=== PATIENT | male | born 1955 | race Caucasian/White ===

== ENCOUNTER 2017-12-09 11:25 | Day surgery (SDC) | payer BC ==
[2017-12-09] MEDS ORDERED: ALPRAZolam 0.5 MG TAB PO ONE (11:26)
[2017-12-09 11:39] VITALS: RESP 16; TEMP 97.9
[2017-12-09 12:57] VITALS: BP 124/83; PULSE 69
--- NOTE | 2017-12-09 14:59 | US ---
EXAMINATION TYPE: US FNA thyroid DATE OF EXAM: 12/09/2017 COMPARISON: NONE HISTORY: Thyroid nodule, E04.1 Maximal barrier technique was utilized. Ultrasound using sterile technique. The skin overlying the no dule was localized with ultrasound and the overlying skin prepped and draped. Lidocaine used for loca l anesthesia. 5 passes with a 25-gauge needle were made into the nodule under ultrasound guidance. As pirate specimen submitted to cytology. Following the procedure hemostasis achieved. No immediate comp lication IMPRESSION: Status post ultrasound-guided fine-needle aspiration of thyroid nodule, pathology pending .
== END 2017-12-09 13:07 | disposition home or self-care (01) ==
LOC: RADPROMAIN 11:25
PROVIDERS: ATTEND Family Medicine
DX: E04.1 Nontoxic single thyroid nodule (principal)
CPT/HCPCS: 10022; 76942; 88173; 88305

== ENCOUNTER 2018-10-22 07:04 | Day surgery (SDC) | payer BC ==
[2018-10-20 09:51] VITALS: BMI 27.8
[~2018-10-22 07:04] MED LIST: LACTATED RINGERS 1,000 ML IV SCH
[2018-10-22 07:21] VITALS: TEMP 97.8
[2018-10-22] MEDS ORDERED: PROPOFOL 10 MG/ML 20 ML VIAL IV ONE (08:04)
--- NOTE | 2018-10-22 08:14 | P.GSHP ---
History of Present Illness H&P Date: 10/22/18 Chief Complaint: History of colon polyps This is a 63-year-old male referred from Dr. Fiona jackson. Patient is today for colonoscopy. He's had history of colon polyps. Past Medical History Past Medical History: Osteoarthritis (OA), Prostate Disorder Additional Past Medical History / Comment(s): DIVERTICULITIS. hx ruptured colon November 21, 2015. OA NECK, PINCHED NERVE. History of Any Multi-Drug Resistant Organisms: None Reported Past Surgical History: Bowel Resection, Orthopedic Surgery, Tonsillectomy Additional Past Surgical History / Comment(s): colonosocpy. lt shoulder sx. orif rt elbow. colostomy, THEN REVERSAL. Past Anesthesia/Blood Transfusion Reactions: No Reported Reaction Smoking Status: Former smoker - Past Family History Mother Family Medical History: No Reported History Medications and Allergies Home Medications Medication Instructions Recorded Confirmed Type Cyclobenzaprine [Flexeril] 5 mg PO BID 02/13/16 10/22/18 History Gabapentin 600 mg PO BID 02/13/16 10/22/18 History Ibuprofen [Motrin] 800 mg PO BID 02/13/16 10/20/18 History Acetaminophen [Tylenol Extra 1,000 mg PO Q6H PRN 09/02/17 10/20/18 History Strength] Amitriptyline HCl 10 mg PO HS 09/02/17 10/22/18 History Ergocalciferol [Vitamin D2] 50,000 unit PO FR 09/02/17 10/22/18 History Ranitidine HCl [Zantac] 300 mg PO DAILY 09/02/17 10/22/18 History Tamsulosin HCl [Flomax] 0.4 mg PO DAILY 09/02/17 10/22/18 History Multivitamin/Iron/Folic Acid 1 each PO DAILY 10/20/18 10/22/18 History [Centrum Adults Tablet] Allergies Allergy/AdvReac Type Severity Reaction Status Date / Time Iodinated Contrast- Oral and Allergy Nausea & Verified 10/22/18 07:22 IV Dye Vomiting Penicillins Allergy Unknown Verified 10/22/18 07:22 Childhood IV DYE AdvReac Nausea & Uncoded 10/22/18 07:22 Vomiting Surgical - Exam Vital Signs Temp Pulse Resp BP Pulse Ox 97.8 F 71 17 143/90 98 10/22/18 07:19 10/22/18 07:19 10/22/18 07:19 10/22/18 07:19 10/22/18 07:19 - General well developed, no distress - Eyes PERRL - ENT normal pinna - Neck no masses - Respiratory normal expansion - Cardiovascular Rhythm: regular - Abdomen Abdomen: soft, non tender Assessment and Plan Assessment: History of colon polyps. We'll perform colonoscopy.
--- NOTE | 2018-10-22 08:27 | P.OP ---
Date of Procedure: 10/22/18 Preoperative Diagnosis: History of colon polyps Postoperative Diagnosis: Diverticulosis Procedure(s) Performed: Colonoscopy Anesthesia: MAC Surgeon: Anthony Quintana Pathology: other (None) Condition: stable Disposition: PACU Description of Procedure: The patient's placed on the endoscopy table in the lateral position. He received IV sedation. Digital rectal exam was performed which revealed no abnormalities. The flexible colonoscope was then placed patient anus and passed throughout the entire colon. The ileocecal valve was visualized. Cecum , ascending and transverse colon appeared normal. The descending colon had a few scattered diverticula.. The patient a previous colorectal anastomosis and this was normal. Scope was withdrawn into the rectum and this scope was withdrawn for patient.
[2018-10-22 09:04] VITALS: BP 121/81; PULSE 63; RESP 18
== END 2018-10-22 09:05 | disposition home or self-care (01) ==
LOC: ORWHC2ENDO 07:04
PROVIDERS: ATTEND Surgery
DX: Z12.11 Encounter for screening for malignant neoplasm of colon (principal); Z86.010 Personal history of colon polyps; K57.30 Diverticulosis of large intestine without perforation or abscess without bleeding; Z98.0 Intestinal bypass and anastomosis status; N42.9 Disorder of prostate, unspecified; M19.90 Unspecified osteoarthritis, unspecified site; Z87.891 Personal history of nicotine dependence; Z79.1 Long term (current) use of non-steroidal anti-inflammatories (NSAID); Z79.899 Other long term (current) drug therapy; Z88.0 Allergy status to penicillin; Z91.041 Radiographic dye allergy status
CPT/HCPCS: J2704; G0105; 45378

== ENCOUNTER → 2020-01-05 | Outpatient (CLI) | payer BC ==
--- NOTE | 2020-01-05 14:10 | CTL ---
EXAMINATION TYPE: CT Low Dose Lung DATE OF EXAM ORDERED: 01/05/2020 HISTORY: Personal history of tobacco use. Lung cancer screening CT DLP: [address] CTDI: 2.41 mGy Automated exposure control for dose reduction was used. SCREENING VISIT: Initial COMPARISON: None TECHNIQUE: Low dose computed tomography scan was performed through the chest at 1 mm thick sections a nd reconstructed images in the coronal plane at [address] DIAGNOSTIC QUALITY: Satisfactory FINDINGS: LUNG NODULES: Present, detailed below: There is a 0.5 cm peripheral right apical nodule. Series 5 image 25. There is a 0.3 cm nodule periphery right upper lobe. Series 5 image 44. LUNGS: COPD: Severity: None Fibrosis: Severity: None Lymph nodes: None Other findings: None RIGHT PLEURAL SPACE: Effusion: None Calcification: None Thickening: None Pneumothorax: None LEFT PLEURAL SPACE: Effusion: None Calcification: None Thickening: None Pneumothorax: None HEART: Heart Size: Normal Coronary calcification: Moderate Pericardial effusion: None OTHER FINDINGS: Upper abdomen: Normal Bony thorax: Normal Supraclavicular region: Normal Other: Ascending thoracic aorta at the level the main pulmonary artery measures 3.8 cm. The main pul monary artery at the bifurcation measures 3.4 cm. IMPRESSION: Couple of peripheral punctate nodularities within the right apex. Probably benign finding s. Short-term monitoring is recommended. FOLLOW UP CT CHEST RECOMMENDATION: Follow-up CT chest in [address] LUNG RAD: 3
== END ==
LOC: RADCTMAIN 07:53
PROVIDERS: ATTEND Family Medicine
DX: R91.8 Other nonspecific abnormal finding of lung field (principal); Z87.891 Personal history of nicotine dependence

== ENCOUNTER 2020-09-06 07:29 | Day surgery (SDC) | payer MEDICARE, BC, OTHER ==
[2020-09-04 10:54] VITALS: BMI 28.1
[2020-09-06 08:42] VITALS: RESP 16; TEMP 97.7
[2020-09-06] MEDS ORDERED: LIDOCAINE 1% (10MG/ML) FOR IV START INTRADERMA ONE (08:45)
[2020-09-06] MEDS ORDERED: LIDOCAINE 1% INJ 10MG/ML (20 ML MDV) ONE (09:13)
[2020-09-06] MEDS ORDERED: PROPOFOL 10 MG/ML 20 ML VIAL IV ONE (09:13)
--- NOTE | 2020-09-06 09:13 | P.GSHP ---
History of Present Illness H&P Date: 09/06/20 Chief Complaint: Screening colonoscopy This a 64-year-old male presents today for screening colonoscopy. He denies a significant recheck complains. Past Medical History Past Medical History: Hyperlipidemia, Osteoarthritis (OA), Prostate Disorder Additional Past Medical History / Comment(s): DIVERTICULITIS. hx ruptured colon November 21, 2015. OA NECK, PINCHED NERVE. History of Any Multi-Drug Resistant Organisms: None Reported Past Surgical History: Bowel Resection, Orthopedic Surgery, Tonsillectomy Additional Past Surgical History / Comment(s): bowel resection with colostomy/later reversal, left shoulder surgery, surgery for fx rt elbow, Past Anesthesia/Blood Transfusion Reactions: No Reported Reaction Smoking Status: Current some day smoker - Past Family History Mother Family Medical History: No Reported History Medications and Allergies Home Medications Medication Instructions Recorded Confirmed Type Ergocalciferol [Vitamin D2] 50,000 unit PO FR 09/02/17 09/06/20 History Tamsulosin HCl [Flomax] 0.4 mg PO DAILY 09/02/17 09/06/20 History Multivitamin/Iron/Folic Acid 1 each PO DAILY 10/20/18 09/06/20 History [Centrum Adults Tablet] Acetaminophen [Tylenol Arthritis] 650 mg PO BID 09/04/20 09/06/20 History Aspirin [Adult Low Dose Aspirin EC] 81 mg PO DAILY 09/04/20 09/06/20 History Atorvastatin [Lipitor] 40 mg PO HS 09/04/20 09/06/20 History Baclofen 10 mg PO QAM 09/04/20 09/06/20 History Famotidine [Pepcid] 40 mg PO BID 09/04/20 09/06/20 History Meloxicam 15 mg PO DAILY 09/04/20 09/06/20 History OXcarbazepine [Trileptal] 300 mg PO QAM 09/04/20 09/06/20 History Allergies Allergy/AdvReac Type Severity Reaction Status Date / Time Iodinated Contrast Media Allergy Nausea & Verified 09/04/20 10:39 [Iodinated Contrast- Oral Vomiting and IV Dye] Penicillins Allergy Unknown Verified 09/04/20 10:39 Childhood IV DYE AdvReac Nausea & Uncoded 09/04/20 10:39 Vomiting Surgical - Exam Vital Signs Temp Pulse Resp BP Pulse Ox 97.7 F 66 16 143/87 98 09/06/20 08:38 09/06/20 08:38 09/06/20 08:38 09/06/20 08:38 09/06/20 08:38 - General well developed, well nourished, no distress - Eyes PERRL - ENT normal pinna - Neck no masses, no bruits - Respiratory normal expansion - Cardiovascular Rhythm: regular - Abdomen Abdomen: soft, non tender Assessment and Plan Assessment: We'll perform screening colonoscopy.
--- NOTE | 2020-09-06 09:34 | P.OP ---
Date of Procedure: 09/06/20 Preoperative Diagnosis: Screening colonoscopy Postoperative Diagnosis: Left colon polyp Normal colonoscopy status post sigmoid colectomy Procedure(s) Performed: colonoscopy Anesthesia: MAC Surgeon: Anthony Quintana Pathology: other (colon polyp) Condition: stable Disposition: PACU Description of Procedure: The patient's placed on the endoscopy table lateral position. He received IV sedation. Digital rectal exam performed which revealed no the abnormalities. The prostate was symmetric without nodules. The flexible colonoscope was then placed patient anus passed throughout the entire colon. The ileocecal valve was visually's. The cecum, ascending and transverse colon appeared normal. In the descending colon there is small sessile polyp was removed with cold forcep. The scope was withdrawn. The colorectal anastomosis was visualized. Scope summer back the rectum this appeared normal. Scope.
[2020-09-06 09:53] VITALS: BP 117/87; PULSE 59
== END 2020-09-06 10:18 | disposition home or self-care (01) ==
LOC: ORWHC2ENDO 07:29
PROVIDERS: ATTEND Surgery
DX: Z12.11 Encounter for screening for malignant neoplasm of colon (principal); D12.4 Benign neoplasm of descending colon; Z98.0 Intestinal bypass and anastomosis status; E78.5 Hyperlipidemia, unspecified; M19.90 Unspecified osteoarthritis, unspecified site; Z87.19 Personal history of other diseases of the digestive system; F17.210 Nicotine dependence, cigarettes, uncomplicated; N40.0 Benign prostatic hyperplasia without lower urinary tract symptoms; K21.9 Gastro-esophageal reflux disease without esophagitis; Z97.2 Presence of dental prosthetic device (complete) (partial); Z98.890 Other specified postprocedural states; Z79.1 Long term (current) use of non-steroidal anti-inflammatories (NSAID); Z79.82 Long term (current) use of aspirin; Z79.899 Other long term (current) drug therapy; Z88.0 Allergy status to penicillin; Z91.041 Radiographic dye allergy status
CPT/HCPCS: 88305; 45380; J2001; J2704

== ENCOUNTER → 2020-09-10 | Outpatient (CLI) | payer MEDICARE, BC ==
[2020-09-10 11:43] LABS: African American GFR (CKD) >90 (>60 ml/min/1.73 sqM); Blood Urea Nitrogen 21 mg/dL (9-20); Non-African American GFR(CKD) 89 (>60 ml/min/1.73 sqM)
--- NOTE | 2020-09-10 18:40 | CT ---
EXAMINATION TYPE: CT chest w con DATE OF EXAM: 09/10/2020 COMPARISON: CT low dose lung screening 01/05/2020 HISTORY: Pulmonary nodule CT DLP: 395.9 mGycm Automated exposure control for dose reduction was used. CONTRAST: CT scan of the chest is performed with IV Contrast, patient injected with 100 mL of Isovue 300. FINDINGS: LUNGS: 4 mm right upper lobe pulmonary nodule (4:13) and is unchanged versus 01/05/2020. The previousl y demonstrated apical pulmonary nodule is not discretely seen on current exam, and may be related to biapical pleural thickening which is unchanged (6:60). Mild centrilobular emphysema. Lungs are grossl y clear. No new concerning parenchymal mass or nodule identified. No pleural effusion. No pneumothora x. The tracheobronchial tree is patent. MEDIASTINUM/SOFT TISSUES: No axillary, hilar, or mediastinal lymphadenopathy greater than 1 cm. Cardi ac size is normal. No pericardial effusion. No thoracic aortic aneurysm. The ascending thoracic aorta measures 3.5 cm, within normal limits. The main pulmonary artery is enlarged measuring 3.1 cm. The r ight thyroid lobe is asymmetrically enlarged and heterogenous. UPPER ABDOMEN: 2.3 x 1.8 cm right adrenal indeterminate nodule. Splenule. Too small to characterize h ypodense lesion at the right hepatic dome (3:45). OSSEOUS: Degenerative changes of the spine. IMPRESSION: 1. Right upper lobe 4 mm pulmonary nodule and biapical pleural thickening unchanged versus 01/05/2020 CT comparison. Findings are likely benign. Recommend follow-up annual low-dose lung screening CT in 1 year. 2. Indeterminate right adrenal 2.3 cm nodule. Recommend follow-up CT abdomen adrenal mass protocol. 3. Asymmetrically enlarged and heterogenous right thyroid gland. Recommend dedicated thyroid ultrasou nd. 4. Enlarged main pulmonary artery may represent pulmonary arterial hypertension. A Yellow level critical message alert has been initiated for Fiona Fletcher DO via the [facility] Critical Results System on 09/10/2020 6:37 PM. This message alert has been sent to Fiona Fletcher DO via the preferences provided by the clinician for the receipt of Radiology Critical Findings. inMarket e ID [id number].
== END | disposition home or self-care (01) ==
LOC: RADCTMAIN 11:03
PROVIDERS: ATTEND Family Medicine
DX: R91.1 Solitary pulmonary nodule (principal); J92.9 Pleural plaque without asbestos; I28.8 Other diseases of pulmonary vessels
CPT/HCPCS: 82565; 84520; 71260; 36415; Q9967

== ENCOUNTER → 2020-09-25 | Outpatient (CLI) | payer MEDICARE, BC, OTHER ==
[2020-09-25 14:29] LABS: African American GFR (CKD) >90 (>60 ml/min/1.73 sqM); Blood Urea Nitrogen 23 mg/dL (9-20); Non-African American GFR(CKD) 84 (>60 ml/min/1.73 sqM)
--- NOTE | 2020-09-26 08:02 | CT ---
EXAMINATION TYPE: CT abdomen w con, adrenal mass protocol. DATE OF EXAM: 09/25/2020 COMPARISON: Correlation CT chest 01/05/2020 HISTORY: 65-year-old male Adrenal mass TECHNIQUE: Contiguous axial scanning of the abdomen before and following administration of 100 ml Iso patrice 300 IV contrast. Lung delays through the adrenal glands were also performed. Coronal and sagitta l reconstructions. CT DLP: 1001.6 mGycm Automated exposure control for dose reduction was used. FINDINGS: Heart normal size without pericardial effusion. Lung bases clear without pleural effusion. Liver borderline in size at 17.2 cm. No focal lesion or biliary ductal dilatation. Portal venous syst em is patent. Gallbladder, left adrenal gland, kidneys, spleen with a couple inferior splenules, and pancreas appea r within normal limits. Right adrenal nodule measures 2.2 x 2.0 cm. Attenuation on the noncontrast series is 2 to 5 Hounsfiel d units compatible with a lipid rich adrenal adenoma. No dilated small bowel, free fluid, or free air. No mesenteric or retroperitoneal lymphadenopathy. Normal appendix. Mild stool burden. No pericolonic inflammatory change. Bones: Facet arthropathy lower lumbar spine. Degenerated S-shaped curvature of the lumbar spine. Grad e 1 retrolisthesis L2-L3 and L3-L4. IMPRESSION: A 2.2 X 2.0 CM NODULE OF THE RIGHT ADRENAL GLAND WITH DENSITY CHARACTERISTICS COMPATIBLE WITH A BENIG N LIPID RICH ADRENAL ADENOMA.
== END | disposition home or self-care (01) ==
LOC: RADCTMAIN 13:48
PROVIDERS: ATTEND Family Medicine
DX: E27.8 Other specified disorders of adrenal gland (principal); Z91.041 Radiographic dye allergy status
CPT/HCPCS: 82565; 84520; 74160; 36415; Q9967

== ENCOUNTER → 2020-10-08 | Outpatient (CLI) | payer MEDICARE, BC, OTHER ==
--- NOTE | 2020-10-08 11:54 | NM ---
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 FINDINGS: There is homogeneous distribution of radiotracer throughout both thyroid lobes. I do not see evidence for hot or cold nodule. IMPRESSION: No evidence for hot or cold nodule at this time.
== END | disposition home or self-care (01) ==
LOC: RADNMMAIN 10:36
PROVIDERS: ATTEND Family Medicine
DX: E01.0 Iodine-deficiency related diffuse (endemic) goiter (principal); Z88.0 Allergy status to penicillin; Z91.041 Radiographic dye allergy status
CPT/HCPCS: 78013; A9512

== ENCOUNTER → 2021-08-30 | Outpatient (CLI) | payer MEDICARE, BC, OTHER ==
--- NOTE | 2021-08-30 10:35 | XR ---
EXAMINATION TYPE: XR Hip Complete RT DATE OF EXAM: 08/30/2021 COMPARISON: Right hip HISTORY: Right hip pain TECHNIQUE: 2 view right hip FINDINGS: No acute fracture or dislocation is evident. Femoral head articulates with the acetabulum. Joint space appears preserved. IMPRESSION: 1. Normal 2 view right hip
== END | disposition home or self-care (01) ==
LOC: RADXRMAIN 10:13
PROVIDERS: ATTEND Family Medicine
DX: M25.551 Pain in right hip (principal)
CPT/HCPCS: 73502

== ENCOUNTER → 2021-10-23 | Outpatient (CLI) | payer MEDICARE, OTHER ==
--- NOTE | 2021-10-24 04:49 | MR ---
EXAMINATION TYPE: MR lumbar spine wo con DATE OF EXAM: 10/23/2021 COMPARISON: None HISTORY: Chronic low back pain Multiplanar multiecho imaging of the lumbar spine without contrast. The lumbar vertebra have normal alignment. There is degenerative disc space narrowing throughout the lumbar spine. There is no compression fracture. At T12-L1 on the left side in the lateral recess there is a rounded 14 mm low signal mass. This is in contact with the T12-L1 disc but not clearly a disc herniation. This could be excluded axial mass begum ch as a meningioma this has intermediate signal on T1 and lower signal on T2 images. There is mild multilevel posterior disc bulging from T12 to S1. There is overall developmentally adeq uate spinal canal and not a significant spinal stenosis. The sacroiliac joints are intact. There is n o lumbar paraspinal mass. There is no focal bone destruction. There is no compression fracture. IMPRESSION: There is mass in the spinal canal on the left side at T12-L1 that appears intradural and could be a m eningioma. Contrast MR scan is recommended for further evaluation. Unusual sequestered disc herniatio n also possible. There are multilevel spondylotic changes. There is overall not a significant spinal stenosis.
== END | disposition home or self-care (01) ==
LOC: RADMRIMAIN 06:56
PROVIDERS: ATTEND Family Medicine
DX: M54.41 Lumbago with sciatica, right side (principal)
CPT/HCPCS: 72148

== ENCOUNTER 2022-03-27 06:26 | Day surgery (SDC) | payer MEDICARE, OTHER ==
[2022-03-26 10:46] VITALS: BMI 27.3
[~2022-03-27 06:26] MED LIST changes: +LIDOCAINE 1% (10MG/ML) FOR IV START INTRADERMA PRN
[2022-03-27 07:31] VITALS: RESP 16; TEMP 97.6
[2022-03-27] MEDS ORDERED: fentaNYL (PF) 50 MCG/ML 2 ML AMP ONE (07:58)
[2022-03-27] MEDS ORDERED: ROPIVACAINE 5MG/ML 20ML VIAL ONE (07:58)
[2022-03-27] MEDS ORDERED: methylPREDNISolone ACETATE 40 MG/ML 1 ML VIAL ONE (07:58)
[2022-03-27] MEDS ORDERED: MIDAZOLAM 2 MG/2 ML VIAL ONE (07:58)
--- NOTE | 2022-03-27 08:23 | P.PCN ---
Date of Procedure: 03/27/22 Procedure(s) Performed: PREOPERATIVE DIAGNOSIS : 1- Lumbar spondylosis with Facet Arthropathy without myelopathy . 2- Lumber degenerative disc disease POSTOPERATIVE DIAGNOSIS: 1- Lumbar spondylosis with Facet Arthropathy without myelopathy . 2- Lumber degenerative disc disease PROCEDURE: Diagnostic bilateral L3 , L4 , and L5 medial branch block under fluoroscopy guidance(fluoroscopy images available in the radiology Department ) ( To target the facet joint between bilateral L4-5 , and L5-S1 )#1 st ANESTHESIA:, moderate sedation with intravenous Versed 2 mg and Fentanyl 100 mcg. EBL: Minimal COMPLICATION: None PROCEDURE INDICATION: Chronic low back pain secondary to Facet arthropathy unresponsive to conservative treatment. PROCEDURE DESCRIPTION: the patient was seen and identified in the preop holding area , risks and benefits and possible complications of the procedure and alternative were discussed with the patient, and the patient agreed to proceed with the procedure and signed the consent and vital signs monitored during the procedure and fluoroscopy was used to maximize the benefit and accuracy of the needle placement, and sedation was given to decrease patient anxiety, patient was taken to the procedure room and placed in prone position vital signs monitored in the back prepped with chlorhexidine X3 then under strict sterile technique using a right oblique fluoroscopy ,the junction of the transverse process and the superior articulating process of the right L3 , L4 , and L5 vertebra which corresponding to the fluoroscopy image of the eye of the Marin dog on the block side for the medial branches and subsequently , after local infiltration of skin and subcu tissuies with Ropivacaine 0.5 % , one mL at each level ,then 22-gauge Quincke-type needles , 3 needle was used , each one of them placed at the junction of the base of the transverse process and the superior articular process at the appropriate level, and the needle was advanced until the periosteum contacted, needle placement confirmed with AP oblique and lateral view and after appropriate needle placement confirmed, and after negative aspiration for heme and CSF and there was no paresthesia 1-1/2 mL of Ropivacaine 0.5% mixed with 40 mg Depo-Medrol , then half mL injected at each level after negative aspiration the needle subsequently removed and the same procedure repeated for the left side at left side at L3 , L4 and L5 levels. At the end of the procedure and the needles removed and a bandage applied after the skin was cleaned the cleaning solution patient taken to recovery room in stable condition and monitors in the recovery room for 20-30 minutes and discharged home in stable condition after discharge criteria met and patient will follow up with the pain clinic in 2-4 weeks. note= she was referred to [facility] pain clinic from Dr. Melendez office for right side facet injection at L4 5 and L5-S1, in the preoperative holding area patient reported that he had pain on both sides of his low back pain even though his pain more prominent on the right side that he had pain also on the left side, for this reason , the procedure was changed to bilateral medial branch blocks lumbar area L4 5 and L5-S1 , and we did the approval from the insurance to do the procedure bilaterally.
[2022-03-27] MEDS ORDERED: IV FLUID CONTINUATION 800 ML IV ONE (08:25)
[2022-03-27 08:40] VITALS: BP 115/73; PULSE 62
--- NOTE | 2022-03-27 09:59 | FL ---
EXAMINATION TYPE: FL guided pain mgmt statistic DATE OF EXAM: 03/27/2022 CLINICAL HISTORY: Low back pain. TECHNIQUE: Fluoroscopy. COMPARISON: None. FINDINGS: Fluoroscopic guidance was provided during pain relief procedure performed by Dr. Lincoln . A total of 8 seconds of fluoroscopic time was utilized during the procedure and 4 spot images are acquired. Images acquired shows needle localization at several levels in the lower lumbar spine. IMPRESSION: As Above.
== END 2022-03-27 08:55 | disposition home or self-care (01) ==
LOC: ORPAIN 06:26
PROVIDERS: ATTEND Specialist
DX: M47.816 Spondylosis without myelopathy or radiculopathy, lumbar region (principal); G89.29 Other chronic pain
CPT/HCPCS: 64493; 64494; J2250; J1030; J3010; J2795; 99152

== ENCOUNTER → 2022-04-21 | Outpatient (CLI) | payer MEDICARE, OTHER ==
[2022-04-21 08:38] VITALS: BP 135/87; PULSE 67; RESP 18; TEMP 98.8
--- NOTE | 2022-04-21 08:39 | P.PN ---
Subjective Progress Note Date: 04/21/22 Principal diagnosis: A 66 yr old male with at side with a history of severe and chronic low back pain secondary to lumbar degenerative disc diseases and lumbar spondylosis with facet arthropathy presents today for evaluation s/p BL facet block of the medial branches L4-L5, L5-S1 #1. He states he experienced 80% pain relief for 10 days status post procedure. Pain level is currently at 7 out of 10 in intensity, localized to the lower lumbar spine, sharp in character, right side greater than left, and shooting pain occasionally occurs left and right of midline. Pain is provoked by walking and standing for periods of 20 minutes or more. Pain is alleviated with medications, PT completed a few weeks ago, massage therapy monthly, chiropractic treatments were discontinued from chiropractor's recommendations, alternating heat & ice and rest. Interventional pain procedures completed include BL facet block of the medial branches L4-L5, L5-S1 Patient is currently on Mobic, Baclofen, OTC Tylenol, Voltaren gel Patient denies any side effects of the medication(s), denies excessive drowsiness or sleepiness, denies suicidal ideation and reports that the current pain medication is helping to control the pain and improve activities of daily living. Patient denies any motor or sensory deficits. Patient denies any fever or night sweats, denies any change in the bowel movements or urination. Physical Examination: -Constitutional: Cooperative. Not in acute distress . -HEENT: Neck is supple. No lymphadenopathy. No thyromegaly. Normal thyroid size. Eyes: No ptosis , no icterus, no photophobia. ENT: No auditory deficits. Normal oropharynx. No Thrush. - Respiratory: Chest clear to auscultations bilaterally. No wheezing. No rhonchi. - Cardiovascular: Regular rate and rhythm. S1 / S2 , no S3 , no S4. - Gastrointestinal: Abdomen soft no tenderness. Bowel sounds positive in all four quadrants. No organomegaly. - Genitourinary: Deferred. - Neurologic: Cranial nerve II to XII intact. No focal neurological defici ts. - Psychatric: Alert & oriented x 3. Matching mood & appropriate affect. Judgment and insight intact. - Lymphatic: No Lymphadenopathy. - Musculoskeletal: Cervical spine: Muscle bulk/ tone/ strength in the bilateral upper extremities normal Vertebral body tenderness to palpation over Facet loading test positive Thoracic spine Muscle bulk / tone/ strength in the bilateral paraspinal muscles normal Vertebral body tender to palpation over Facet loading test positive Lumbar spine: Motor bulk/ tone/ strength lower extremities , thigh and legs : 5/5 Deep tendon reflexes : Normal Knee Jerk. Normal Ankle Jerk . Vertebral body tenderness to palpation over Lumbar Facet Loading Test positive over BL L4-L5, L5-S1 w jump reflex Straight Leg Raise: positive at 30 degrees right side/ left side Gaenslen's Test positive Sacral spine : Severe tenderness over the Sacroiliac joint: right side / left side Range of motion: Flexion of the lumbar spine <60 degrees Range of motion: Extension of the lumbar spine <20 degrees Gaenslen's Test positive Stoney's Test positive Elizabeth test: positive right side / left side Thigh Thrust Test Sacral Thrust Test Assessment and plan: Chronic low back pain secondary to lumbar degenerative disc disease , lumbar spondylosis with facet arthropathy without myelopathy Recommendation of BL facet blocks medial branches L4-L5, L5-S1 #2. May need a series of injections, up until RFA, for optimal pain relief. Risks, benefits of procedure discussed and pt verbalized understanding. Denies medical history of diabetes. Admits to daily aspirin use. Protocol for discontinuation/continuation of medications beni procedure discussed. All patient questions answered MAPS reviewed and it was appropriate. I have spent 31 minutes on patient care today. Dr Lincoln was available by phone for the evaluation of this patient. The time was used to review the medical records including relevant urine studies and Prescription history (MAPs), review of the available imaging, evaluation and examination of the patient, coordination of care with the medical staff and if applicable referring physicians, as well as creation of the medical record PQRS Measure Charge Sheet Mode of Arrival: Ambulatory PQRS Narrative: Smoking Status Former smoker Blood Pressure 135/87 Pain Intensity [Left Back] 7 Scale Used Numeric (1 - 10) Hx Alcohol Use (MH) Yes Home Medications: Ambulatory Orders Ergocalciferol [Vitamin D2] 50,000 unit PO FR 09/02/17 Tamsulosin HCl [Flomax] 0.4 mg PO HS 09/02/17 Multivitamin/Iron/Folic Acid [Centrum Adults Tablet] 1 each PO DAILY 10/20/18 Acetaminophen [Tylenol Arthritis] 650 mg PO BID 09/04/20 Aspirin [Adult Low Dose Aspirin EC] 81 mg PO DAILY 09/04/20 Atorvastatin [Lipitor] 40 mg PO HS 09/04/20 Baclofen 10 mg PO QAM 09/04/20 Famotidine [Pepcid] 40 mg PO BID 09/04/20 Meloxicam 15 mg PO DAILY 09/04/20 OXcarbazepine [Trileptal] 300 mg PO QAM 09/04/20 Alendronate Sodium [Fosamax] 70 mg PO FR 02/19/22
== END ==
LOC: PNWHC3 08:01
PROVIDERS: ATTEND Specialist
DX: M51.36 Other intervertebral disc degeneration, lumbar region (principal); M47.816 Spondylosis without myelopathy or radiculopathy, lumbar region; G89.29 Other chronic pain; Z87.891 Personal history of nicotine dependence; Z91.041 Radiographic dye allergy status; Z88.0 Allergy status to penicillin
CPT/HCPCS: 99211

== ENCOUNTER 2022-05-23 10:57 | Day surgery (SDC) | payer MEDICARE, OTHER ==
[2022-05-21 09:03] VITALS: BMI 26.9
[~2022-05-23 10:57] MED LIST changes: -LIDOCAINE 1% (10MG/ML) FOR IV START INTRADERMA PRN
[2022-05-23 11:26] VITALS: RESP 16; TEMP 97.6
[2022-05-23] MEDS ORDERED: MIDAZOLAM 2 MG/2 ML VIAL ONE (11:27)
--- NOTE | 2022-05-23 11:28 | P.PCN ---
Date of Procedure: 05/23/22 Procedure(s) Performed: Lumbar medial branch block at L4 5 L5-S1 #2 Description of Procedure: Procedure: BILATERAL L4-5, L5-S1 #2 Diagnosis: Lumbar spondylosis without myelopathy Anesthesia: Local and Versed Imaging: Fluoroscopy was used, images where saved to the medical record The patient was seen and examined in the [facility]. Procedure risks and benefits were fully reviewed with the patient. The patient understands this is a diagnostic if local only is used, as will be the case today. The goal of the procedure is to inject medication onto the medial branch or small nerves that innervate the facet joints. In this way, we can hopefully identify which of these joints, if any, may be contributing to their pain. Informed consent for procedure was obtained. The patient was taken into the office fluoroscopy procedure room and placed prone on the table. A pillow was placed under the abdomen to reduce lumbar lordosis. Vital signs were closely monitored during the procedure. The skin over the area was prepped with Betadine X 3 and draped in usual sterile manner. Sterile technique was observed throughout procedure. Under biplanar fluoroscopic guidance, the target injection area of the L4, L5, Sacral Ala were targeted. A 25 gauge 31/2 inch spinal needle was then placed at the most medial and superior aspect of the transverse process near the "eye of the Marin dog". Aspiration for blood was negative. 1 cc of 0.5% Ropivacaine was injected into the targeted areas separately. Wesley were withdrawn intact. No complications were noted during the procedure. The patient tolerated the procedure well. The patient was placed in supine position and transferred to the recovery area for observation and remained stable until discharged home. Home discharge instructions were given to the patient by the staff. The patient will schedule a follow up as directed.
[2022-05-23] MEDS ORDERED: ROPIVACAINE 5 MG/ML 20 ML AMPULE ONE (11:29)
[2022-05-23] MEDS ORDERED: IV FLUID CONTINUATION 1,000 ML IV ONE (11:30)
[2022-05-23] MEDS ORDERED: LACTATED RINGERS 1,000 ML IV ONE (11:48)
--- NOTE | 2022-05-23 11:59 | FL ---
Fluoroscopy HISTORY: Pain 6 seconds fluoroscopy time supplied to the referring clinician. 6 intraoperative C-arm images docume nt the procedure. See dictated report from anesthesia.
[2022-05-23 12:06] VITALS: BP 128/66; PULSE 62
== END 2022-05-23 12:45 | disposition home or self-care (01) ==
LOC: ORPAIN 10:57
PROVIDERS: ATTEND Hospitalist
DX: M47.816 Spondylosis without myelopathy or radiculopathy, lumbar region (principal); E78.5 Hyperlipidemia, unspecified; K21.9 Gastro-esophageal reflux disease without esophagitis; Z87.891 Personal history of nicotine dependence; N42.9 Disorder of prostate, unspecified; Z88.0 Allergy status to penicillin; Z91.041 Radiographic dye allergy status; Z79.82 Long term (current) use of aspirin; Z79.899 Other long term (current) drug therapy; Z79.1 Long term (current) use of non-steroidal anti-inflammatories (NSAID)
CPT/HCPCS: 64493; 64494; J2250; J2795

== ENCOUNTER → 2022-06-12 | Outpatient (CLI) | payer MEDICARE, OTHER ==
[2022-06-12 13:04] VITALS: BP 145/85; PULSE 69; RESP 18; TEMP 98.4
--- NOTE | 2022-06-12 14:31 | P.PAINPG ---
PQRS Measure Charge Sheet Comment: A 66 yr old male w at side with a history of severe and chronic low back pain secondary to lumbar degenerative disc diseases and lumbar spondylosis with facet arthropathy presents today for evaluation status post BL facet block medial branches L4-L5, L5-S1 #1. Patient states he experienced 85% pain relief x 1 day status post procedure. Pain level is currently at 6/10 in intensity, constant, localized in lower lumbar spine, constant, achy pain. Pain is provoked by sitting & standing for periods of 20 min or more. Pain is alleviated with PT in Oct 2022, massage therapy monthly, chiropractic treatment which ended in February 2022 after reviewing MRI results, heat, ice, medications (Tylenol, Motrin), topicals, repositioning, sitting and rest. Interventional pain procedures completed include BL MBB L4-L5, L5-S1 x 1 Patient is currently on Tylenol, Motrin OTC. Patient denies any side effects of the medication(s), denies excessive drowsiness or sleepiness, denies suicidal ideation and reports that the current pain medication is helping to control the pain and improve activities of daily living. Patient denies any motor or sensory deficits. Patient denies any fever or night sweats, denies any change in the bowel movements or urination. Physical Examination: -Constitutional: Cooperative. Not in acute distress . - Neurologic: Cranial nerve II to XII intact. No focal neurological deficits. - Psychatric: Alert & oriented x 3. Matching mood & appropriate affect. Judgment and insight intact. - Musculoskeletal: Cervical spine: Muscle bulk/ tone/ strength in the bilateral upper extremities normal Vertebral body tenderness to palpation over Spurling test positive Distraction test positive Facet loading test positive Thoracic spine Muscle bulk / tone/ strength in the bilateral paraspinal muscles normal Vertebral body tender to palpation over Facet loading test positive Lumbar spine: Motor bulk/ tone/ strength lower extremities , thigh and legs : 5/5 Deep tendon reflexes : Normal Knee Jerk. Normal Ankle Jerk . Vertebral body tenderness to palpation over Lumbar Facet Loading Test positive Straight Leg Raise: positive at 30 degrees right side/ left side Gaenslen's Test positive Sacral spine : Severe tenderness over the Sacroiliac joint: right side / left side Range of motion: Flexion of the lumbar spine <60 degrees Range of motion: Extension of the lumbar spine <20 degrees Gaenslen's Test positive Stoney's Test positive Elizabeth test: positive right side / left side Thigh Thrust Test Sacral Thrust Test Assessment and plan: Chronic low back pain secondary to lumbar degenerative disc disease , lumbar spondylosis with facet arthropathy without myelopathy Recommendation of BL RFA L4-L5, L5-S1. Pt exhibited sufficient and satisfactory short term pain relief s/p medial branch block procedure. Risks, benefits of procedure discussed and pt verbalized understanding. Denies anticoagulant use or medical history of diabetes. All patient questions answered MAPS reviewed and it was appropriate. I have spent less than 30 minutes on patient care today. Dr Lincoln was available by phone for the evaluation of this patient. The time was used to review the medical records including relevant urine studies and Prescription history (MAPs), review of the available imaging, evaluation and examination of the patient, coordination of care with the medical staff and if applicable referring physicians, as well as creation of the medical record PQRS Narrative: Smoking Status Former smoker Hx Alcohol Use (MH) Yes Home Medications: Ambulatory Orders Ergocalciferol [Vitamin D2] 50,000 unit PO FR 09/02/17 Tamsulosin HCl [Flomax] 0.4 mg PO HS 09/02/17 Multivitamin/Iron/Folic Acid [Centrum Adults Tablet] 1 each PO DAILY 10/20/18 Acetaminophen [Tylenol Arthritis] 650 mg PO BID 09/04/20 Aspirin [Adult Low Dose Aspirin EC] 81 mg PO DAILY 09/04/20 Atorvastatin [Lipitor] 40 mg PO HS 09/04/20 Baclofen 10 mg PO QAM 09/04/20 Famotidine [Pepcid] 40 mg PO BID 09/04/20 Meloxicam 15 mg PO DAILY 09/04/20 OXcarbazepine [Trileptal] 300 mg PO QAM 09/04/20 Alendronate Sodium [Fosamax] 70 mg PO FR 02/19/22 Controlled Substance Measures - Controlled Substance Measures Is patient prescribed a controlled substance at discharge?: No
== END | disposition home or self-care (01) ==
LOC: PNWHC3 12:16
PROVIDERS: ATTEND Specialist
DX: M47.896 Other spondylosis, lumbar region (principal); M51.36 Other intervertebral disc degeneration, lumbar region
CPT/HCPCS: 99211

== ENCOUNTER 2022-07-18 05:39 | Day surgery (SDC) | payer MEDICARE, OTHER ==
[2022-07-17 12:14] VITALS: BMI 26.9
[2022-07-18] MEDS ORDERED: LIDOCAINE 1% (10MG/ML) FOR IV START INTRADERMA PRN (05:49)
[2022-07-18] MEDS ORDERED: LACTATED RINGERS 1,000 ML IV SCH (05:49)
[2022-07-18 06:23] VITALS: TEMP 97
[2022-07-18] MEDS ORDERED: MIDAZOLAM 2 MG/2 ML VIAL ONE (06:59)
[2022-07-18] MEDS ORDERED: ROPIVACAINE 5 MG/ML 20 ML AMPULE ONE (06:59)
[2022-07-18] MEDS ORDERED: fentaNYL (PF) 50 MCG/ML 2 ML AMP ONE (06:59)
[2022-07-18] MEDS ORDERED: methylPREDNISolone ACETATE 40 MG/ML 1 ML VIAL ONE (06:59)
--- NOTE | 2022-07-18 07:30 | P.PCN ---
Date of Procedure: 07/18/22 Procedure(s) Performed: PREOPERATIVE DIAGNOSIS: 1-Lumbar Spondylosis with Facet Arthropathy without myelopathy. 2- Lumber degenerative disc disease. POSTOPERATIVE DIAGNOSIS: 1- Lumbar Spondylosis with Facet Arthropathy without myelopathy. 2- Lumber degenerative disc disease. PROCEDURES : Bilateral Radiofrequency thermocoagulation, L3 , L4 , and L5 medial branch, with fluoroscopic guidance (fluoroscopy images available in the radiology department) ( to denervate the facet joint at Bilateral L4-5 ,and L5-S1 levels ). ANESTHESIA: Monitored anesthesia care as per anesthesia department. EBL: Minimal PROCEDURE INDICATION: The patient with low back pain secondary to lumbar facet arthropathy who had more than 50% relief of her pain with previous diagnostic lumbar medial branch block with bupivacaine. PROCEDURE DESCRIPTION / TECHNIQUE: The patient was seen and identified in the preoperative area. Risks, benefits, complications, including but not limited to risk of infection ,bleeding , allergic reactions to the medications and no complete pain releife , and alternatives were discussed with the patient, the patient agreed to proceed with the procedure and signed the consent. IV was started. Vital signs remained stable throughout the procedure. Patient was taken to the OR and time out was completed. The patient was placed in the prone position on the procedure table. The lumber area was prepped and draped in the usual sterile fashion. . Vital signs were closely monitored during the procedure .IV sedation was used during the procedure to decrease patients anxiety. Using AP and then oblique fluoroscopy, the ``eye of the Marin dog ted esponding to the connection between the superior and transverse articular processes of right L3, L4, and L5 were identified, marked, and localized with 1% lidocaine. Subsequently, a 18 [id number] radiofrequency cannula with a 10- mm active tip was advanced guided by fluoroscopy to each of the``eyes of the Marin dog at right L3, L4, and L5. Each site then underwent sensory testing at 50 Hz and 0 to 1 volt and motor testing at 2.5 Hz and 0 to 3 volt with local stimulation, but no radicular symptoms down the legs. Thereafter each sites underwent radiofrequency thermocoagulation at 80 degrees celsius for 90 seconds after injecting 0.5 ml of PF Ropivacaine 1ml, then after the thermocoagulation done , 1 ml of the block solution containing Depo-Medrol 20 mg and 3 ml of Ropivacaine 0.5% was injected at the right L3 , L4 , and L5 , levels after negative aspiration of CSF and blood and with no paresthesias. Cannulas were retracted while injecting lidocaine 1% until the needle is out. The same procedure was repeated at the level of Left L3, L4, and L5 levels. At the end of the procedure, the skin was cleansed and bandages were applied. COMPLICATIONS: No acute complications. DISPOSITION / PLANS: The patient was placed in a supine position and transferred to the recovery area in a stable condition for observation and was discharged from the recovery room after meeting discharge criteria. Home discharge instructions given to the patient by the staff. The patient was reexamined prior to discharge. The patient will schedule a follow up in the clinic in 2-4 weeks.
[2022-07-18] MEDS ORDERED: IV FLUID CONTINUATION 400 ML IV ONE (07:34)
[2022-07-18 07:48] VITALS: BP 132/79; PULSE 55; RESP 17
--- NOTE | 2022-07-18 08:04 | FL ---
EXAMINATION TYPE: FL guided pain mgmt statistic DATE OF EXAM: 07/18/2022 CLINICAL HISTORY: Low back pain. TECHNIQUE: Fluoroscopy. COMPARISON: None. FINDINGS: Fluoroscopic guidance was provided during pain relief procedure performed by Dr. Lincoln . A total of 17 seconds of fluoroscopic time was utilized during the procedure and 6 spot images are acquired. Images acquired shows needle localization at several levels in the low back. IMPRESSION: As Above.
== END 2022-07-18 08:12 | disposition home or self-care (01) ==
LOC: ORPAIN 05:39
PROVIDERS: ATTEND Specialist
DX: M47.816 Spondylosis without myelopathy or radiculopathy, lumbar region (principal); M51.36 Other intervertebral disc degeneration, lumbar region; M54.50 Low back pain, unspecified; F41.9 Anxiety disorder, unspecified; E78.5 Hyperlipidemia, unspecified; F17.210 Nicotine dependence, cigarettes, uncomplicated; N40.0 Benign prostatic hyperplasia without lower urinary tract symptoms; M19.90 Unspecified osteoarthritis, unspecified site; K21.9 Gastro-esophageal reflux disease without esophagitis; Z96.611 Presence of right artificial shoulder joint; Z91.041 Radiographic dye allergy status; Z88.0 Allergy status to penicillin; Z98.890 Other specified postprocedural states
CPT/HCPCS: 64635; 64636; J2250; J1030; J3010; J2795

== ENCOUNTER → 2022-08-07 | Outpatient (CLI) | payer MEDICARE, OTHER ==
[2022-08-07 08:54] VITALS: BP 139/83; PULSE 61; RESP 18; TEMP 98
--- NOTE | 2022-08-07 09:51 | P.PAINPG ---
PQRS Measure Charge Sheet Comment: A 66 yr old male with a history of severe and chronic low back pain secondary to lumbar degenerative disc diseases and lumbar spondylosis with facet arthropathy without myelopathy presents today for evaluation s/p BL RFA L3-L5. Pt states he experienced 98% pain relief s/p procedure. Pain level is currently at 1 /10 in intensity, constant, localized in the mid to lower lumbar spine, achy in character w shooting L > R of midline. Pain is provoked by fisher lobster waking from a supine position or overactivity. Pain is alleviated with PT x 10 wks in Jan 2022, home exercises every morning, massages monthly, hx of chiropractic treatments were discontinued due to MRI findings, heat, ice, hot showers, meds (Tyl, Ibu), topicals and rest. Interventional pain procedures completed include BL RFA L3-5. Patient is currently on Tylenol, Ibuprofen. Patient denies any side effects of the medication(s), denies excessive drowsiness or sleepiness, denies suicidal ideation and reports that the current pain medication is helping to control the pain and improve activities of daily living. Patient denies any motor or sensory deficits. Patient denies any fever or night sweats, denies any change in the bowel movements or urination. Physical Examination: -Constitutional: Cooperative. Not in acute distress . - Neurologic: Cranial nerve II to XII intact. No focal neurological deficits. - Psychatric: Alert & oriented x 3. Matching mood & appropriate affect. Judgment and insight intact. - Musculoskeletal: Cervical spine: Muscle bulk/ tone/ strength in the bilateral upper extremities normal Vertebral body tenderness to palpation over Spurling test positive Distraction test positive Facet loading test positive Thoracic spine Muscle bulk / tone/ strength in the bilateral paraspinal muscles normal Vertebral body tender to palpation over Facet loading test positive Lumbar spine: Motor bulk/ tone/ strength lower extremities , thigh and legs : 5/5 Deep tendon reflexes : Normal Knee Jerk. Normal Ankle Jerk . Vertebral body tenderness to palpation over L5 w deep palpation Lumbar Facet Loading Test positive Straight Leg Raise: positive at 30 degrees right side/ left side Gaenslen's Test positive Sacral spine : Severe tenderness over the Sacroiliac joint: right side / left side Range of motion: Flexion of the lumbar spine <60 degrees Range of motion: Extension of the lumbar spine <20 degrees Gaenslen's Test positive Stoney's Test positive Elizabeth test: positive right side / left side Thigh Thrust Test Sacral Thrust Test Assessment and plan: Chronic low back pain secondary to lumbar degenerative disc disease , lumbar spondylosis with facet arthropathy without myelopathy Pt exhibited sufficient and substantial pain relief w the RFA. He will manage his residual pain w home pain mgmt modifying factors and may return to our clinic on an as needed basis. Risks, benefits of procedure discussed and pt verbalized understanding. Denies anticoagulant use or medical history of diabetes. All patient questions answered MAPS reviewed and it was appropriate. I have spent less than 30 minutes on patient care today. Dr Lincoln was available by phone for the evaluation of this patient. The time was used to review the medical records including relevant urine studies and Prescription history (MAPs), review of the available imaging, evaluation and examination of the patient, coordination of care with the medical staff and if applicable referring physicians, as well as creation of the medical record PQRS Narrative: Smoking Status Former smoker Hx Alcohol Use (MH) Yes Home Medications: Ambulatory Orders Ergocalciferol [Vitamin D2] 50,000 unit PO FR 09/02/17 Tamsulosin HCl [Flomax] 0.4 mg PO HS 09/02/17 Multivitamin/Iron/Folic Acid [Centrum Adults Tablet] 1 each PO DAILY 10/20/18 Acetaminophen [Tylenol Arthritis] 650 mg PO BID 09/04/20 Aspirin [Adult Low Dose Aspirin EC] 81 mg PO DAILY 09/04/20 Atorvastatin [Lipitor] 40 mg PO HS 09/04/20 Baclofen 10 mg PO QAM 09/04/20 Famotidine [Pepcid] 40 mg PO BID 09/04/20 Meloxicam 15 mg PO DAILY 09/04/20 OXcarbazepine [Trileptal] 300 mg PO QAM 09/04/20 Alendronate Sodium [Fosamax] 70 mg PO FR 02/19/22 Controlled Substance Measures - Controlled Substance Measures Is patient prescribed a controlled substance at discharge?: No
== END | disposition home or self-care (01) ==
LOC: PNWHC3 08:00
PROVIDERS: ATTEND Specialist
DX: M47.896 Other spondylosis, lumbar region (principal); M51.36 Other intervertebral disc degeneration, lumbar region
CPT/HCPCS: 99211

== ENCOUNTER 2022-09-25 07:30 | Day surgery (SDC) | payer MEDICARE, OTHER ==
[2022-09-25] MEDS ORDERED: LIDOCAINE 1% (10MG/ML) FOR IV START INTRADERMA PRN (07:50)
[2022-09-25 08:24] VITALS: TEMP 97.4
[2022-09-25] MEDS: LACTATED RINGERS 1,000 ML IV SCH ×2 (08:29→08:32)
[2022-09-25] MEDS ORDERED: LIDOCAINE 2% INJ 20 MG/ML (2 ML VIAL) ONE (08:33)
[2022-09-25] MEDS ORDERED: PROPOFOL 10 MG/ML 20 ML VIAL IV ONE (08:33)
--- NOTE | 2022-09-25 08:35 | P.GSHP ---
History of Present Illness H&P Date: 09/25/22 Chief Complaint: History of colon polyps This a 67-year-old male presents today for colonoscopy. Patient denies a significant GI complaints. He doesn't history of colon polyps. Past Medical History Past Medical History: GERD/Reflux, Hyperlipidemia, Osteoarthritis (OA), Prostate Disorder Additional Past Medical History / Comment(s): DIVERTICULITIS. hx ruptured colon November 21, 2015. OA NECK, PINCHED NERVE in neck, History of Any Multi-Drug Resistant Organisms: None Reported Past Surgical History: Bowel Resection, Orthopedic Surgery, Tonsillectomy Additional Past Surgical History / Comment(s): colonosocpy. lt shoulder sx. orif rt elbow. colostomy, THEN REVERSAL. Past Anesthesia/Blood Transfusion Reactions: No Reported Reaction Smoking Status: Current some day smoker - Past Family History Mother Family Medical History: CVA/TIA Medications and Allergies Home Medications Medication Instructions Recorded Confirmed Type Ergocalciferol [Vitamin D2] 50,000 unit PO FR 09/02/17 09/23/22 History Tamsulosin HCl [Flomax] 0.4 mg PO HS 09/02/17 09/25/22 History Multivitamin/Iron/Folic Acid 1 each PO DAILY 10/20/18 09/23/22 History [Centrum Adults Tablet] Acetaminophen [Tylenol Arthritis] 650 mg PO BID 09/04/20 09/25/22 History Aspirin [Adult Low Dose Aspirin EC] 81 mg PO DAILY 09/04/20 09/23/22 History Atorvastatin [Lipitor] 40 mg PO HS 09/04/20 09/25/22 History Baclofen 10 mg PO QAM 09/04/20 09/25/22 History Famotidine [Pepcid] 40 mg PO BID 09/04/20 09/25/22 History Meloxicam 15 mg PO DAILY 09/04/20 09/23/22 History OXcarbazepine [Trileptal] 300 mg PO QAM 09/04/20 09/25/22 History Alendronate Sodium [Fosamax] 70 mg PO FR 02/19/22 09/25/22 History Ibuprofen [Motrin] 400 mg PO Q6HR PRN 09/23/22 09/23/22 History Allergies Allergy/AdvReac Type Severity Reaction Status Date / Time Iodinated Contrast Media Allergy Nausea & Verified 09/25/22 08:11 [Iodinated Contrast- Oral Vomiting and IV Dye] Penicillins Allergy Unknown Verified 09/25/22 08:11 Childhood IV DYE AdvReac Nausea & Uncoded 09/25/22 08:11 Vomiting Surgical - Exam Vital Signs Temp Pulse Resp BP Pulse Ox 97.4 F L 63 16 114/74 96 09/25/22 08:22 09/25/22 08:22 09/25/22 08:22 09/25/22 08:22 09/25/22 08:22 - General well developed, well nourished, no distress - Eyes PERRL - ENT normal pinna - Neck no masses - Respiratory normal expansion - Cardiovascular Rhythm: regular - Abdomen Abdomen: soft, non tender Assessment and Plan Assessment: History of colon polyps. We'll perform colonoscopy.
--- NOTE | 2022-09-25 08:51 | P.OP ---
Date of Procedure: 09/25/22 Preoperative Diagnosis: History of colon polyps Postoperative Diagnosis: Mild diverticulosis Procedure(s) Performed: Colonoscopy Anesthesia: MAC Surgeon: Anthony Quintana Pathology: none sent Condition: stable Disposition: PACU Description of Procedure: Patient's placed on the endoscopy table in the lateral position. He received IV sedation. Digital rectal exam was performed. This revealed external hemorrhoids. The flexible colonoscope was then placed patient anus and passed throughout the entire colon. The ileocecal valve was visually is. The cecum and ascending colon appeared normal. In the transverse colon was a few scattered diverticula. In the descending colon there was a few scattered diverticula. The patient a previous sigmoid resection. The colorectal anastomosis was visualized this appeared normal. Scope was brought back the rectum and this was normal. Scope withdrawn for patient.
[2022-09-25 09:06] VITALS: RESP 16
[2022-09-25 09:30] VITALS: BP 1505/86; PULSE 56
== END 2022-09-25 09:38 | disposition home or self-care (01) ==
LOC: ORWHC2ENDO 07:30
PROVIDERS: ATTEND Surgery
DX: Z12.11 Encounter for screening for malignant neoplasm of colon (principal); K57.30 Diverticulosis of large intestine without perforation or abscess without bleeding; K21.9 Gastro-esophageal reflux disease without esophagitis; Z86.010 Personal history of colon polyps; E78.5 Hyperlipidemia, unspecified; M19.90 Unspecified osteoarthritis, unspecified site; F17.200 Nicotine dependence, unspecified, uncomplicated; Z82.49 Family history of ischemic heart disease and other diseases of the circulatory system; Z79.82 Long term (current) use of aspirin; Z79.1 Long term (current) use of non-steroidal anti-inflammatories (NSAID); Z79.899 Other long term (current) drug therapy
CPT/HCPCS: G0105; J2704; J2001; 45378

== ENCOUNTER → 2022-12-11 | Outpatient (CLI) | payer MEDICARE, OTHER ==
[2022-12-11 08:08] VITALS: BP 133/78; PULSE 59; RESP 18; TEMP 98.1
--- NOTE | 2022-12-11 14:48 | P.PAINPG ---
PQRS Measure Charge Sheet Comment: A 67 yr old male w at side with a history of severe and chronic LBP x 2 mo secondary to lumbar DDD and spondylosis with facet arthropathy without myelopathy presents today for evaluation for LBP. Pain level is provoked at 6 /10 in intensity, constant, localized in the lumbar spine, sharp in character w shooting towards the L hip. Pain is provoked by sitting/ walking for periods of 30 min or more. Pain is alleviated with PT x 6 wks in February 2022, home exercise every morning, massage integrated w PT, massage from his for 90 min monthly, chiropractic treatments in the past then was instructed to stop, heat, ice, medications (Tyl, Baclofen), repositioning and rest. Interventional pain procedures completed include BL RFA L3-L5 (Jul 2022), L TFESI L3-L4 x1 (Feb 2022) Patient is currently on Tylenol , Baclofen , Mobic , Tylenol Arthritis Patient denies any side effects of the medication(s), denies excessive drowsiness or sleepiness, denies suicidal ideation and reports that the current pain medication is helping to control the pain and improve activities of daily living. Patient denies any motor or sensory deficits. Patient denies any fever or night sweats, denies any change in the bowel movements or urination. Physical Examination: -Constitutional: Cooperative. Not in acute distress . - Neurologic: Cranial nerve II to XII intact. No focal neurological deficits. - Psychatric: Alert & oriented x 3. Matching mood & appropriate affect. Judgment and insight intact. - Musculoskeletal: Cervical spine: Muscle bulk/ tone/ strength in the bilateral upper extremities normal Vertebral body tenderness to palpation over Spurling test positive Distraction test positive Facet loading test positive Thoracic spine Muscle bulk / tone/ strength in the bilateral paraspinal muscles normal Vertebral body tender to palpation over Facet loading test positive Lumbar spine: Motor bulk/ tone/ strength lower extremities , thigh and legs : 5/5 Deep tendon reflexes : Normal Knee Jerk. Normal Ankle Jerk . Vertebral body tenderness to palpation over L1 Lumbar Facet Loading Test positive Straight Leg Raise: positive at 30 degrees right side/ left side Gaenslen's Test positive Sacral spine : Severe tenderness over the Sacroiliac joint: right side / left side Range of motion: Flexion of the lumbar spine <60 degrees Range of motion: Extension of the lumbar spine <20 degrees Gaenslen's Test positive Elizabeth test: positive right side / left side Thigh Thrust Test Sacral Thrust Test Assessment and plan: Chronic LBP secondary to lumbar DDD, spondylosis with facet arthropathy without myelopathy Recommendation of SHIVA T12-L1. May need a series of injections, up to 4 within a 12 mo period, for opitmal pain relief. Risks, benefits of procedure discussed and pt verbalized understanding. Denies anticoagulant use or medical history of diabetes. All patient questions answered I have spent less than 30 minutes on patient care today. Dr Lincoln was available by phone for the evaluation of this patient. The time was used to review the medical records including relevant urine studies and Prescription history (MAPs), review of the available imaging, evaluation and examination of the patient, coordination of care with the medical staff and if applicable referring physicians, as well as creation of the medical record - Pain Location Left Hip Non-Pharmacological Interventions: Heat, Ice, Massage, Physical Therapy, Position/Reposition, Stretching Pharmacological Interventions: PRN Medication PQRS Narrative: Smoking Status Former smoker Hx Alcohol Use (MH) Yes Home Medications: Ambulatory Orders Ergocalciferol [Vitamin D2] 50,000 unit PO FR 09/02/17 Tamsulosin HCl [Flomax] 0.4 mg PO HS 09/02/17 Multivitamin/Iron/Folic Acid [Centrum Adults Tablet] 1 each PO DAILY 10/20/18 Acetaminophen [Tylenol Arthritis] 650 mg PO BID 09/04/20 Aspirin [Adult Low Dose Aspirin EC] 81 mg PO DAILY 09/04/20 Atorvastatin [Lipitor] 40 mg PO HS 09/04/20 Baclofen 10 mg PO QAM 09/04/20 Famotidine [Pepcid] 40 mg PO BID 09/04/20 Meloxicam 15 mg PO DAILY 09/04/20 OXcarbazepine [Trileptal] 300 mg PO QAM 09/04/20 Alendronate Sodium [Fosamax] 70 mg PO FR 02/19/22 Ibuprofen [Motrin] 400 mg PO Q6HR PRN 09/23/22 Controlled Substance Measures - Controlled Substance Measures Is patient prescribed a controlled substance at discharge?: No
== END ==
LOC: PNWHC3 07:10
PROVIDERS: ATTEND Specialist
DX: M47.816 Spondylosis without myelopathy or radiculopathy, lumbar region (principal); M51.36 Other intervertebral disc degeneration, lumbar region; G89.29 Other chronic pain; Z91.041 Radiographic dye allergy status; Z88.0 Allergy status to penicillin; Z87.891 Personal history of nicotine dependence
CPT/HCPCS: 99211

== ENCOUNTER 2023-02-17 08:02 | Day surgery (SDC) | payer MEDICARE, OTHER ==
[~2023-02-17 08:02] MED LIST changes: +LIDOCAINE 1% (10MG/ML) FOR IV START INTRADERMA PRN
[2023-02-17] MEDS ORDERED: LACTATED RINGERS 1,000 ML IV ONE (09:15)
[2023-02-17 09:20] VITALS: TEMP 97.4
[2023-02-17] MEDS ORDERED: fentaNYL (PF) 50 MCG/ML 2 ML AMP ONE (09:25)
[2023-02-17] MEDS ORDERED: methylPREDNISolone ACETATE 40 MG/ML 1 ML VIAL ONE (09:25)
[2023-02-17] MEDS ORDERED: MIDAZOLAM 2 MG/2 ML VIAL ONE (09:25)
[2023-02-17] MEDS ORDERED: IV FLUID CONTINUATION 1,000 ML IV ONE (09:40)
--- NOTE | 2023-02-17 09:40 | P.PCN ---
Date of Procedure: 02/17/23 Procedure(s) Performed: PREOPERATIVE DIAGNOSIS: 1-Lumbar radiculopathy . 2-lumbar degenerative disc disease. 3-lumbar spondylosis with lumbar facet arthropathy without myelopathy POSTOPERATIVE DIAGNOSIS: 1-lumbar radiculopathy. 2-lumbar degenerative disc disease. 3-lumbar spondylosis with facet arthropathy without myelopathy PROCEDURE 1. Transforaminal epidural steroid injection under fluoroscopic guidance at left L5-S1 level. (Fluoroscopy images stored on file in the radiology Department ) ANESTHESIA: Local with 1% lidocaine 3 ml , moderate sedation with intravenous Versed 2 mg and fentanyle 50 micrograms. Sedation start time :929 . Sedation. stop time : 935 . EBL: Minimal PROCEDURE INDICATION: The patient with low back pain and radiculopathy symptoms unresponsive to conservative treatment. PROCEDURE DESCRIPTION / TECHNIQUE: The patient was seen and identified in the preoperative area. Risks, benefits, complications, and alternatives were discussed with the patient. The patient agreed to proceed with the procedure and signed the consent. IV was started, and vital signs were stable. Patient was taken to the OR and time out was completed. The patient was placed in the prone position on procedure table and a pillow was placed under the abdomen to reduce lumbar lordosis. The lumbosacral area was prepped and draped in the usual sterile fashion. Critical pause was taken. Vital signs were closely monitored during the procedure. Conscious sedation was used during the procedure to decrease patient s anxiety. Using oblique fluoroscopy, the chin of the `Oswaldo dog at left L5-S1 level was identified, and the skin and deeper tissues just below was localized with 1% lidocaine. Subsequently, a 22-gauge 3.5-inch spinal needle was advanced under a tunneled view fluoroscopic guidance just underneath the chin of the `Oswaldo dog at the left L5-S1 Under lateral fluoroscopy, the needle was then advanced to the posterior border of the interforaminal space. After negative aspiration of CSF and blood and with no paresthesia, Subsequently, 3 mL of block solution containing 40 mg Depo-Medrol and 2 mL of 0.9% normal saline PF was injected. Needle was removed . At the end of the procedure, skin was cleansed, and bandages were applied. COMPLICATIONS:none note= Isovue was not injected because patient had ALLERGY to IVP dye. DISPOSITION / PLANS: The patient was placed in a supine position and transferred to the recovery area in a stable condition for observation. There was no evidence of lower extremity motor or sensory deficit after the procedure. Patient was discharged from the recovery room after meeting discharge criteria. Home discharge instructions were given to the patient by the staff. The patient was reexamined prior to discharge.
[2023-02-17 09:47] VITALS: RESP 15
[2023-02-17 10:05] VITALS: BP 111/65; PULSE 71
--- NOTE | 2023-02-17 10:06 | FL ---
Intraoperative/procedural fluoroscopic services were provided for left lumbar transforaminal epidural injection. Total fluoroscopy time is 2 seconds with a total of 1 submitted image to PACS. Total DAP [id number]. Please see the operative note for further details.
== END 2023-02-17 10:10 | disposition home or self-care (01) ==
LOC: ORPAIN 08:02
PROVIDERS: ATTEND Specialist
DX: M51.16 Intervertebral disc disorders with radiculopathy, lumbar region (principal); M47.26 Other spondylosis with radiculopathy, lumbar region; Z91.041 Radiographic dye allergy status
CPT/HCPCS: 64483; J2250; J1030; J3010

== ENCOUNTER → 2023-03-12 | Outpatient (CLI) | payer MEDICARE, OTHER ==
[2023-03-12 13:40] VITALS: BP 146/87; PULSE 90; RESP 18; TEMP 98.1
--- NOTE | 2023-03-12 14:14 | P.PAINPG ---
PQRS Measure Charge Sheet Comment: A 67 yr old male w at side with a history of severe and chronic LBP secondary to lumbar DDD and spondylosis with facet arthropathy without myelopathy presents today for evaluation s/p L TFESI L5-S1. Pt states he experienced 90 % pain relief x 3 wks s/p procedure. Pain level is provoked at 7 /10 in intensity, constant, localized in the lumbar spine, dull/ achy in character w/o shooting pain Pain is provoked by weight bearing activity for periods of 10 min or more. Pain is alleviated with massage therapy monthly, heat, ice, medications, topical, repositioning and rest. Interventional pain procedures completed include L TFESI L5-S1 Patient is currently on Mobic, BioFreeze Gel Patient denies any side effects of the medication(s), denies excessive drowsiness or sleepiness, denies suicidal ideation and reports that the current pain medication is helping to control the pain and improve activities of daily living. Patient denies any motor or sensory deficits. Patient denies any fever or night sweats, denies any change in the bowel movements or urination. Physical Examination: -Constitutional: Cooperative. Not in acute distress . - Neurologic: Cranial nerve II to XII intact. No focal neurological deficits. - Psychatric: Alert & oriented x 3. Matching mood & appropriate affect. Judgment and insight intact. - Musculoskeletal: Cervical spine: Muscle bulk/ tone/ strength in the bilateral upper extremities normal Vertebral body tenderness to palpation over Spurling test positive Distraction test positive Facet loading test positive TTP Thoracic spine Muscle bulk / tone/ strength in the bilateral paraspinal muscles normal Vertebral body tender to palpation over Facet loading test positive TTP Lumbar spine: Motor bulk/ tone/ strength lower extremities , thigh and legs : 5/5 Deep tendon reflexes : Normal Knee Jerk. Normal Ankle Jerk . Vertebral body tenderness to palpation over L5 Lumbar Facet Loading Test positive Straight Leg Raise: positive at 30 degrees right side/ left side Gaenslen's Test positive Sacral spine : Severe tenderness over the Sacroiliac joint: right side / left side Range of motion: Flexion of the lumbar spine <60 degrees Range of motion: Extension of the lumbar spine <20 degrees Gaenslen's Test positive right side / left side Elizabeth test: positive right side / left side Thigh Thrust Test positive right side / left side Sacral Thrust Test positive right side / left side Assessment and plan: Chronic LBP secondary to lumbar DDD, spondylosis with facet arthropathy w ithout myelopathy Recommendation of L TFESI L5-S1 #2. May need a series of injections for optimal pain relief. Risks, benefits of procedure discussed and patient verbalized understanding. Protocol for discontinuation/continuation of medications surrounding procedure discussed. All questions answered. I have spent less than 30 minutes on patient care today. Dr Lincoln was available by phone for the evaluation of this patient. The time was used to review the medical records including relevant urine studies and Prescription history (MAPs), review of the available imaging, evaluation and examination of the patient, coordination of care with the medical staff and if applicable referring physicians, as well as creation of the medical record PQRS Narrative: Smoking Status Former smoker Hx Alcohol Use (MH) Yes Home Medications: Ambulatory Orders Ergocalciferol [Vitamin D2] 50,000 unit PO FR 09/02/17 Tamsulosin HCl [Flomax] 0.4 mg PO HS 09/02/17 Multivitamin/Iron/Folic Acid [Centrum Adults Tablet] 1 each PO DAILY 10/20/18 Acetaminophen [Tylenol Arthritis] 650 mg PO BID 09/04/20 Atorvastatin [Lipitor] 40 mg PO HS 09/04/20 Baclofen 10 mg PO QAM 09/04/20 Famotidine [Pepcid] 40 mg PO BID 09/04/20 Meloxicam 15 mg PO DAILY 09/04/20 OXcarbazepine [Trileptal] 300 mg PO QAM 09/04/20 Alendronate Sodium [Fosamax] 70 mg PO FR 02/19/22 Ibuprofen [Motrin] 400 mg PO Q6HR PRN 09/23/22 Controlled Substance Measures - Controlled Substance Measures Is patient prescribed a controlled substance at discharge?: No
== END ==
LOC: PNWHC3 10:26
PROVIDERS: ATTEND Specialist
DX: M51.36 Other intervertebral disc degeneration, lumbar region (principal); M47.816 Spondylosis without myelopathy or radiculopathy, lumbar region; G89.29 Other chronic pain; Z87.891 Personal history of nicotine dependence; Z91.041 Radiographic dye allergy status; Z88.0 Allergy status to penicillin; Z88.8 Allergy status to other drugs, medicaments and biological substances
CPT/HCPCS: 99211

== ENCOUNTER 2023-04-07 06:04 | Day surgery (SDC) | payer MEDICARE, OTHER ==
[2023-04-03 10:10] VITALS: BMI 26.7
[2023-04-07] MEDS ORDERED: LACTATED RINGERS 1,000 ML IV ONE ×2 (07:05→07:35)
[2023-04-07 07:07] VITALS: TEMP 97.2
[2023-04-07] MEDS ORDERED: methylPREDNISolone ACETATE 80 MG/ML 1 ML VIAL ONE (07:21)
[2023-04-07] MEDS ORDERED: fentaNYL (PF) 50 MCG/ML 2 ML AMP ONE (07:21)
[2023-04-07] MEDS ORDERED: MIDAZOLAM 2 MG/2 ML VIAL ONE (07:21)
--- NOTE | 2023-04-07 07:33 | P.PCN ---
Date of Procedure: 04/07/23 Procedure(s) Performed: PREOPERATIVE DIAGNOSIS: 1-Lumbar radiculopathy . 2-lumbar degenerative disc disease. 3-lumbar spondylosis with lumbar facet arthropathy without myelopathy POSTOPERATIVE DIAGNOSIS: 1-lumbar radiculopathy. 2-lumbar degenerative disc disease. 3-lumbar spondylosis with facet arthropathy without myelopathy PROCEDURE 1. Transforaminal epidural steroid injection under fluoroscopic guidance at left L5-S1 level. (Fluoroscopy images stored on file in the radiology Department ) ANESTHESIA: Local with 1% lidocaine 3 ml , moderate sedation with intravenous Versed 2 mg and fentanyle 50 micrograms. Sedation start time :723 . Sedation. stop time : 729 . EBL: Minimal PROCEDURE INDICATION: The patient with low back pain and radiculopathy symptoms unresponsive to conservative treatment. PROCEDURE DESCRIPTION / TECHNIQUE: The patient was seen and identified in the preoperative area. Risks, benefits, complications, and alternatives were discussed with the patient. The patient agreed to proceed with the procedure and signed the consent. IV was started, and vital signs were stable. Patient was taken to the OR and time out was completed. The patient was placed in the prone position on procedure table and a pillow was placed under the abdomen to reduce lumbar lordosis. The lumbosacral area was prepped and draped in the usual sterile fashion. Critical pause was taken. Vital signs were closely monitored during the procedure. Conscious sedation was used during the procedure to decrease patient s anxiety. Using oblique fluoroscopy, the chin of the `Oswaldo dog at left L5-S1 level was identified, and the skin and deeper tissues just below was localized with 1% lidocaine. Subsequently, a 22-gauge 3.5-inch spinal needle was advanced under a tunneled view fluoroscopic guidance just underneath the chin of the `Oswaldo dog at the left L5-S1 Under lateral fluoroscopy, the needle was then advanced to the posterior border of the interforaminal space. After negative aspiration of CSF and blood and with no paresthesia, Subsequently, 3 mL of block solution containing 60 mg Depo-Medrol and 2 mL of 0.9% normal saline PF was injected. Needle was removed . At the end of the procedure, skin was cleansed, and bandages were applied. COMPLICATIONS:none note= Isovue was not injected because patient had ALLERGY to IVP dye. DISPOSITION / PLANS: The patient was placed in a supine position and transferred to the recovery area in a stable condition for observation. There was no evidence of lower extremity motor or sensory deficit after the procedure. Patient was discharged from the recovery room after meeting discharge criteria. Home discharge instructions were given to the patient by the staff. The patient was reexamined prior to discharge.
[2023-04-07 08:13] VITALS: BP 126/77; PULSE 65; RESP 17
--- NOTE | 2023-04-07 09:49 | FL ---
Intraoperative/procedural fluoroscopic services were provided. Total fluoroscopy time is 1.3 seconds with a total of 1 submitted images to PACS. Please see the operative/procedural note for further deta ils. DAP: [id number]
== END 2023-04-07 08:20 | disposition home or self-care (01) ==
LOC: ORPAIN 06:04
PROVIDERS: ATTEND Specialist
DX: M51.16 Intervertebral disc disorders with radiculopathy, lumbar region (principal); M47.26 Other spondylosis with radiculopathy, lumbar region; Z91.041 Radiographic dye allergy status
CPT/HCPCS: 64483; J2250; J1040; J3010

== ENCOUNTER 2023-04-19 21:25 | Emergency (ER) | payer MEDICARE, OTHER ==
[2023-04-19] MEDS ORDERED: LIDOCAINE 1% INJ 10MG/ML (30 ML VIAL-PF) SQ ONE (22:02)
[2023-04-19 22:24] VITALS: RESP 18; TEMP 98.6
--- NOTE | 2023-04-19 23:04 | ED ---
General Adult HPI - General Chief complaint: Skin/Abscess/Foreign Body Stated complaint: growth on left upper leg and fever Time Seen by Provider: 04/19/23 21:42 Source: patient, RN notes reviewed Mode of arrival: ambulatory Limitations: no limitations - History of Present Illness Initial comments: 67-year-old male presents to the emergency department chief complaint of abscess on his buttock. He states that he first noticed it on and it has been progressively getting bigger. Patient states that he has had this in the past in the same location and he had it drained by his primary care provider. He states this was about 4 months ago. He reports that he was on antibiotics at the time and this was followed by resolution of symptoms. He states that it is only mildly sore to the touch at this time. Denies history of diabetes. Denies nausea, vomiting, diarrhea. - Related Data Home Medications Medication Instructions Recorded Confirmed Ergocalciferol [Vitamin D2] 50,000 unit PO FR 09/02/17 04/07/23 Tamsulosin HCl [Flomax] 0.4 mg PO HS 09/02/17 04/07/23 Multivitamin/Iron/Folic Acid 1 each PO DAILY 10/20/18 04/07/23 [Centrum Adults Tablet] Acetaminophen [Tylenol Arthritis] 650 mg PO BID 09/04/20 04/07/23 Atorvastatin [Lipitor] 40 mg PO HS 09/04/20 04/07/23 Baclofen 10 mg PO QAM 09/04/20 04/07/23 Famotidine [Pepcid] 40 mg PO BID 09/04/20 04/07/23 Meloxicam 15 mg PO DAILY 09/04/20 04/07/23 OXcarbazepine [Trileptal] 300 mg PO QAM 09/04/20 04/07/23 Alendronate Sodium [Fosamax] 70 mg PO FR 02/19/22 04/07/23 Ibuprofen [Motrin] 400 mg PO Q6HR PRN 09/23/22 04/07/23 Previous Rx's Medication Instructions Recorded Cephalexin [Keflex] 500 mg PO Q6HR #40 cap 04/19/23 Sulfamethox-Tmp 800-160Mg [Bactrim 1 each PO Q12HR #20 tab 04/19/23 Ds] Allergies Allergy/AdvReac Type Severity Reaction Status Date / Time Iodinated Contrast Media Allergy Nausea & Verified 04/07/23 06:50 [Iodinated Contrast- Oral Vomiting and IV Dye] Penicillins Allergy Unknown Verified 04/07/23 06:50 Childhood IV DYE AdvReac Nausea & Uncoded 04/07/23 06:50 Vomiting Review of Systems ROS Statement: Those systems with pertinent positive or pertinent negative responses have been documented in the HPI. ROS Other: All systems not noted in ROS Statement are negative. Past Medical History Past Medical History: GERD/Reflux, Hyperlipidemia, Osteoarthritis (OA), Prostate Disorder Additional Past Medical History / Comment(s): Diverticulitis, hx ruptured colon November 21, 2015. 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 History of Any Multi-Drug Resistant Organisms: None Reported Past Surgical History: Bowel Resection, Orthopedic Surgery, Tonsillectomy Additional Past Surgical History / Comment(s): Colonosocpy, left shoulder surgery, ORIF right elbow, colostomy, with later reversal. Past Anesthesia/Blood Transfusion Reactions: No Reported Reaction Past Psychological History: No Psychological Hx Reported Smoking Status: Current some day smoker Past Alcohol Use History: Occasional, Rare Past Drug Use History: None Reported - Past Family History Mother Family Medical History: CVA/TIA General Exam Limitations: no limitations General appearance: alert, in no apparent distress Head exam: Present: atraumatic, normocephalic, normal inspection Eye exam: Present: normal appearance, PERRL, EOMI. Absent: scleral icterus, conjunctival injection, periorbital swelling ENT exam: Present: normal exam, mucous membranes moist Neck exam: Present: normal inspection. Absent: tenderness, meningismus, lymphadenopathy Respiratory exam: Present: normal lung sounds bilaterally. Absent: respiratory distress, wheezes, rales, rhonchi, stridor Cardiovascular Exam: Present: regular rate, normal rhythm, normal heart sounds. Absent: systolic murmur, diastolic murmur, rubs, gallop, clicks GI/Abdominal exam: Present: soft, normal bowel sounds. Absent: distended, tenderness, guarding, rebound, rigid Extremities exam: Present: normal inspection, full ROM, normal capillary refill. Absent: tenderness, pedal edema, joint swelling, calf tenderness Back exam: Present: normal inspection Neurological exam: Present: alert, oriented X3 Psychiatric exam: Present: normal affect, normal mood Skin exam: Present: warm, dry, intact, normal color, other (3cm abscess on left sided gluteal cleft) Course Vital Signs 04/19/23 04/19/23 21:36 22:19 Temperature 98.4 F 98.6 F Pulse Rate 74 70 Respiratory 16 18 Rate Blood Pressure 148/75 139/80 O2 Sat by Pulse 96 97 Oximetry Procedures - Incision & Drainage Consent Obtained: verbal consent Site: buttock Size (cm): 3 Anesthetic Used: lidocaine 1% I&D Cleaning Method: Alcohol Wipe, Betadine Sterile Field Used?: No Scalpel Used: #11 I&D Drainage Obtained: Pus Packing: Iodoform Culture Obtained?: Yes Patient Tolerated Procedure: well Medical Decision Making - Medical Decision Making Was pt. sent in by a medical professional or institution ([facility], [facility], urgent care, hospital, or fdc...) When possible be specific @ -No Did you speak to anyone other than the patient for history (EMS, parent, family, police, friend...)? What history was obtained from this source @ -No Did you review nursing and triage notes (agree or disagree)? Why? @ -I reviewed and agree with nursing and triage notes Were old charts reviewed (outside hosp., previous admission, EMS record, old EKG, old radiological studies, urgent care reports/EKG's, fdc records)? Report findings @ -No old charts were reviewed Differential Diagnosis (chest pain, altered mental status, abdominal pain women, abdominal pain men, vaginal bleeding, weakness, fever, dyspnea, syncope, headache, dizziness, GI bleed, back pain, seizure, CVA, palpatations, mental health, musculoskeletal)? @ -abscess, cyst, pilonidal cyst, this list is not all inclusive EKG interpreted by me (3pts min.). @ -none X-rays interpreted by me (1pt min.). @ -None done CT interpreted by me (1pt min.). @ -None done U/S interpreted by me (1pt. min.). @ -None done What testing was considered but not performed or refused? (CT, X-rays, U/S, labs)? Why? @ -None What meds were considered but not given or refused? Why? @ -None Did you discuss the management of the patient with other professionals (professionals i.e. Dr., PA, [facility], lab, RT, psych nurse, social worker school, barrel washer machine, teacher, flight radio officer, ed case manager)? Give summary @ -No Was smoking cessation discussed for >3mins.? @ -No Was critical care preformed (if so, how long)? @ -No Were there social determinants of health that impacted care today? How? (Homelessness, low income, unemployed, alcoholism, drug addiction, transportation, low edu. Level, literacy, decrease access to med. care, half-way, rehab)? @ -No Was there de-escalation of care discussed even if they declined (Discuss DNR or withdrawal of care, Hospice)? DNR status @ -No What co-morbidities impacted this encounter? (DM, HTN, Smoking, COPD, CAD, Cancer, CVA, ARF, Chemo, Hep., AIDS, mental health diagnosis, sleep apnea, morbid obesity)? @ -None Was patient admitted / discharged? Hospital course, mention meds given and route, prescriptions, significant lab abnormalities, going to OR and other pertinent info. @ -Discharged. Patient presented to the emergency department with chief complaint of abscess on his buttocks. He states that he has had one in the past in the same location that was drained and packed by his primary care provider. Patient was given antibiotics at that time. He states that he had resolution of his symptoms at that time but started noticing a recurrence on . On examination, the patient is well appearing, afebrile, The abscess is on his lateral gluteal cleft. The area was injected with local anesthesia and a small incision was made and drainage was obtained. Patient reported relief following this. Patient was given strict return precautions and advised to take antibiotics to completion. Patient was given information for follow up with surgery. Patient discharged in stable condition. Case discussed with my attending, Dr. Moya. Undiagnosed new problem with uncertain prognosis? @ -No Drug Therapy requiring intensive monitoring for toxicity (Heparin, Nitro, Insulin, Cardizem)? @ -No Were any procedures done? @ -No Diagnosis/symptom? @ -gluteal abscess Acute, or Chronic, or Acute on Chronic? @ -Acute Uncomplicated (without systemic symptoms) or Complicated (systemic symptoms)? @ -Uncomplicated Side effects of treatment? @ -No Exacerbation, Progression, or Severe Exacerbation? @ -No Poses a threat to life or bodily function? How? (Chest pain, USA, MS, pneumonia, PE, COPD, DKA, ARF, appy, cholecystitis, CVA, Diverticulitis, Homicidal, Suicidal, threat to staff... and all critical care pts) @ -No Disposition Clinical Impression: Gluteal abscess Disposition: HOME SELF-CARE Condition: Stable Instructions (If sedation given, give patient instructions): Abscess Incision and Drainage (ED) Additional Instructions: Remove the packing small amount daily around 1/4 inch. Please follow up with your primary care provider early this week. Return to the emergency department for new or worsening symptoms. Prescriptions: Sulfamethox-Tmp 800-160Mg [Bactrim Ds] 1 each PO Q12HR #20 tab Cephalexin [Keflex] 500 mg PO Q6HR #40 cap Is patient prescribed a controlled substance at d/c from ED?: No Referrals: Fiona Fletcher DO [Primary Care Provider] - 1-2 days Dunia Peters MD [STAFF PHYSICIAN] - 1-2 days Time of Disposition: 23:01
[2023-04-19] MEDS ORDERED: CEPHALEXIN 500 MG CAP PO STA (23:14)
[2023-04-19] MEDS ORDERED: SULFAMETHOX-TMP 800-160MG 1 EACH TAB PO STA (23:14)
[2023-04-19 23:41] VITALS: BP 134/83; PULSE 68
== END 2023-04-19 23:41 | disposition home or self-care (01) ==
LOC: EC 21:25
DX: L02.31 Cutaneous abscess of buttock (principal); B96.29 Other Escherichia coli [E. coli] as the cause of diseases classified elsewhere; E78.5 Hyperlipidemia, unspecified; K21.9 Gastro-esophageal reflux disease without esophagitis; M19.90 Unspecified osteoarthritis, unspecified site; F17.200 Nicotine dependence, unspecified, uncomplicated; Z88.0 Allergy status to penicillin; Z91.041 Radiographic dye allergy status; Z79.899 Other long term (current) drug therapy
CPT/HCPCS: 87070; 87205; 87077; 87186; 99283; 10060; J2001

== ENCOUNTER → 2023-04-30 | Outpatient (CLI) | payer MEDICARE, OTHER ==
[2023-04-30 10:19] VITALS: BP 133/81; PULSE 59; RESP 18; TEMP 97.8
--- NOTE | 2023-05-06 07:32 | P.PAINPG ---
PQRS Measure Charge Sheet Comment: A 67 yr old male w at side with a history of severe and chronic LBP secondary to lumbar DDD and spondylosis with facet arthropathy without myelopathy presents today for evaluation s/p L TFEI L5-S1. Pt states he experienced 80% pain relief x 3 wks s/p procedure. Pain level is provoked at 7 /10 in intensity, constant, localized in the lumbar spine, dull in character w shooting towards the L hip and L foot. Pain is provoked by over activity. Pain is alleviated with PT x 6 wks in 2020, heat, ice, topical, home physician guided stretching regimen since 2020, repositioning and rest. Interventional pain procedures completed include L TFESI L5-S1 Patient is currently on Voltaren gel Patient denies any side effects of the medication(s), denies excessive drowsiness or sleepiness, denies suicidal ideation and reports that the current pain medication is helping to control the pain and improve activities of daily living. Patient denies any motor or sensory deficits. Patient denies any fever or night sweats, denies any change in the bowel movements or urination. Physical Examination: -Constitutional: Cooperative. Not in acute distress . - Neurologic: Cranial nerve II to XII intact. No focal neurological deficits. - Psychatric: Alert & oriented x 3. Matching mood & appropriate affect. Judgment and insight intact. - Musculoskeletal: Cervical spine: Muscle bulk/ tone/ strength in the bilateral upper extremities normal Vertebral body tenderness to palpation over Spurling test positive Distraction test positive Facet loading test positive TTP Thoracic spine Muscle bulk / tone/ strength in the bilateral paraspinal muscles normal Vertebral body tender to palpation over Facet loading test positive TTP Lumbar spine: Motor bulk/ tone/ strength lower extremities , thigh and legs : 5/5 Deep tendon reflexes : Normal Knee Jerk. Normal Ankle Jerk . Vertebral body tenderness to palpation over Aponte Test positive Lumbar Facet Loading Test positive Straight Leg Raise: positive at 30 degrees right side/ left side Gaenslen's Test positive Sacral spine : Severe tenderness over the Sacroiliac joint: right side / left side Range of motion: Flexion of the lumbar spine <60 degrees Range of motion: Extension of the lumbar spine <20 degrees Gaenslen's Test positive right side / left side Elizabeth test: positive right side / left side Thigh Thrust Test positive right side / left side Sacral Thrust Test positive right side / left side Assessment and plan: Chronic LBP secondary to lumbar DDD, spondylosis with facet arthropathy without myelopathy, L Sacroiliitis Recommendation of L SI injection. Risks, benefits of procedure discussed and pt verbalized understanding. Admits to anticoagulant use or medical history of diabetes. Protocol for discontinuation/ continuation of medications beni procedure discussed. Minimal anesthesia provided, if clinically indicated, consisting of Versed and Fentanyl. All questions answered. I have spent less than 30 minutes on patient care today. Dr Lincoln was available by phone for the evaluation of this patient. The time was used to review the medical records including relevant urine studies and Prescription history (MAPs), review of the available imaging, evaluation and examination of the patient, coordination of care with the medical staff and if applicable referring physicians, as well as creation of the medical record PQRS Narrative: Smoking Status Former smoker Hx Alcohol Use (MH) Yes Home Medications: Ambulatory Orders Ergocalciferol [Vitamin D2] 50,000 unit PO FR 09/02/17 Tamsulosin HCl [Flomax] 0.4 mg PO HS 09/02/17 Multivitamin/Iron/Folic Acid [Centrum Adults Tablet] 1 each PO DAILY 10/20/18 Acetaminophen [Tylenol Arthritis] 650 mg PO BID 09/04/20 Atorvastatin [Lipitor] 40 mg PO HS 09/04/20 Baclofen 10 mg PO QAM 09/04/20 Famotidine [Pepcid] 40 mg PO BID 09/04/20 Meloxicam 15 mg PO DAILY 09/04/20 OXcarbazepine [Trileptal] 300 mg PO QAM 09/04/20 Alendronate Sodium [Fosamax] 70 mg PO FR 02/19/22 Ibuprofen [Motrin] 400 mg PO Q6HR PRN 09/23/22 Cephalexin [Keflex] 500 mg PO Q6HR #40 cap 04/19/23 Sulfamethox-Tmp 800-160Mg [Bactrim Ds] 1 each PO Q12HR #20 tab 04/19/23 Controlled Substance Measures - Controlled Substance Measures Is patient prescribed a controlled substance at discharge?: No
== END ==
LOC: PNWHC3 08:09
PROVIDERS: ATTEND Specialist
DX: M51.36 Other intervertebral disc degeneration, lumbar region (principal); M47.816 Spondylosis without myelopathy or radiculopathy, lumbar region; M46.1 Sacroiliitis, not elsewhere classified; G89.29 Other chronic pain; Z87.891 Personal history of nicotine dependence; Z88.0 Allergy status to penicillin; Z91.041 Radiographic dye allergy status
CPT/HCPCS: 99211

== ENCOUNTER → 2023-05-28 | Day surgery (SDC) | payer MEDICARE, OTHER ==
[2023-05-25 10:51] VITALS: BMI 26.6
[~2023-05-28] MED LIST changes: -LIDOCAINE 1% (10MG/ML) FOR IV START INTRADERMA PRN; +ROPIVACAINE 5 MG/ML 20 ML AMPULE ONE; +methylPREDNISolone ACETATE 40 MG/ML 1 ML VIAL ONE
[2023-05-28 06:34] VITALS: TEMP 97.2
--- NOTE | 2023-05-28 08:06 | P.PCN ---
Date of Procedure: 05/28/23 Procedure(s) Performed: Procedure= Left sacroiliac joints steroid injection under fluoroscopy guidance (fluoroscopy image stored on file in the radiology Department ) Preoperative diagnosis= 1- left sacroiliitis 2-lumbar degenerative disc disease 3-lumbar facet arthropathy Postoperative diagnosis=Same as preop Diagnosis . Complication = none Condition= stable Anesthesia= local anesthesia with ropivacaine 0.5% 3 ml only Indication for the procedure= patient complaining of low back pain , examination was positive for severe tenderness over the left sacroiliac joints bilaterally and patient diagnosed with sacroiliitis, for this reason he was good candidate for sacroiliac joint steroid injection. Description of the procedure= procedure risk and benefits discussed with the patient, including but not limited, risk of infection and bleeding, and ALLERGIC reaction to the medication and not complete pain relief and patient agreed with the preceding patient taken to the operating room, placed in prone position or standard monitors applied to the patient then after induction of anesthesia back prepped with chlorhexidine 3 times , Then the left sacroiliac joint steroid injection done under strict sterile technique local infiltration of the skin and subcu interstitial at the location of the left sacroiliac joint then a 22-gauge Quincke Needle advanced slowly under fluoroscopy time placed in the left sacroiliac joint, needle placement confirmed with AP and oblique and lateral view then after appropriate needle placement confirmed, with the AP and oblique and lateral then after negative aspiration 0.5% Ropivacaine 3 mL and 40 mg of Depo-Medrol injected in the left sacroiliac joint after negative aspiration patient tolerated the procedure well that any complications and she will follow up in clinic 3 weeks note= Isovue was not injected because patient had ALLERGY to IVP dye
[2023-05-28 08:08] VITALS: RESP 18
--- NOTE | 2023-05-28 08:26 | FL ---
Fluoroscopy History: SI Inj 0.00905 DAP, 5 SEC FL TIME. LEFT SI INJECTION WITH DR. COOPER.
[2023-05-28 08:38] VITALS: BP 118/76; PULSE 59
== END | disposition home or self-care (01) ==
LOC: ORPAIN 05:44
PROVIDERS: ATTEND Specialist
DX: M46.1 Sacroiliitis, not elsewhere classified (principal); M51.36 Other intervertebral disc degeneration, lumbar region; M47.816 Spondylosis without myelopathy or radiculopathy, lumbar region; Z88.0 Allergy status to penicillin; Z91.041 Radiographic dye allergy status
CPT/HCPCS: J1030; J2795; G0260; 27096

== ENCOUNTER → 2023-06-22 | Outpatient (CLI) | payer MEDICARE, OTHER ==
[2023-06-22 09:02] VITALS: BP 149/85; PULSE 59; RESP 15; TEMP 97.7
--- NOTE | 2023-06-22 14:31 | P.PAINPG ---
PQRS Measure Charge Sheet Comment: A 67 yr old male w at side with a history of severe and chronic LBP secondary to lumbar DDD and spondylosis with facet arthropathy without myelopathy presents today for evaluation s/p L SI injection. Pt states he experienced 100% pain relief x 1 day s/p procedure. Pain level is provoked at 9 /10 in intensity, constant, localized in the lumbar spine, dull in character w shooting towards the BLEs. Pain is provoked by over activity. Pain is alleviated with PT x 6 wks in 2020, heat, ice, topical, home physician guided stretching regimen since 2020, repositioning and rest. Oswestry axial pain score o f 27. Interventional pain procedures completed include L TFESI L5-S1, SHIVA L5-S1 & T12- L1, L SI injection x1 Patient is currently on Voltaren gel Patient denies any side effects of the medication(s), denies excessive drowsiness or sleepiness, denies suicidal ideation and reports that the current pain medication is helping to control the pain and improve activities of daily living. Patient denies any motor or sensory deficits. Patient denies any fever or night sweats, denies any change in the bowel movements or urination. Physical Examination: -Constitutional: Cooperative. Not in acute distress . - Neurologic: Cranial nerve II to XII intact. No focal neurological deficits. - Psychatric: Alert & oriented x 3. Matching mood & appropriate affect. Judgment and insight intact. - Musculoskeletal: Cervical spine: Muscle bulk/ tone/ strength in the bilateral upper extremities normal Vertebral body tenderness to palpation over Spurling test positive Distraction test positive Facet loading test positive TTP Thoracic spine Muscle bulk / tone/ strength in the bilateral paraspinal muscles normal Vertebral body tender to palpation over Facet loading test positive TTP Lumbar spine: Motor bulk/ tone/ strength lower extremities , thigh and legs : 5/5 Deep tendon reflexes : Normal Knee Jerk. Normal Ankle Jerk . Vertebral body tenderness to palpation over L2 Aponte Test positive Lumbar Facet Loading Test positive Straight Leg Raise: positive at 30 degrees right side/ left side Gaenslen's Test positive Sacral spine : Severe tenderness over the Sacroiliac joint: right side / left side Range of motion: Flexion of the lumbar spine <60 degrees Range of motion: Extension of the lumbar spine <20 degrees Gaenslen's Test positive right side / left side Elizabeth test: positive right side / left side Thigh Thrust Test positive right side / left side Sacral Thrust Test positive right side / left side Assessment and plan: Chronic LBP secondary to lumbar DDD, spondylosis with facet arthropathy without myelopathy, L Sacroiliitis Recommendation of SHIVA L2-L3. May need a series of injections for optimal pain relief. Risks, benefits of procedure discussed and pt verbalized understanding. Admits to anticoagulant use or medical history of diabetes. Protocol for discontinuation/ continuation of medications beni procedure discussed. Minimal anesthesia provided, if clinically indicated, consisting of Versed and Fentanyl. All questions answered. I have spent less than 30 minutes on patient care today. Dr Lincoln was available by phone for the evaluation of this patient. The time was used to review the medical records including relevant urine studies and Prescription history (MAPs), review of the available imaging, evaluation and examination of the patient, coordination of care with the medical staff and if applicable referring physicians, as well as creation of the medical record PQRS Narrative: Smoking Status Former smoker Hx Alcohol Use (MH) Yes Home Medications: Ambulatory Orders Ergocalciferol [Vitamin D2] 50,000 unit PO FR 09/02/17 Tamsulosin HCl [Flomax] 0.4 mg PO HS 09/02/17 Multivitamin/Iron/Folic Acid [Centrum Adults Tablet] 1 each PO DAILY 10/20/18 Acetaminophen [Tylenol Arthritis] 650 mg PO BID 09/04/20 Atorvastatin [Lipitor] 40 mg PO HS 09/04/20 Baclofen 10 mg PO QAM 09/04/20 Famotidine [Pepcid] 40 mg PO BID 09/04/20 Meloxicam 15 mg PO DAILY 09/04/20 OXcarbazepine [Trileptal] 300 mg PO QAM 09/04/20 Alendronate Sodium [Fosamax] 70 mg PO FR 02/19/22 Ibuprofen [Motrin] 400 mg PO Q6HR PRN 09/23/22 ALPRAZolam [Alprazolam] 0.5 tab PO DIRECTED PRN 05/25/23 Controlled Substance Measures - Controlled Substance Measures Is patient prescribed a controlled substance at discharge?: No
== END ==
LOC: PNWHC3 08:34
PROVIDERS: ATTEND Specialist
DX: M51.36 Other intervertebral disc degeneration, lumbar region (principal); M47.816 Spondylosis without myelopathy or radiculopathy, lumbar region; G89.29 Other chronic pain; M46.1 Sacroiliitis, not elsewhere classified; Z87.891 Personal history of nicotine dependence; Z91.041 Radiographic dye allergy status; Z88.0 Allergy status to penicillin
CPT/HCPCS: 99211

== ENCOUNTER → 2023-08-04 | Outpatient (CLI) | payer MEDICARE, OTHER ==
[2023-08-04 12:47] LABS: African American GFR (CKD) >90 (>60 ml/min/1.73 sqM); Blood Urea Nitrogen 24 mg/dL (9-20); Non-African American GFR(CKD) >90 (>60 ml/min/1.73 sqM)
--- NOTE | 2023-08-04 13:24 | CT ---
EXAMINATION TYPE: CT abdomen wo/w con DATE OF EXAM: 08/04/2023 COMPARISON: 09/25/2020 HISTORY: Drs order, pt unsure why scan was ordered, possible adrenal gland tumor. CT DLP: 1413 mGycm Automated exposure control for dose reduction was used. TECHNIQUE: Helical acquisition of images was performed from the lung bases through the top of iliac crest to include entire abdomen. CONTRAST: Performed with Oral Contrast and without and with IV Contrast, patient injected with 80ml mL of Isovu e 300. FINDINGS: Lung bases are clear. The gallbladder is normal and there is no biliary ductal dilatation. There is no focal mass or organomegaly involving the liver, pancreas or spleen. There is a 2 cm well-circumscribed right adrenal mass consistent with a adenoma which is stable rachid red to previous. There is a tiny stable rounded mass in the left adrenal most likely representing an adenoma. There are no solid renal masses or hydronephrosis. Caliber of the abdominal aorta is normal. The bowel loops are normal in caliber and there is no dilatation or obstruction. No inflammatory erickson ges identified in the mesentery. There is no free intraperitoneal air or fluid. The osseous structures are intact.. IMPRESSION: Stable bilateral adrenal masses right greater than left. The findings are most consistent with benign adenomas. No new abnormalities are seen.
== END | disposition home or self-care (01) ==
LOC: RADCTMAIN 11:27
PROVIDERS: ATTEND Family Medicine
DX: D35.01 Benign neoplasm of right adrenal gland (principal); E27.9 Disorder of adrenal gland, unspecified
CPT/HCPCS: 82565; 84520; 74170; 36415; Q9967

== ENCOUNTER → 2023-08-06 | Outpatient (CLI) | payer MEDICARE, OTHER ==
--- NOTE | 2023-08-06 13:15 | CTL ---
EXAMINATION TYPE: CT Low Dose Lung DATE OF EXAM ORDERED: 08/06/2023 HISTORY: . Lung cancer screening CT DLP: 80.[address] CTDI: 2.2 mGy Automated exposure control for dose reduction was used. COMPARISON: 09/10/2020 TECHNIQUE: Low dose computed tomography scan was performed through the chest at 1 mm thick sections a nd reconstructed images in multiple planes at 1 mm and [address] DIAGNOSTIC QUALITY: Satisfactory FINDINGS: LUNG NODULES: None. LUNGS: COPD: Severity: There is mild upper lobe predominant centrilobular emphysema. There are no significan t pulmonary nodules. Fibrosis: Severity: None Lymph nodes: None. Other findings: RIGHT PLEURAL SPACE: Effusion: None Calcification: None Thickening: None Pneumothorax: None LEFT PLEURAL SPACE: Effusion: None Calcification: None Thickening: None Pneumothorax: None HEART: Heart Size: Normal Coronary Calcification: Mild diffuse coronary artery calcic effusion is seen. There is mild vascular calcification also seen in the aortic arch. No evidence of aneurysmal dilation. Pericardial Effusion: None OTHER FINDINGS: Upper abdomen: Right adrenal nodule is unchanged and most likely benign given its long-term stability . Bony thorax: None Supraclavicular region: None Other: None IMPRESSION: 1. Negative lung cancer screening examination for significant pulmonary nodules. 2. Mild emphysema. 3. Mild coronary artery calcifications. CT LUNG RAD AND CT CHEST RECOMMENDATION: Lung-Rad 1 Negative: Continue annual screening with LDCT in 12 months. S Modifier (other clinically significant findings): None.
== END | disposition home or self-care (01) ==
LOC: RADCTMAIN 12:29
PROVIDERS: ATTEND Family Medicine
DX: Z12.2 Encounter for screening for malignant neoplasm of respiratory organs (principal); J43.2 Centrilobular emphysema; I25.10 Atherosclerotic heart disease of native coronary artery without angina pectoris; F17.210 Nicotine dependence, cigarettes, uncomplicated
CPT/HCPCS: 71271

== ENCOUNTER → 2023-08-19 | Outpatient (CLI) | payer MEDICARE, OTHER ==
[2023-08-19 08:47] VITALS: BP 136/83; PULSE 62; RESP 16; TEMP 97.9
--- NOTE | 2023-08-19 14:40 | P.PAINPG ---
PQRS Measure Charge Sheet Comment: A 67 yr old male w at side with a history of severe and chronic LBP secondary to lumbar DDD and spondylosis with facet arthropathy without myelopathy presents today for evaluation s/p SHIVA L2-L3. Pt states he experienced 90% pain relief x 3 wks s/p procedure. Pain level is provoked at 2 /10 in intensity, constant, localized in the lumbar spine, dull in character w shooting towards the BLEs. Pain is provoked by over activity. Pain is alleviated with PT x 6 wks in 2020, heat, ice, topical, home physician guided stretching regimen since 2020, repositioning and rest. Oswestry axial pain score of 22. Followed up w: Reid Cordoba MD, Neurosurgeon [id number] [place] Interventional pain procedures completed include L TFESI L5-S1, SHIVA L5-S, T12- L1, L2-L3 x1, L SI injection x1 Patient is currently on Voltaren gel Patient denies any side effects of the medication(s), denies excessive drowsiness or sleepiness, denies suicidal ideation and reports that the current pain medication is helping to control the pain and improve activities of daily living. Patient denies any motor or sensory deficits. Patient denies any fever or night sweats, denies any change in the bowel movements or urination. Physical Examination: -Constitutional: Cooperative. Not in acute distress . - Neurologic: Cranial nerve II to XII intact. No focal neurological deficits. - Psychatric: Alert & oriented x 3. Matching mood & appropriate affect. Judgment and insight intact. - Musculoskeletal: Cervical spine: Muscle bulk/ tone/ strength in the bilateral upper extremities normal Vertebral body tenderness to palpation over Spurling test positive Distraction test positive Facet loading test positive TTP Thoracic spine Muscle bulk / tone/ strength in the bilateral paraspinal muscles normal Vertebral body tender to palpation over Facet loading test positive TTP Lumbar spine: Motor bulk/ tone/ strength lower extremities , thigh and legs : 5/5 Deep tendon reflexes : Normal Knee Jerk. Normal Ankle Jerk . Vertebral body tenderness to palpation L2 Aponte Test positive Lumbar Facet Loading Test positive Straight Leg Raise: positive at 30 degrees right side/ left side Gaenslen's Test positive Sacral spine : Severe tenderness over the Sacroiliac joint: right side / left side Range of motion: Flexion of the lumbar spine <60 degrees Range of motion: Extension of the lumbar spine <20 degrees Gaenslen's Test positive right side / left side Elizabeth test: positive right side / left side Thigh Thrust Test positive right side / left side Sacral Thrust Test positive right side / left side Assessment and plan: Chronic LBP secondary to lumbar DDD, spondylosis with facet arthropathy without myelopathy, L Sacroiliitis Recommendation of SHIVA L2-L3. May need a series of injections for optimal pain relief. Risks, benefits of procedure discussed and patient verbalized u nderstanding. Protocol for discontinuation/continuation of medications chronic procedure discussed. All questions answered. I have spent less than 30 minutes on patient care today. Dr Lincoln was a vailable by phone for the evaluation of this patient. The time was used to review the medical records including relevant urine studies and Prescription history (MAPs), review of the available imaging, evaluation and examination of the patient, coordination of care with the medical staff and if applicable referring physicians, as well as creation of the medical record PQRS Narrative: Smoking Status Former smoker Hx Alcohol Use (MH) Yes Home Medications: Ambulatory Orders Ergocalciferol [Vitamin D2] 50,000 unit PO FR 09/02/17 Tamsulosin HCl [Flomax] 0.4 mg PO HS 09/02/17 Multivitamin/Iron/Folic Acid [Centrum Adults Tablet] 1 each PO DAILY 10/20/18 Acetaminophen [Tylenol Arthritis] 650 mg PO BID 09/04/20 Atorvastatin [Lipitor] 40 mg PO HS 09/04/20 Baclofen 10 mg PO QAM 09/04/20 Famotidine [Pepcid] 40 mg PO BID 09/04/20 Meloxicam 15 mg PO DAILY 09/04/20 OXcarbazepine [Trileptal] 300 mg PO QAM 09/04/20 Alendronate Sodium [Fosamax] 70 mg PO FR 02/19/22 Ibuprofen [Motrin] 400 mg PO Q6HR PRN 09/23/22 ALPRAZolam [Alprazolam] 0.5 tab PO DIRECTED PRN 05/25/23 Controlled Substance Measures - Controlled Substance Measures Is patient prescribed a controlled substance at discharge?: No
== END ==
LOC: PNWHC3 08:07
PROVIDERS: ATTEND Specialist
DX: M51.36 Other intervertebral disc degeneration, lumbar region (principal); M47.816 Spondylosis without myelopathy or radiculopathy, lumbar region; G89.29 Other chronic pain; M46.1 Sacroiliitis, not elsewhere classified; Z87.891 Personal history of nicotine dependence; Z91.041 Radiographic dye allergy status; Z88.0 Allergy status to penicillin
CPT/HCPCS: 99211

== ENCOUNTER 2023-09-10 07:07 | Day surgery (SDC) | payer MEDICARE, OTHER ==
[2023-09-08 16:19] VITALS: BMI 25.7
[2023-09-10] MEDS ORDERED: LACTATED RINGERS 1,000 ML IV SCH (07:29)
[2023-09-10 08:05] VITALS: TEMP 97.1
[2023-09-10] MEDS ORDERED: methylPREDNISolone ACETATE 80 MG/ML 1 ML VIAL ONE (08:22)
--- NOTE | 2023-09-10 08:28 | P.PCN ---
Date of Procedure: 09/10/23 Procedure(s) Performed: PREOPERATIVE DIAGNOSIS: 1- Lumbar Degenerative Disc Diseases 2-Lumbar spondylosis with Facet arthropathy without myelopathy. POSTOPERATIVE DIAGNOSIS: 1-lumbar degenerative disc disease. 2-lumbar spondylosis with facet arthropathy without myelopathy. PROCEDURE 1. Lumbar epidural steroid injection under fluoroscopic guidance at the L2-3 level. (Fluoroscopy imaging was available in radiology department). ANESTHESIA: Lidocaine 1% 3 and then only. EBL: Minimal PROCEDURE INDICATION: The patient with low back pain and radiculitis symptoms unresponsive to conservative treatment. Fluoroscopy was used to optimize visualization of the needle placement and to maximize safety. PROCEDURE DESCRIPTION / TECHNIQUE: The patient was seen and identified in the preoperative area. Risks, benefits, complications including but not limited to infections ,bleeding ,allergic reaction to the medications ,nerve damage and not complete pain releife , and alternatives were discussed with the patient. The patient agreed to proceed with the procedure and signed the consent, and vital signs were stable. Patient was taken to the OR and time out was completed. The patient was placed in the prone position on procedure table and a pillow was placed under the abdomen to reduce lumbar lordosis. The lumbosacral area was prepped and draped in the usual sterile fashion.ere closely monitored during the procedure. Vital signs was monitered during the entire procedure. Using anterior-posterior fluoroscopy, the L2-3 interlaminar space was identified and the skin over this site was marked and then infiltrated with 1% lidocaine subcutaneously. Subsequently, a 20-gauge Tuohy epidural needle was inserted and advanced toward the epidural space using the ``Loss of resistance technique and guided by AP and lateral fluoroscopy, after negative aspiration for blood and CSF and in the absence of paresthesias. Again after negative aspiration, a 6 ml mixture containing 60 mg of Depo-medrol ( Preservetive Free ), and 2 ml of preservative free Normal Saline, and 2 ml of preservative free lidocaine 1% solution was injected, Needle was withdrawn intact, skin was cleansed, and bandages were applied. COMPLICATIONS: None DISPOSITION / PLANS: The patient was placed in a supine position and transferred to the recovery area in a stable condition for observation. There was no evidence of lower extremity motor or sensory deficit after the procedure. Patient was discharged from the recovery room after meeting discharge criteria. Home discharge instructions were given to the patient by the staff. The patient was reexamined prior to discharge. The patient will schedule a follow up in the clinic in 2-4 weeks. note= Isovue was not injected, because patient had ALLERGY to IVP dy
--- NOTE | 2023-09-10 08:39 | FL ---
Intraoperative/procedural fluoroscopic services were provided for lumbar epidural steroid injection. Total fluoroscopy time is 1.7 seconds with a total of 1 submitted image to PACS. Total DAP 0.98692 mG ym2. Please see the operative note for further details.
[2023-09-10 09:07] VITALS: BP 128/79; PULSE 51; RESP 16
== END 2023-09-10 09:02 | disposition home or self-care (01) ==
LOC: ORPAIN 07:07
PROVIDERS: ATTEND Specialist
DX: M51.16 Intervertebral disc disorders with radiculopathy, lumbar region (principal); M47.26 Other spondylosis with radiculopathy, lumbar region; Z88.0 Allergy status to penicillin; Z91.041 Radiographic dye allergy status
CPT/HCPCS: 62323; J1040

== ENCOUNTER → 2023-09-30 | Outpatient (CLI) | payer MEDICARE, OTHER ==
[2023-09-30 09:45] VITALS: BP 124/83; PULSE 78; RESP 15; TEMP 98.6
--- NOTE | 2023-09-30 14:42 | P.PAINPG ---
PQRS Measure Charge Sheet Comment: A 67 yr old male w at side with a history of severe and chronic LBP secondary to lumbar DDD and spondylosis with facet arthropathy without myelopathy presents today for evaluation s/p SHIVA L2-L3 #2. Pt states he experienced 70 % pain relief x 2-3 wks s/p procedure. Pt also recalls in Jul 2022 when he received a BL RFA L4-L5, L5-S1 and experienced 75% pain relief x 8 mo s/p procedure. Pain level is provoked at 6/10 in intensity, constant, localized in the lumbar spine, predominantly axial, dull in character without shooting pain. Pain is provoked by over activity. Pain is alleviated with PT x 2 wks in Sep 2023 which he is currently in, heat, ice, topical, home physician guided stretching regimen since 2020, repositioning and rest. Oswestry axial pain score of 22. Pt and stated they are shopping around for neurosurgeons and have yet to follow up w: Reid Cordoba MD, Neurosurgeon [address] [place], [place] Urged compliance. Interventional pain procedures completed include L TFESI L5-S1, SHIVA L5-S, T12- L1, L2-L3 x2, L SI injection x1 Patient is currently on Voltaren gel Patient denies any side effects of the medication(s), denies excessive drowsiness or sleepiness, denies suicidal ideation and reports that the current pain medication is helping to control the pain and improve activities of daily living. Patient denies any motor or sensory deficits. Patient denies any fever or night sweats, denies any change in the bowel movements or urination. Physical Examination: -Constitutional: Cooperative. Not in acute distress . - Neurologic: Cranial nerve II to XII intact. No focal neurological deficits. - Psychatric: Alert & oriented x 3. Matching mood & appropriate affect. Judgment and insight intact. - Musculoskeletal: Cervical spine: Muscle bulk/ tone/ strength in the bilateral upper extremities normal Vertebral body tenderness to palpation over Spurling test positive Distraction test positive Facet loading test positive TTP Thoracic spine Muscle bulk / tone/ strength in the bilateral paraspinal muscles normal Vertebral body tender to palpation over Facet loading test positive TTP Lumbar spine: Motor bulk/ tone/ strength lower extremities , thigh and legs : 5/5 Deep tendon reflexes : Normal Knee Jerk. Normal Ankle Jerk . Vertebral body tenderness to palpation Aponte Test positive Lumbar Facet Loading Test positive over BL L4-L5,L 5-S1 Straight Leg Raise: positive at 30 degrees right side/ left side Gaenslen's Test positive Sacral spine : Severe tenderness over the Sacroiliac joint: right side / left side Range of motion: Flexion of the lumbar spine <60 degrees Range of motion: Extension of the lumbar spine <20 degrees Gaenslen's Test positive right side / left side Elizabeth test: positive right side / left side Thigh Thrust Test positive right side / left side Sacral Thrust Test positive right side / left side Assessment and plan: Chronic LBP secondary to lumbar DDD, spondylosis with facet arthropathy without myelopathy, L Sacroiliitis Recommendation of BL RFA L4-L5, L5-S1. Exhibited substantial pain relief w prior RFA of BL L4-L5, L5-S1 in Jul 2022. Risks, benefits of procedure discussed and patient verbalized understanding. Protocol for discontinuation/continuation of medications chronic procedure discussed. All questions answered. I have spent less than 30 minutes on patient care today. Dr Lincoln was available by phone for the evaluation of this patient. The time was used to review the medical records including relevant urine studies and Prescription history (MAPs), review of the available imaging, evaluation and examination of the patient, coordination of care with the medical staff and if applicable refer ring physicians, as well as creation of the medical record PQRS Narrative: Smoking Status Former smoker Hx Alcohol Use (MH) Yes Home Medications: Ambulatory Orders Ergocalciferol [Vitamin D2] 50,000 unit PO FR 09/02/17 Tamsulosin HCl [Flomax] 0.4 mg PO HS 09/02/17 Multivitamin/Iron/Folic Acid [Centrum Adults Tablet] 1 each PO DAILY 10/20/18 Acetaminophen [Tylenol Arthritis] 650 mg PO BID 09/04/20 Atorvastatin [Lipitor] 40 mg PO HS 09/04/20 Baclofen 10 mg PO QAM 09/04/20 Famotidine [Pepcid] 40 mg PO BID 09/04/20 Meloxicam 15 mg PO DAILY 09/04/20 OXcarbazepine [Trileptal] 300 mg PO QAM 09/04/20 Alendronate Sodium [Fosamax] 70 mg PO FR 02/19/22 Ibuprofen [Motrin] 400 mg PO Q6HR PRN 09/23/22 ALPRAZolam [Alprazolam] 0.5 tab PO DIRECTED PRN 05/25/23 Controlled Substance Measures - Controlled Substance Measures Is patient prescribed a controlled substance at discharge?: No
== END ==
LOC: PNWHC3 08:59
PROVIDERS: ATTEND Specialist
DX: M51.37 Other intervertebral disc degeneration, lumbosacral region (principal); M47.817 Spondylosis without myelopathy or radiculopathy, lumbosacral region; G89.29 Other chronic pain; Z87.891 Personal history of nicotine dependence; Z91.041 Radiographic dye allergy status; Z88.0 Allergy status to penicillin
CPT/HCPCS: 99211

== ENCOUNTER 2023-10-23 07:29 | Day surgery (SDC) | payer MEDICARE, OTHER ==
[2023-10-23] MEDS ORDERED: LACTATED RINGERS 1,000 ML IV ONE (07:43)
[2023-10-23] MEDS ORDERED: LACTATED RINGERS 1,000 ML IV SCH (07:57)
[2023-10-23 08:04] VITALS: TEMP 97.5
[2023-10-23] MEDS ORDERED: fentaNYL (PF) 50 MCG/ML 2 ML AMP ONE (09:01)
[2023-10-23] MEDS ORDERED: MIDAZOLAM 2 MG/2 ML VIAL ONE (09:01)
[2023-10-23] MEDS ORDERED: ROPIVACAINE 5MG/ML 20ML VIAL ONE (09:03)
[2023-10-23] MEDS ORDERED: methylPREDNISolone ACETATE 40 MG/ML 1 ML VIAL ONE (09:03)
--- NOTE | 2023-10-23 09:26 | P.PCN ---
Date of Procedure: 10/23/23 Procedure(s) Performed: PREOPERATIVE DIAGNOSIS: 1-Lumbar Spondylosis with Facet Arthropathy without myelopathy. 2- Lumber degenerative disc disease. POSTOPERATIVE DIAGNOSIS: 1- Lumbar Spondylosis with Facet Arthropathy without myelopathy. 2- Lumber degenerative disc disease. PROCEDURES : Bilateral Radiofrequency thermocoagulation, L3 , L4 , and L5 medial branch, with fluoroscopic guidance (fluoroscopy images available in the radiology department) ( to denervate the facet joint at Bilateral L4-5 ,and L5-S1 levels ). ANESTHESIA: Monitored anesthesia care as per anesthesia department. EBL: Minimal PROCEDURE INDICATION: The patient with low back pain secondary to lumbar facet arthropathy who had more than 50% relief of her pain with previous diagnostic lumbar medial branch block with bupivacaine. PROCEDURE DESCRIPTION / TECHNIQUE: The patient was seen and identified in the preoperative area. Risks, benefits, complications, including but not limited to risk of infection ,bleeding , allergic reactions to the medications and no complete pain releife , and alternatives were discussed with the patient, the patient agreed to proceed with the procedure and signed the consent. IV was started. Vital signs remained stable throughout the procedure. Patient was taken to the OR and time out was completed. The patient was placed in the prone position on the procedure table. The lumber area was prepped and draped in the usual sterile fashion. . Vital signs were closely monitored during the procedure .IV sedation was used during the procedure to decrease patients anxiety. Using AP and then oblique fluoroscopy, the ``eye of the [place] dog cor responding to the connection between the superior and transverse articular processes of right L3, L4, and L5 were identified, marked, and localized with 1% lidocaine. Subsequently, a [id number] radiofrequency cannula with a 10- mm active tip was advanced guided by fluoroscopy to each of the``eyes of the [place] dog at right L3, L4, and L5. Each site then underwent sensory testing at 50 Hz and 0 to 1 volt and motor testing at 2.5 Hz and 0 to 3 volt with local stimulation, but no radicular symptoms down the legs. Thereafter each sites underwent radiofrequency thermocoagulation at 80 degrees celsius for 90 seconds after injecting 0.5 ml of PF Ropivacaine 1ml, then after the thermocoagulation done , 1 ml of the block solution containing Depo-Medrol 20 mg and 3 ml of Ropivacaine 0.5% was injected at the right L3 , L4 , and L5 , levels after negative aspiration of CSF and blood and with no paresthesias. Cannulas were retracted while injecting lidocaine 1% until the needle is out. The same procedure was repeated at the level of Left L3, L4, and L5 levels. At the end of the procedure, the skin was cleansed and bandages were applied. COMPLICATIONS: No acute complications. DISPOSITION / PLANS: The patient was placed in a supine position and transferred to the recovery area in a stable condition for observation and was discharged from the recovery room after meeting discharge criteria. Home discharge instructions given to the patient by the staff. The patient was reexamined prior to discharge. The patient will schedule a follow up in the clinic in 2-4 weeks.
[2023-10-23] MEDS ORDERED: IV FLUID CONTINUATION 700 ML IV ONE (09:30)
[2023-10-23 10:11] VITALS: BP 121/82; PULSE 56; RESP 18
--- NOTE | 2023-10-23 10:39 | FL ---
Intraoperative/procedural fluoroscopic services were provided. Total fluoroscopy time is 15.6 seconds with a total of 7 submitted images to PACS. Please see the operative/procedural note for further det ails. DAP: [id number] mGym2
== END 2023-10-23 10:00 | disposition home or self-care (01) ==
LOC: ORPAIN 07:29
PROVIDERS: ATTEND Specialist
DX: M47.816 Spondylosis without myelopathy or radiculopathy, lumbar region (principal); M51.36 Other intervertebral disc degeneration, lumbar region; M19.90 Unspecified osteoarthritis, unspecified site; K21.9 Gastro-esophageal reflux disease without esophagitis; Z88.0 Allergy status to penicillin; Z91.041 Radiographic dye allergy status
CPT/HCPCS: 64635; 64636 ×2; J2250; J1030; J3010; J2795

== ENCOUNTER 2023-11-19 07:41 | Day surgery (SDC) | payer MEDICARE, OTHER ==
[2023-11-12 13:02] VITALS: BMI 25.7
[2023-11-19] MEDS ORDERED: LACTATED RINGERS 1,000 ML IV SCH (07:46)
[2023-11-19 08:40] VITALS: TEMP 97.6
[2023-11-19] MEDS ORDERED: PROPOFOL 10 MG/ML 20 ML VIAL IV ONE (09:17)
--- NOTE | 2023-11-19 09:22 | P.GSHP ---
History of Present Illness H&P Date: 11/19/23 Chief Complaint: History of colon polyps Is a 60-year-old male with history of colon polyps. Patient presents today for colonoscopy. Past Medical History Past Medical History: GERD/Reflux, Osteoarthritis (OA), Prostate Disorder Additional Past Medical History / Comment(s): DIVERTICULITIS. hx ruptured colon November 21, 2015. OA NECK, PINCHED NERVE. History of Any Multi-Drug Resistant Organisms: None Reported Past Surgical History: Bowel Resection, Orthopedic Surgery, Tonsillectomy Additional Past Surgical History / Comment(s): colonoscopy. lt shoulder sx. orif rt elbow. colostomy, THEN REVERSAL. PAIN CLINIC PROCEDURE Past Anesthesia/Blood Transfusion Reactions: No Reported Reaction Past Psychological History: No Psychological Hx Reported Smoking Status: Current some day smoker Past Alcohol Use History: Rare Additional Past Alcohol Use History / Comment(s): smoked 1 - 1 1/2 ppd, 17-18 yrs, quit in nov 2015-OCCASIONAL PIPE NOW Past Drug Use History: None Reported - Past Family History Mother Family Medical History: CVA/TIA Medications and Allergies Home Medications Medication Instructions Recorded Confirmed Type Ergocalciferol [Vitamin D2] 50,000 unit PO FR 09/02/17 11/19/23 History Tamsulosin HCl [Flomax] 0.4 mg PO HS 09/02/17 11/19/23 History Multivitamin/Iron/Folic Acid 1 each PO DAILY 10/20/18 11/19/23 History [Centrum Adults Tablet] Acetaminophen [Tylenol Arthritis] 650 mg PO BID 09/04/20 11/19/23 History Atorvastatin [Lipitor] 40 mg PO MOWEFR 09/04/20 11/19/23 History Baclofen 10 mg PO QAM 09/04/20 11/19/23 History Famotidine [Pepcid] 40 mg PO BID 09/04/20 11/19/23 History Meloxicam 15 mg PO DAILY 09/04/20 11/19/23 History Alendronate Sodium [Fosamax] 70 mg PO FR 02/19/22 11/19/23 History Ibuprofen [Motrin] 400 mg PO Q6HR PRN 09/23/22 11/19/23 History ALPRAZolam [Alprazolam] 0.5 tab PO DIRECTED PRN 05/25/23 11/19/23 History Allergies Allergy/AdvReac Type Severity Reaction Status Date / Time Iodinated Contrast Media Allergy Nausea & Verified 11/19/23 08:28 [Iodinated Contrast- Oral Vomiting and IV Dye] Penicillins Allergy Unknown Verified 11/19/23 08:28 Childhood IV DYE AdvReac Nausea & Uncoded 11/19/23 08:28 Vomiting Surgical - Exam Vital Signs Temp Pulse Resp BP Pulse Ox 97.6 F 62 14 150/80 99 11/19/23 08:38 11/19/23 08:38 11/19/23 08:38 11/19/23 08:38 11/19/23 08:38 - General well developed, well nourished, no distress - Eyes PERRL - ENT normal pinna - Neck no masses - Respiratory normal expansion - Cardiovascular Rhythm: regular - Abdomen Abdomen: soft, non tender Assessment and Plan Assessment: History of colon polyps. We'll perform colonoscopy.
--- NOTE | 2023-11-19 09:34 | P.OP ---
Date of Procedure: 11/19/23 Preoperative Diagnosis: History of colon polyps Postoperative Diagnosis: Colon prep Normal Colon Procedure(s) Performed: Colonoscopy Anesthesia: MAC Surgeon: Anthony Quintana Pathology: none sent Condition: stable Disposition: PACU Description of Procedure: The patient's placed on the endoscopy table in the lateral position. He received IV sedation. Digital rectal exam was performed. There is a large amount stool the rectum. The flexible colonoscope was then placed patient anus passed with colon. Scope was passed beyond the splenic flexure secondary poor colon prep. Large amount stool seen the colon. There was solid stool seen at the level of the transverse colon. At this point scope withdrawn. The visualized descending and sigmoid colon appeared normal. However the visualized colon was limited due to the poor colon prep. There is a large amount stool throughout the colon. Scope was then brought back the rectum this appeared normal. Scope withdrawn for patient. The visualize colon appeared normal. However the view was quite limited due to the poor colon prep. The patient s hould be reprepped to have the remaining colon examined.
[2023-11-19 09:51] VITALS: RESP 16
[2023-11-19 10:15] VITALS: BP 127/71; PULSE 56
== END 2023-11-19 10:41 | disposition home or self-care (01) ==
LOC: ORWHC2ENDO 07:41
PROVIDERS: ATTEND Surgery
DX: Z12.11 Encounter for screening for malignant neoplasm of colon (principal); Z86.010 Personal history of colon polyps; Z87.19 Personal history of other diseases of the digestive system; K21.9 Gastro-esophageal reflux disease without esophagitis; M19.90 Unspecified osteoarthritis, unspecified site; N42.9 Disorder of prostate, unspecified; Z90.49 Acquired absence of other specified parts of digestive tract; Z87.891 Personal history of nicotine dependence; Z79.1 Long term (current) use of non-steroidal anti-inflammatories (NSAID); Z79.899 Other long term (current) drug therapy; Z88.0 Allergy status to penicillin; Z91.041 Radiographic dye allergy status
CPT/HCPCS: J2704; G0105

== ENCOUNTER → 2023-11-25 | Outpatient (CLI) | payer MEDICARE, OTHER ==
[2023-11-25 08:42] VITALS: BP 148/98; PULSE 76; RESP 16; TEMP 97.6
--- NOTE | 2023-11-25 14:27 | P.PAINPG ---
PQRS Measure Charge Sheet Comment: A 68 yr old male with a history of severe and chronic LBP secondary to lumbar DDD and spondylosis with facet arthropathy without myelopathy presents today for evaluation s/p BL RFA L3-L5. Pt states he experienced 90 % pain relief s/p procedure. Pain level is provoked at 2/10 in intensity, constant, localized in the lumbar spine, predominantly axial, dull in character without shooting pain. Pain is provoked by over activity. Pain is alleviated with injections, PT x 6 wks in Sep/ Oct 2023 , heat, ice, topical, home physician guided stretching regimen since 2020, repositioning and rest. Oswestry axial pain score of 19. Has not followed up sushant Cordoba MD, Neurosurgeon. Interventional pain procedures completed include L TFESI L5-S1, SHIVA L5-S, T12- L1, L2-L3 x2, L SI injection x1 Patient is currently on Voltaren gel Patient denies any side effects of the medication(s), denies excessive drowsiness or sleepiness, denies suicidal ideation and reports that the current pain medication is helping to control the pain and improve activities of daily living. Patient denies any motor or sensory deficits. Patient denies any fever or night sweats, denies any change in the bowel movements or urination. Physical Examination: -Constitutional: Cooperative. Not in acute distress . - Neurologic: Cranial nerve II to XII intact. No focal neurological deficits. - Psychatric: Alert & oriented x 3. Matching mood & appropriate affect. Judgment and insight intact. - Musculoskeletal: Cervical spine: Muscle bulk/ tone/ strength in the bilateral upper extremities normal Vertebral body tenderness to palpation over Spurling test positive Distraction test positive Facet loading test positive TTP Thoracic spine Muscle bulk / tone/ strength in the bilateral paraspinal muscles normal Vertebral body tender to palpation over Facet loading test positive TTP Lumbar spine: Motor bulk/ tone/ strength lower extremities , thigh and legs : 5/5 Deep tendon reflexes : Normal Knee Jerk. Normal Ankle Jerk . Vertebral body tenderness to palpation Aponte Test positive Lumbar Facet Loading Test positive over BL L4-L5,L 5-S1 Straight Leg Raise: positive at 30 degrees right side/ left side Gaenslen's Test positive Sacral spine : Severe tenderness over the Sacroiliac joint: right side / left side Range of motion: Flexion of the lumbar spine <60 degrees Range of motion: Extension of the lumbar spine <20 degrees Gaenslen's Test positive right side / left side Elizabeth test: positive right side / left side Thigh Thrust Test positive right side / left side Sacral Thrust Test positive right side / left side Assessment and plan: Chronic LBP secondary to lumbar DDD, spondylosis with facet arthropathy without myelopathy, L Sacroiliitis Will manage residual pain and may RTC on an as needed basis. All questions answered. I have spent less than 30 minutes on patient care today. Dr Lincoln was available by phone for the evaluation of this patient. The time was used to review the medical records including relevant urine studies and Prescription history (MAPs), review of the available imaging, evaluation and examination of the patient, coordination of care with the medical staff and if applicable referring physicians, as well as creation of the medical record PQRS Narrative: Smoking Status Former smoker Hx Alcohol Use (MH) Yes Home Medications: Ambulatory Orders Ergocalciferol [Vitamin D2] 50,000 unit PO FR 09/02/17 Tamsulosin HCl [Flomax] 0.4 mg PO HS 09/02/17 Multivitamin/Iron/Folic Acid [Centrum Adults Tablet] 1 each PO DAILY 10/20/18 Acetaminophen [Tylenol Arthritis] 650 mg PO BID 09/04/20 Atorvastatin [Lipitor] 40 mg PO MOWEFR 09/04/20 Baclofen 10 mg PO QAM 09/04/20 Famotidine [Pepcid] 40 mg PO BID 09/04/20 Meloxicam 15 mg PO DAILY 09/04/20 Alendronate Sodium [Fosamax] 70 mg PO FR 02/19/22 Ibuprofen [Motrin] 400 mg PO Q6HR PRN 09/23/22 ALPRAZolam [Alprazolam] 0.5 tab PO DIRECTED PRN 05/25/23 Controlled Substance Measures - Controlled Substance Measures Is patient prescribed a controlled substance at discharge?: No
== END ==
LOC: PNWHC3 08:04
PROVIDERS: ATTEND Specialist
DX: M51.37 Other intervertebral disc degeneration, lumbosacral region (principal); G89.29 Other chronic pain; M46.1 Sacroiliitis, not elsewhere classified; M47.817 Spondylosis without myelopathy or radiculopathy, lumbosacral region; Z88.8 Allergy status to other drugs, medicaments and biological substances; Z88.0 Allergy status to penicillin; Z91.041 Radiographic dye allergy status; Z87.891 Personal history of nicotine dependence
CPT/HCPCS: 99211

== ENCOUNTER 2024-02-19 16:44 | Observation (INO) | payer MEDICARE, OTHER ==
[2024-02-19] MEDS: diphenhydrAMINE 50 MG/ML 1 ML VIAL IVP STA (19:09)
[2024-02-19] MEDS: FAMOTIDINE 20 MG/2 ML VIAL IV STA (19:12)
[2024-02-19] MEDS: methylPREDNISolone SOD SUCCI 125 MG/2 ML VIAL IV STA (19:15)
--- NOTE | 2024-02-19 19:27 | ED ---
General Adult HPI - General Chief complaint: Skin/Abscess/Foreign Body Stated complaint: Rectal Abcess Time Seen by Provider: 02/19/24 18:30 Source: patient Mode of arrival: ambulatory Limitations: no limitations - History of Present Illness Initial comments: 68-year-old male presenting to the ED with a chief complaint of abscess. Patient notes a history of abscess in the left perirectal area. States 3 days ago started to notice a small lump in his left buttock about the size of a fingertip and went to his PCP. Reports that he was prescribed antibiotics which he believes was Keflex. States since then this has started to become worse and is now about the size of a finger which made him present to his PCP again today who sent him to the emergency room for further evaluation. Does note some associated chills but no fever. No changes in bowel or bladder habits. No abdominal pain. No chest pain or shortness of breath. No other complaints at this time. - Related Data Home Medications Medication Instructions Recorded Confirmed Tamsulosin HCl [Flomax] 0.4 mg PO DAILY 09/02/17 02/19/24 Atorvastatin [Lipitor] 40 mg PO MOWEFR 09/04/20 02/19/24 Baclofen 10 mg PO BID 09/04/20 02/19/24 Famotidine [Pepcid] 40 mg PO BID 09/04/20 02/19/24 Alendronate Sodium [Fosamax] 70 mg PO FR 02/19/22 02/19/24 Amitriptyline HCl [Elavil] 20 mg PO HS 02/19/24 02/19/24 Celecoxib [CeleBREX] 200 mg PO BID 02/19/24 02/19/24 Cephalexin [Keflex] 250 mg PO BID 02/19/24 02/19/24 Ergocalciferol (Vitamin D2) 1,250 mcg PO FR 02/19/24 02/19/24 [Drisdol (50,000 Iu)] Allergies Allergy/AdvReac Type Severity Reaction Status Date / Time Iodinated Contrast Media Allergy Nausea & Verified 02/19/24 21:03 [Iodinated Contrast- Oral Vomiting and IV Dye] Penicillins Allergy Unknown Verified 02/19/24 21:03 Childhood IV DYE AdvReac Nausea & Uncoded 02/19/24 17:03 Vomiting Review of Systems ROS Statement: Those systems with pertinent positive or pertinent negative responses have been documented in the HPI. ROS Other: All systems not noted in ROS Statement are negative. Past Medical History Past Medical History: GERD/Reflux, Osteoarthritis (OA), Prostate Disorder Additional Past Medical History / Comment(s): DIVERTICULITIS. hx ruptured colon November 21, 2015. OA NECK, PINCHED NERVE. History of Any Multi-Drug Resistant Organisms: None Reported Past Surgical History: Bowel Resection, Orthopedic Surgery, Tonsillectomy Additional Past Surgical History / Comment(s): colonoscopy. lt shoulder sx. orif rt elbow. colostomy, THEN REVERSAL. PAIN CLINIC PROCEDURE Past Anesthesia/Blood Transfusion Reactions: No Reported Reaction Past Psychological History: No Psychological Hx Reported Smoking Status: Current some day smoker Past Alcohol Use History: Occasional Past Drug Use History: None Reported - Past Family History Mother Family Medical History: CVA/TIA General Exam Limitations: no limitations General appearance: alert, in no apparent distress Eye exam: Present: normal appearance Neck exam: Present: normal inspection Respiratory exam: Present: normal lung sounds bilaterally Cardiovascular Exam: Present: regular rate GI/Abdominal exam: Present: soft, normal bowel sounds. Absent: distended, tenderness, guarding, rebound, rigid Rectal exam: Present: other (Patient declined natural resource economist. In the left perirectal area there is a fluctuant area measuring approximately 3 x 3 cm which is warm and tender to palpation. However does appear to have deeper area of induration) Neurological exam: Present: alert, oriented X3 Skin exam: Present: warm, dry Course Vital Signs 02/19/24 17:00 Temperature 98.7 F Pulse Rate 86 Respiratory 18 Rate Blood Pressure 121/82 O2 Sat by Pulse 96 Oximetry Medical Decision Making - Medical Decision Making Was pt. sent in by a medical professional or institution (, PA, AVIONICS SAFETY INSPECTOR, urgent care, hospital, or care home...) When possible be specific @ -No Did you speak to anyone other than the patient for history (EMS, parent, family, police, friend...)? What history was obtained from this source @ -No Did you review nursing and triage notes (agree or disagree)? Why? @ -I reviewed and agree with nursing and triage notes Were old charts reviewed (outside hosp., previous admission, EMS record, old EKG, old radiological studies, urgent care reports/EKG's, care home records)? Report findings @ -No old charts were reviewed Differential Diagnosis (chest pain, altered mental status, abdominal pain women, abdominal pain men, vaginal bleeding, weakness, fever, dyspnea, syncope, headache, dizziness, GI bleed, back pain, seizure, CVA, palpatations, mental health, musculoskeletal)? @ -Differential Musculoskeletal Muscular strain, contusion, ligament sprain, fracture, arthritis, septic arthritis, bursitis, cellulitis, muscle spasm, nerve compression, DVT, arterial occlusion, herpes zoster, electrolyte abnormality, tumor.... This is not meant to be in all inclusive list EKG interpreted by me (3pts min.). @ -None X-rays interpreted by me (1pt min.). @ -None done CT interpreted by me (1pt min.). @ -CT interpreted me which showed a somewhat rounded asymmetric density on the left side measuring 4 x 3 cm suggestive of developing abscess. U/S interpreted by me (1pt. min.). @ -None done What testing was considered but not performed or refused? (CT, X-rays, U/S, lab s)? Why? @ -None What meds were considered but not given or refused? Why? @ -None Did you discuss the management of the patient with other professionals (professionals i.e. , PA, AVIONICS SAFETY INSPECTOR, lab, RT, psych nurse, case management social worker, camera maker, teacher, gifts officer, human services case manager)? Give summary @ -Discussed with Dr. Perez who accepts admission of the patient. Was smoking cessation discussed for >3mins.? @ -No Was critical care preformed (if so, how long)? @ -No Were there social determinants of health that impacted care today? How? (Homelessness, low income, unemployed, alcoholism, drug addiction, transportation, low edu. Level, literacy, decrease access to med. care, residential, rehab)? @ -No Was there de-escalation of care discussed even if they declined (Discuss DNR or withdrawal of care, Hospice)? DNR status @ -No What co-morbidities impacted this encounter? (DM, HTN, Smoking, COPD, CAD, Cancer, CVA, ARF, Chemo, Hep., AIDS, mental health diagnosis, sleep apnea, morbid obesity)? @ -None Was patient admitted / discharged? Hospital course, mention meds given and route , prescriptions, significant lab abnormalities, going to OR and other pertinent info. @ -Admission 68-year-old male with history of prior perirectal abscesses presenting to the ED with a chief complaint of abscess. Initially started 3 days ago and was started on Keflex however despite this reports worsening of this with increasing pain and increasing in size. On examination there does appear to be a superficial area of fluctuance however deeper induration. For this reason incision and drainage was not performed bedside. Laboratory studies reviewed. CBC does show an elevation white blood cell count at 15 otherwise chemistry panel unremarkable. CT of the pelvis at the level of the anus showed a somewhat rounded asymmetric density on the left side measuring 4 x 3 cm suggestive of developing abscess. Patient started on IV antibiotics and admitted n.p.o. Discussed plan of care with patient who is in agreement. Upon admission, vital signs stable afebrile. Undiagnosed new problem with uncertain prognosis? @ -No Drug Therapy requiring intensive monitoring for toxicity (Heparin, Nitro, Insulin, Cardizem)? @ -No Were any procedures done? @ -No Diagnosis/symptom? @ -Left perirectal abscess Acute, or Chronic, or Acute on Chronic? @ -Acute Uncomplicated (without systemic symptoms) or Complicated (systemic symptoms)? @ -Uncomplicated Side effects of treatment? @ -No Exacerbation, Progression, or Severe Exacerbation? @ -No Poses a threat to life or bodily function? How? (Chest pain, USA, CT, pneumonia, PE, COPD, DKA, ARF, appy, cholecystitis, CVA, Diverticulitis, Homicidal, Suicidal, threat to staff... and all critical care pts) @ -Unlikely - Lab Data Result diagrams: 02/19/24 19:07 02/19/24 19:07 Lab Results 02/19/24 02/19/24 Range/Units 19:07 19:07 WBC 15.0 H (3.8-10.6) k/uL RBC 5.08 (4.30-5.90) m/uL Hgb 15.6 (13.0-17.5) gm/dL Hct 47.4 (39.0-53.0) % MCV 93.3 (80.0-100.0) fL MCH 30.7 (25.0-35.0) pg MCHC 32.9 (31.0-37.0) g/dL RDW 13.3 (11.5-15.5) % Plt Count 243 (150-450) k/uL MPV 8.3 Neutrophils % 75 % Lymphocytes % 13 % Monocytes % 8 % Eosinophils % 3 % Basophils % 1 % Neutrophils # 11.2 H (1.3-7.7) k/uL Lymphocytes # 1.9 (1.0-4.8) k/uL Monocytes # 1.1 H (0-1.0) k/uL Eosinophils # 0.4 (0-0.7) k/uL Basophils # 0.1 (0-0.2) k/uL Sodium 140 (137-145) mmol/L Potassium 4.5 (3.5-5.1) mmol/L Chloride 106 (98-107) mmol/L Carbon Dioxide 25 (22-30) mmol/L Anion Gap 9 mmol/L BUN 19 (9-20) mg/dL Creatinine 0.91 (0.66-1.25) mg/dL Est GFR (CKD-EPI)AfAm >90 (>60 ml/min/1.73 sqM) Est GFR (CKD-EPI)NonAf 86 (>60 ml/min/1.73 sqM) Glucose 112 H (74-99) mg/dL Calcium 9.7 (8.4-10.2) mg/dL Total Bilirubin 0.6 (0.2-1.3) mg/dL AST 28 (17-59) U/L ALT 25 (4-49) U/L Alkaline Phosphatase 88 (38-126) U/L Total Protein 7.1 (6.3-8.2) g/dL Albumin 4.4 (3.5-5.0) g/dL Disposition Clinical Impression: Perirectal abscess Disposition: ADMITTED IP TO THIS HOSP Condition: Good Referrals: Fiona Fletcher DO [Primary Care Provider] - 1-2 days Time of Disposition: 00:14
[2024-02-19 19:57] LABS: Basophils # (A) 0.1 k/uL (0-0.2); Basophils % (A) 1 %; Eosinophils # (A) 0.4 k/uL (0-0.7); Eosinophils % (A) 3 %; HCT 47.4 % (39.0-53.0); HGB 15.6 gm/dL (13.0-17.5); Lymphocytes # (A) 1.9 k/uL (1.0-4.8); Lymphocytes % (A) 13 %; MCH 30.7 pg (25.0-35.0); MCHC 32.9 g/dL (31.0-37.0); MCV 93.3 fL (80.0-100.0); Mean Platelet Volume 8.3; Monocytes # (A) 1.1 k/uL (0-1.0); Monocytes % (A) 8 %; Neutrophils # (A) 11.2 k/uL (1.3-7.7); Neutrophils % (A) 75 %; Platelet Count 243 k/uL (150-450); RBC 5.08 m/uL (4.30-5.90); RDW 13.3 % (11.5-15.5)
[2024-02-19 20:55] LABS: ALT 25 U/L (4-49); AST 28 U/L (17-59); African American GFR (CKD) >90 (>60 ml/min/1.73 sqM); Albumin 4.4 g/dL (3.5-5.0); Alkaline Phosphatase 88 U/L (38-126); Anion Gap 9 mmol/L; Blood Urea Nitrogen 19 mg/dL (9-20); Calcium 9.7 mg/dL (8.4-10.2); Carbon Dioxide 25 mmol/L (22-30); Chloride 106 mmol/L (98-107); Glucose 112 mg/dL (74-99); Non-African American GFR(CKD) 86 (>60 ml/min/1.73 sqM); Potassium 4.5 mmol/L (3.5-5.1); Sodium 140 mmol/L (137-145); Total Bilirubin 0.6 mg/dL (0.2-1.3); Total Protein 7.1 g/dL (6.3-8.2)
[2024-02-19] MEDS: MORPHINE SULFATE 2 MG/ML SYRINGE IVP ONE (21:52)
[2024-02-19] MEDS: ONDANSETRON 4 MG/2 ML VIAL IVP STA (21:53)
--- NOTE | 2024-02-19 22:08 | CT ---
EXAMINATION TYPE: CT pelvis w con CT DLP: 655.3 mGycm, Automated exposure control for dose reduction was used. DATE OF EXAM: 02/19/2024 9:33 PM COMPARISON: None. CLINICAL INDICATION:Male, 68 years old with history of L perirectal abscess; Perirectal abscess since Thursday. TECHNIQUE: CT of the pelvis performed with IV contrast, with early and delayed images. Multiplanar reformats gen erated in soft tissue algorithm. Contrast used:100ml mL of Isovue 300 with IV Contrast, (none if empty) Oral contrast used: without Oral Contrast (none if empty) FINDINGS: There is skin thickening and subcutaneous fat stranding extending from the medial left gluteal region , through intergluteal cleft, to the perineum, compatible with edema and cellulitis. At the level of the anus, there is a somewhat rounded asymmetric density on the left side, overall lo wer in attenuation but somewhat heterogeneous, measuring approximately 4 x 3 cm suggesting phlegmon o r developing abscess. Ischiorectal fossae appear essentially normal. Rectum and perirectal fat appear within normal limits. There is anastomosis noted in the sigmoid region with a moderate amount of fecal material in this ar ea but the anastomosis appears intact. There do appear to be a couple diverticula without evidence of diverticulitis. No free pelvic fluid. No pelvic or inguinal lymphadenopathy. Moderate atherosclerotic calcification of the distal abdominal aorta and iliac arteries. Prostate appears enlarged measuring 5.5 cm transverse. Parenchyma appears relatively homogeneous. Pro state mildly indents the base of the bladder. Bladder is otherwise unremarkable. No soft tissue abnormalities in the pelvis. Mild to moderate degenerative changes of the lower lumbar spine with mild levocurvature. Mild bilater al hip arthropathy. No acute osseous abnormality. IMPRESSION: 1. Edema and cellulitis on the left extending from the medial left gluteal region, through interglut eal cleft, to the perineum. 2. At the level of the anus, a somewhat rounded asymmetric density on the left side measuring 4 x 3 cm is suggestive of phlegmon or developing abscess. 3. Prostatomegaly.
[2024-02-20] MEDS ORDERED: ACETAMINOPHEN TAB 325 MG TAB PO PRN (00:15)
[2024-02-20] MEDS ORDERED: HYDROmorphone 0.5 MG/0.5 ML SYRINGE IVP PRN (00:15)
[2024-02-20] MEDS ORDERED: ONDANSETRON 4 MG/2 ML VIAL IVP PRN (00:15)
[2024-02-20] MEDS ORDERED: NALOXONE 0.4 MG/ML 1 ML VIAL IV PRN (00:15)
[2024-02-20] MEDS ORDERED: VANCOMYCIN IV PER PHARMACY 1 EACH MISC MISCELLANE PRN (00:17)
[2024-02-20] MEDS: SODIUM CHLORIDE 0.9% 1,000 ML IV SCH (00:22)
[2024-02-20] MEDS: VANCOMYCIN 1,500 MG in SODIUM CHLORIDE 0.9% 500 ML 500 ML IVPB STA (00:51)
[2024-02-20] MEDS: IBUPROFEN 400 MG TAB PO PRN (08:40)
[2024-02-20 09:46] LABS: Basophils % (A) 0 %; Eosinophils # (A) 0.2 k/uL (0-0.7); Eosinophils % (A) 1 %; HCT 46.5 % (39.0-53.0); HGB 15.3 gm/dL (13.0-17.5); Lymphocytes # (A) 1.3 k/uL (1.0-4.8); Lymphocytes % (A) 8 %; MCHC 32.9 g/dL (31.0-37.0); MCV 94.2 fL (80.0-100.0); Mean Platelet Volume 8.1; Monocytes # (A) 0.4 k/uL (0-1.0); Monocytes % (A) 2 %; Neutrophils # (A) 14.3 k/uL (1.3-7.7); Neutrophils % (A) 88 %; Platelet Count 243 k/uL (150-450); RBC 4.94 m/uL (4.30-5.90); RDW 13.1 % (11.5-15.5); WBC 16.3 k/uL (3.8-10.6)
[2024-02-20 10:09] LABS: INR 0.9 (<1.2); Prothrombin Time 10.2 sec (10.0-12.5)
[2024-02-20 10:15] LABS: African American GFR (CKD) >90 (>60 ml/min/1.73 sqM); Anion Gap 10 mmol/L; Blood Urea Nitrogen 18 mg/dL (9-20); Calcium 9.4 mg/dL (8.4-10.2); Carbon Dioxide 25 mmol/L (22-30); Chloride 108 mmol/L (98-107); Glucose 140 mg/dL (74-99); Non-African American GFR(CKD) >90 (>60 ml/min/1.73 sqM); Potassium 4.8 mmol/L (3.5-5.1); Sodium 143 mmol/L (137-145)
[2024-02-20] MEDS: VANCOMYCIN 1,500 MG in SODIUM CHLORIDE 0.9% 500 ML 500 ML IVPB SCH (14:23)
[2024-02-20] MEDS ORDERED: MIDAZOLAM 2 MG/2 ML VIAL ONE (15:10)
[2024-02-20] MEDS ORDERED: fentaNYL (PF) 50 MCG/ML 2 ML AMP ONE (15:10)
[2024-02-20] MEDS ORDERED: LIDOCAINE 1% INJ 10MG/ML (20 ML MDV) ONE (15:10)
[2024-02-20] MEDS ORDERED: ONDANSETRON 4 MG/2 ML VIAL ONE (15:10)
[2024-02-20] MEDS ORDERED: PROPOFOL 10 MG/ML 20 ML VIAL IV ONE (15:10)
[2024-02-20] MEDS: SODIUM CHLORIDE 0.9% 1,000 ML IV ONE (15:10)
[2024-02-20] MEDS: LACTATED RINGERS 1,000 ML IV ONE (15:48)
[2024-02-20] MEDS: HYDROmorphone 1 MG/ML 1 ML SYRINGE IVP PRN (17:14)
--- NOTE | 2024-02-20 19:42 | P.GSHP ---
History of Present Illness H&P Date: 02/20/24 patient is a 68-year-old male presenting with perianal pain for last several days the patient has significant history of incision and drainage of this perianal region several times by primary physician and ED staff. Patient states that this region is burning and starting to get worse initially started as a dime size but now full at this couple. Patient currently denies nausea vomiting fevers chills shortness of breath or chest pain. Past medical history: Diverticulitis Past surgical history colostomy with reversal, perianal incision and drainage Social denies 3 ALLERGIES to penicillin, contrast - Review of Systems Comment: review of systems negative except for the above HPI Past Medical History Past Medical History: GERD/Reflux, Osteoarthritis (OA), Prostate Disorder Additional Past Medical History / Comment(s): DIVERTICULITIS. hx ruptured colon November 21, 2015. OA NECK, PINCHED NERVE. History of Any Multi-Drug Resistant Organisms: None Reported Past Surgical History: Bowel Resection, Orthopedic Surgery, Tonsillectomy Additional Past Surgical History / Comment(s): colonoscopy. lt shoulder sx. o rif rt elbow. colostomy, THEN REVERSAL. PAIN CLINIC PROCEDURE Past Anesthesia/Blood Transfusion Reactions: No Reported Reaction Past Psychological History: No Psychological Hx Reported Smoking Status: Current some day smoker Past Alcohol Use History: Occasional Additional Past Alcohol Use History / Comment(s): smoked 1 - 1 1/2 ppd, 17-18 yrs, quit in nov 2015-OCCASIONAL PIPE NOW Past Drug Use History: None Reported - Past Family History Mother Family Medical History: CVA/TIA Medications and Allergies Home Medications Medication Instructions Recorded Confirmed Type Tamsulosin HCl [Flomax] 0.4 mg PO DAILY 09/02/17 02/19/24 History Atorvastatin [Lipitor] 40 mg PO MOWEFR 09/04/20 02/19/24 History Baclofen 10 mg PO BID 09/04/20 02/19/24 History Famotidine [Pepcid] 40 mg PO BID 09/04/20 02/19/24 History Alendronate Sodium [Fosamax] 70 mg PO FR 02/19/22 02/19/24 History Amitriptyline HCl [Elavil] 20 mg PO HS 02/19/24 02/19/24 History Celecoxib [CeleBREX] 200 mg PO BID 02/19/24 02/19/24 History Cephalexin [Keflex] 250 mg PO BID 02/19/24 02/19/24 History Ergocalciferol (Vitamin D2) 1,250 mcg PO FR 02/19/24 02/19/24 History [Drisdol (50,000 Iu)] Allergies Allergy/AdvReac Type Severity Reaction Status Date / Time Iodinated Contrast Media Allergy Nausea & Verified 02/19/24 21:03 [Iodinated Contrast- Oral Vomiting and IV Dye] Penicillins Allergy Unknown Verified 02/19/24 21:03 Childhood IV DYE AdvReac Nausea & Uncoded 02/19/24 17:03 Vomiting Surgical - Exam Osteopathic Statement: *. No significant issues noted on an osteopathic structural exam other than those noted in the History and Physical/Consult. Vital Signs Temp Pulse Resp BP Pulse Ox 98.7 F 86 18 121/82 96 02/19/24 17:00 02/19/24 17:00 02/19/24 17:00 02/19/24 17:00 02/19/24 17:00 general no acute distress Perivascularly regular rate rhythm Pulmonary nonlabored breathing Abdomen soft nontender nondistended no guarding or rebound tenderness Extremities demonstrates trace edema bilaterally with palpable DP PT pulses Perianal region demonstrates a left-sided induration with erythema Results - Labs 02/20/24 09:33 02/20/24 09:33 Abnormal Lab Results - Last 24 Hours (Table) 02/19/24 02/19/24 02/20/24 Range/Units 19:07 19:07 09:33 WBC 15.0 H 16.3 H (3.8-10.6) k/uL Neutrophils # 11.2 H 14.3 H (1.3-7.7) k/uL Monocytes # 1.1 H (0-1.0) k/uL Chloride (98-107) mmol/L Glucose 112 H (74-99) mg/dL 02/20/24 Range/Units 09:33 WBC (3.8-10.6) k/uL Neutrophils # (1.3-7.7) k/uL Monocytes # (0-1.0) k/uL Chloride 108 H (98-107) mmol/L Glucose 140 H (74-99) mg/dL Diabetes panel 02/19/24 02/20/24 Range/Units 19:07 09:33 Sodium 140 143 (137-145) mmol/L Potassium 4.5 4.8 (3.5-5.1) mmol/L Chloride 106 108 H (98-107) mmol/L Carbon Dioxide 25 25 (22-30) mmol/L BUN 19 18 (9-20) mg/dL Creatinine 0.91 0.74 (0.66-1.25) mg/dL Glucose 112 H 140 H (74-99) mg/dL Calcium 9.7 9.4 (8.4-10.2) mg/dL AST 28 (17-59) U/L ALT 25 (4-49) U/L Alkaline Phosphatase 88 (38-126) U/L Total Protein 7.1 (6.3-8.2) g/dL Albumin 4.4 (3.5-5.0) g/dL Calcium panel 02/19/24 02/20/24 Range/Units 19:07 09:33 Calcium 9.7 9.4 (8.4-10.2) mg/dL Albumin 4.4 (3.5-5.0) g/dL Pituitary panel 02/19/24 02/20/24 Range/Units 19:07 09:33 Sodium 140 143 (137-145) mmol/L Potassium 4.5 4.8 (3.5-5.1) mmol/L Chloride 106 108 H (98-107) mmol/L Carbon Dioxide 25 25 (22-30) mmol/L BUN 19 18 (9-20) mg/dL Creatinine 0.91 0.74 (0.66-1.25) mg/dL Glucose 112 H 140 H (74-99) mg/dL Calcium 9.7 9.4 (8.4-10.2) mg/dL Adrenal panel 02/19/24 02/20/24 Range/Units 19:07 09:33 Sodium 140 143 (137-145) mmol/L Potassium 4.5 4.8 (3.5-5.1) mmol/L Chloride 106 108 H (98-107) mmol/L Carbon Dioxide 25 25 (22-30) mmol/L BUN 19 18 (9-20) mg/dL Creatinine 0.91 0.74 (0.66-1.25) mg/dL Glucose 112 H 140 H (74-99) mg/dL Calcium 9.7 9.4 (8.4-10.2) mg/dL Total Bilirubin 0.6 (0.2-1.3) mg/dL AST 28 (17-59) U/L ALT 25 (4-49) U/L Alkaline Phosphatase 88 (38-126) U/L Total Protein 7.1 (6.3-8.2) g/dL Albumin 4.4 (3.5-5.0) g/dL Assessment and Plan Assessment: 68-year-old male with perianal abscess CTAP demonstrates this on computed tomography scan with enlarged prostate Continue antibiotics Nothing by mouth OR Follow up with primary for enlarged prostate Time with Patient: Less than 30
--- NOTE | 2024-02-20 20:00 | P.OP ---
Date of Procedure: 02/20/24 Preoperative Diagnosis: perianal abscess Postoperative Diagnosis: perianal abscess Procedure(s) Performed: incision and drainage of perianal abscess Surgeon: Dominick Reza Estimated Blood Loss (ml): 15 Indications for Procedure: Perianal abscess Operative Findings: erythema left of the anus Description of Procedure: the patient was brought to the operating suite where he was cleaned and draped in sterile fashion a time out was performed and everyone agreed with the information resided. Next a #15 blade was then used to make an incision along the left perianal region and a hemostat was then used to dissect down to muscle. A large amount of purulent material was encountered and cultured. I then used a suction Yonker to bluntly dissect down to muscle and irrigate the cavity with greater than 250 mL of normal saline. I then replaced this cavity with iodoform packing. The patient was then transported to PACU in stable condition
[2024-02-20] MEDS: BACLOFEN 10 MG TAB PO SCH (21:57)
[2024-02-20] MEDS: AMITRIPTYLINE HCL 10 MG TAB PO SCH (21:57)
[2024-02-20] MEDS: FAMOTIDINE 20 MG TAB PO SCH (21:57)
[2024-02-21 05:48] LABS: African American GFR (CKD) >90 (>60 ml/min/1.73 sqM); Non-African American GFR(CKD) >90 (>60 ml/min/1.73 sqM)
[2024-02-21] MEDS: TAMSULOSIN 0.4 MG CAP.ER.24H PO SCH (08:05)
--- NOTE | 2024-02-21 11:09 | P.PN ---
Subjective Progress Note Date: 02/21/24 Principal diagnosis: Perirectal abscess Patient underwent incision and drainage of left perirectal abscess yesterday. Says his pain is still there but slightly improved. No fevers. Some drainage. Objective - Vital Signs Vital signs: Vital Signs Temp 97.5 F L 02/21/24 07:37 Pulse 53 L 02/21/24 07:37 Resp 17 02/21/24 07:37 BP 109/67 02/21/24 07:37 Pulse Ox 97 02/21/24 07:37 FiO2 Intake & Output 02/20/24 02/21/24 02/21/24 18:59 06:59 18:59 Intake Total 680 590 Output Total 15 Balance 665 590 Intake: IV 200 Oral 480 590 Output: Estimated Blood Loss 15 Other: Voiding Method Toilet Toilet Toilet # Voids 2 2 - Exam Left perianal location with mild induration, mild erythema, wound 1 cm in size, iodophor in place - Labs CBC & Chem 7: 02/20/24 09:33 02/21/24 04:53 Assessment and Plan (1) Perirectal abscess Narrative/Plan: 68-year-old male with perirectal abscess. Doing fairly well after recent incision and drainage. Continue antibiotics. Begin local wound care today. Discharge either later today or tomorrow. Will follow. Current Visit: Yes Status: Acute Code(s): K61.1 - RECTAL ABSCESS SNOMED Code(s): 22139868
[2024-02-21 23:11] VITALS: RESP 16
[2024-02-22] MEDS: VANCOMYCIN TROUGH DUE 1 EACH MISC MISCELLANE ONE (00:35)
[2024-02-22 00:48] LABS: African American GFR (CKD) >90 (>60 ml/min/1.73 sqM); Non-African American GFR(CKD) >90 (>60 ml/min/1.73 sqM)
[2024-02-22 10:45] LABS: Basophils # (A) 0.1 k/uL (0-0.2); Basophils % (A) 1 %; Eosinophils # (A) 0.4 k/uL (0-0.7); Eosinophils % (A) 5 %; HCT 43.1 % (39.0-53.0); HGB 13.9 gm/dL (13.0-17.5); Lymphocytes # (A) 1.8 k/uL (1.0-4.8); Lymphocytes % (A) 20 %; MCH 30.8 pg (25.0-35.0); MCHC 32.4 g/dL (31.0-37.0); MCV 95.1 fL (80.0-100.0); Monocytes # (A) 0.8 k/uL (0-1.0); Monocytes % (A) 9 %; Neutrophils # (A) 5.8 k/uL (1.3-7.7); Neutrophils % (A) 64 %; Platelet Count 241 k/uL (150-450); RBC 4.53 m/uL (4.30-5.90); RDW 12.7 % (11.5-15.5); WBC 9.1 k/uL (3.8-10.6)
[2024-02-22] MEDS: VANCOMYCIN 1,250 MG in SODIUM CHLORIDE 0.9% 250 ML IVPB SCH (11:45)
[2024-02-22] MEDS: HYDROcodone/APAP 5-325MG 1 EACH TAB PO PRN (11:46)
[2024-02-22 12:20] VITALS: BP 145/75; PULSE 66; TEMP 97.2
--- NOTE | 2024-02-22 13:10 | P.DS ---
Providers Date of admission: 02/20/24 00:17 Expected date of discharge: 02/22/24 Attending physician: Anthony Quintana Consults: 02/22/24 08:00 Consult Physician Routine Consulting Provider: Anthony Quintana Consult Reason/Comments: rectal abcess Do you want consulting provider notified?: Already Contacted Primary care physician: Fiona [facility] Course: Discharge diagnosis 1. Perianal abscess status post incision and drainage Hospital course This is a 68-year-old male with a perianal abscess. He is status post incision and drainage. His pain is controlled. He has been up and ambulating. Afebrile. White count has normalized. He is stable for discharge. Please refer to chart for any further details. Physician Assessment Technician note has been reviewed by physician. Signing provider agrees with the documented findings, assessment, and plan of care. Patient Condition at Discharge: Stable Plan - Discharge Summary Discharge Rx Participant: Yes New Discharge Prescriptions: New HYDROcodone/APAP 5-325MG [[place] 5-325] 1 tab PO Q6HR PRN 3 Days #12 tab PRN Reason: Pain Levofloxacin [Levaquin] 500 mg PO DAILY 5 Days #5 tab Continue Tamsulosin HCl [Flomax] 0.4 mg PO DAILY Famotidine [Pepcid] 40 mg PO BID Atorvastatin [Lipitor] 40 mg PO MOWEFR Baclofen 10 mg PO BID Ergocalciferol (Vitamin D2) [Drisdol (50,000 Iu)] 1,250 mcg PO FR Alendronate Sodium [Fosamax] 70 mg PO FR Celecoxib [CeleBREX] 200 mg PO BID Amitriptyline HCl [Elavil] 20 mg PO HS Discontinued Cephalexin [Keflex] 250 mg PO BID Discharge Medication List Tamsulosin HCl [Flomax] 0.4 mg PO DAILY 09/02/17 [History] Atorvastatin [Lipitor] 40 mg PO MOWEFR 09/04/20 [History] Baclofen 10 mg PO BID 09/04/20 [History] Famotidine [Pepcid] 40 mg PO BID 09/04/20 [History] Alendronate Sodium [Fosamax] 70 mg PO FR 02/19/22 [History] Amitriptyline HCl [Elavil] 20 mg PO HS 02/19/24 [History] Celecoxib [CeleBREX] 200 mg PO BID 02/19/24 [History] Ergocalciferol (Vitamin D2) [Drisdol (50,000 Iu)] 1,250 mcg PO FR 02/19/24 [History] HYDROcodone/APAP 5-325MG [[place] 5-325] 1 tab PO Q6HR PRN 3 Days #12 tab 02/22/24 [Rx] Levofloxacin [Levaquin] 500 mg PO DAILY 5 Days #5 tab 02/22/24 [Rx] Follow up Appointment(s)/Referral(s): Fiona Fletcher DO [Primary Care Provider] - 1-2 days Anthony Quintana MD [STAFF PHYSICIAN] - 1 Week Activity/Diet/Wound Care/Special Instructions: No driving while taking [place] No lifting over 10 pounds Shower daily Very light activity until you are reevaluated at your follow up appointment with your surgeon Wound care instructions Remove packing while in the shower. Clean wound with soap and water. Pack wound with Aquacel silver rope daily Discharge Disposition: HOME WITH HOME HEALTH SERVICES
[2024-02-22] MEDS ORDERED: ATORVASTATIN 40 MG TAB PO SCH (21:00)
[2024-02-26] MEDS ORDERED: NON FORMULARY DRUG (Alendronate Sodium [Fosamax] 70 MG Tablet) PO SCH (09:00)
[2024-02-26] MEDS ORDERED: ERGOCALCIFEROL 1,250 MCG (50,000 IU) CAPSULE PO SCH (09:00)
== END 2024-02-22 14:33 | disposition home health service (06) ==
LOC: EC 16:44 → 5NMEDONC 02-20 00:17 → INTOOBSV 02-20 00:17 → 5NMEDONC 02-20 00:47
PROVIDERS: ADMIT Surgery; ATTEND Surgery
DX: K61.0 Anal abscess (principal); N40.0 Benign prostatic hyperplasia without lower urinary tract symptoms; K21.9 Gastro-esophageal reflux disease without esophagitis; F17.200 Nicotine dependence, unspecified, uncomplicated; Z93.3 Colostomy status; Z79.899 Other long term (current) drug therapy; Z79.83 Long term (current) use of bisphosphonates; Z79.1 Long term (current) use of non-steroidal anti-inflammatories (NSAID); Z88.0 Allergy status to penicillin
CPT/HCPCS: 46050; 96376 ×2; 96361 ×3; 96366 ×3; 96375 ×2; 96365; 99285; 36415; 86900; 86901; 80053; 80048; 82565 ×2; 85025 ×3; 80202; 85610; 86850; 87070; 87205; 87075; 87077; 87186; 72193; G0378 ×4; J2250; J3370 ×3; J1200; J2405; J2001; J3010; J3490; J2270; J1170 ×2; J2704; J2919

== ENCOUNTER 2024-03-04 05:41 | Emergency (ER) | payer MEDICARE, OTHER ==
--- NOTE | 2024-03-04 06:27 | ED ---
Chest Pain HPI - General Chief Complaint: Chest Pain Stated Complaint: Chest pain Time Seen by Provider: 03/04/24 05:56 Source: patient, RN notes reviewed Mode of arrival: wheelchair Limitations: no limitations - History of Present Illness Initial Comments: This is a 68-year-old male who presents to the emergency department for chest pain/abdominal pain. States that over the last couple of days he has had intermittent episodes of sharp pain in the left lower side of his chest. These episodes seem to resolve throughout the day, and states that they almost feel like gas pain. However over the night the pain became more severe and he felt like he could not get it to go away. Denies any shortness of breath or radiation of pain into the back or extremities. Denies any nausea or vomiting. Denies any personal or family history of cardiac problems. MD Complaint: chest pain - Related Data Home Medications Medication Instructions Recorded Confirmed Tamsulosin HCl [Flomax] 0.4 mg PO DAILY 09/02/17 03/04/24 Atorvastatin [Lipitor] 40 mg PO MOWEFR 09/04/20 03/04/24 Baclofen 10 mg PO BID 09/04/20 03/04/24 Famotidine [Pepcid] 40 mg PO BID 09/04/20 03/04/24 Alendronate Sodium [Fosamax] 70 mg PO FR 02/19/22 03/04/24 Amitriptyline HCl [Elavil] 20 mg PO HS 02/19/24 03/04/24 Celecoxib [CeleBREX] 200 mg PO BID 02/19/24 03/04/24 Ergocalciferol (Vitamin D2) 1,250 mcg PO FR 02/19/24 03/04/24 [Drisdol (50,000 Iu)] Previous Rx's Medication Instructions Recorded HYDROcodone/APAP 5-325MG [[place] 1 tab PO Q6HR PRN 3 Days #12 tab 02/22/24 5-325] Allergies Allergy/AdvReac Type Severity Reaction Status Date / Time Penicillins Allergy Unknown Verified 03/04/24 10:51 Childhood Iodinated Contrast Media AdvReac Nausea & Verified 03/04/24 10:51 [Iodinated Contrast- Oral Vomiting and IV Dye] IV DYE AdvReac Nausea & Uncoded 03/04/24 10:51 Vomiting Review of Systems ROS Statement: Those systems with pertinent positive or pertinent negative responses have been documented in the HPI. ROS Other: All systems not noted in ROS Statement are negative. Past Medical History Past Medical History: GERD/Reflux, Osteoarthritis (OA), Prostate Disorder Additional Past Medical History / Comment(s): DIVERTICULITIS. hx ruptured colon November 21, 2015. OA NECK, PINCHED NERVE. History of Any Multi-Drug Resistant Organisms: None Reported Past Surgical History: Bowel Resection, Orthopedic Surgery, Tonsillectomy Additional Past Surgical History / Comment(s): colonoscopy. lt shoulder sx. orif rt elbow. colostomy, THEN REVERSAL. PAIN CLINIC PROCEDURE Past Anesthesia/Blood Transfusion Reactions: No Reported Reaction Past Psychological History: No Psychological Hx Reported Smoking Status: Current some day smoker Past Alcohol Use History: Occasional Past Drug Use History: None Reported - Past Family History Mother Family Medical History: CVA/TIA General Exam Limitations: no limitations General appearance: alert, in no apparent distress Head exam: Present: atraumatic, normocephalic, normal inspection Respiratory exam: Present: normal lung sounds bilaterally. Absent: respiratory distress, wheezes, rales, rhonchi, stridor Cardiovascular Exam: Present: regular rate, normal rhythm, normal heart sounds. Absent: systolic murmur, diastolic murmur, rubs, gallop, clicks GI/Abdominal exam: Present: soft, normal bowel sounds. Absent: distended, tenderness, guarding, rebound, rigid Neurological exam: Present: alert, oriented X3, CN II-XII intact Psychiatric exam: Present: normal affect, normal mood Skin exam: Present: warm, dry, intact, normal color. Absent: rash Course Vital Signs 03/04/24 03/04/24 03/04/24 05:52 07:30 08:15 Temperature 98 F 97.6 F Pulse Rate 68 57 L 53 L Respiratory 18 20 17 Rate Blood Pressure 144/87 123/74 157/83 O2 Sat by Pulse 97 98 96 Oximetry 03/04/24 03/04/24 03/04/24 09:01 10:02 11:07 Temperature 97.7 F Pulse Rate 56 L 63 60 Respiratory 17 17 18 Rate Blood Pressure 127/68 115/83 124/81 O2 Sat by Pulse 98 96 95 Oximetry Chest Pain MDM - [facility] This is a 68 year old male who presents to the emergency department for chest pain. Was pt. sent in by a medical professional or institution? @ -No Did you speak to anyone other than the patient for history? @ -No Did you review nursing and triage notes? @ -Yes, and I agree, it is accurate with regards to the patient's symptoms. Were old charts reviewed? @ -No Differential Diagnosis? @ -Differential Chest Pain: Stable Angina, Unstable Angina, STEMI, NSTEMI Aortic Dissection, Pneumothorax, Musculoskeletal, Esophageal Spasm GERD, Cholecystitis, Pancreatitis, Zoster, this is not meant to be an all-inclusive list. EKG interpreted by me (3pts min.)? @ -EKG interpreted by me demonstrating the following: Sinus rhythm. Ventricular rate 62 bpm, ND interval 164 ms, QRS duration 111 ms, QTc 380 ms. X-rays interpreted by me (1pt min.)? @ -Chest x-ray obtained, my interpretation identifies no localized consolidations or infiltrates. CT interpreted by me (1pt min.)? @ -Not obtained U/S interpreted by me (1pt. min.)? @ -Not obtained What testing was considered but not performed? (CT, X-rays, U/S, labs)? Why? @ -None What meds were considered but not given? Why? @ -None Did you discuss the management of the patient with other professionals? @ -No Did you reconcile home meds? @ -No Was smoking cessation discussed for >3mins.? @ -No Was critical care preformed (if so, how long)? @ -No Were there social determinants of health that impacted care today? How? (Homelessness, low income, unemployed, alcoholism, drug addiction, transportation, low edu. Level, literacy, decrease access to med. care, usp, rehab)? @ -No Was there de-escalation of care discussed even if they declined? (Discuss DNR or withdrawal of care, Hospice)? @ -No What co-morbidities impacted this encounter? (DM, HTN, Smoking, COPD, CAD, Cancer, CVA, Hep., AIDS, mental health diagnosis, sleep apnea, morbid obesity)? @ -GERD Was patient admitted / discharged? @ -Discharged. We initially did a trial of nitroglycerin and aspirin, however the patient had no relief in symptoms. He was subsequently given a GI cocktail. Lab work unremarkable including a negative troponin. Chest x-ray reveals no acute process. Patient had no relief from the GI cocktail either, and was subsequently given Toradol, morphine, and Norflex and had resolution of symptoms. We discussed repeat troponin versus admission for cardiac observation. Patient requested the repeat troponin and discharge home. Troponin repeated at the 3-hour leo, which was also negative. His symptoms remain well-controlled. Advised trying [id number] simethicone to see if that helps with his discomfort and close follow-up with his primary care provider. Strict return parameters reviewed as well and the patient was discharged home in stable condition. Undiagnosed new problem with uncertain prognosis? @ -None Drug Therapy requiring intensive monitoring for toxicity (Heparin, Nitro, Insulin, Cardizem)? @ -None Were any procedures done? @ -None Diagnosis/symptom? @ -Chest pain Acute, or Chronic, or Acute on Chronic? @ -Acute Uncomplicated (without systemic symptoms) or Complicated (systemic symptoms)? @ -Uncomplicated Side effects of treatment? @ -None Exacerbation, Progression, or Severe Exacerbation] @ -Not applicable Poses a threat to life or bodily function? @ -Unlikely Return precautions reviewed in depth, the patient is instructed to return to the emergency department with any new, worsening, or concerning symptoms. Patient verbalized understanding. This case was discussed in detail with the attending ED physician, Dr. Nguyen. Presentation, findings, and treatment plan discussed in detail as well. Disposition Clinical Impression: Chest pain Disposition: HOME SELF-CARE Instructions (If sedation given, give patient instructions): Chest Pain (ED), Noncardiac Chest Pain (ED) Additional Instructions: Return to the emergency department with any new, worsening, or concerning symptoms. Try taking [id number] Gas-X or Tums to help with your symptoms. Follow up with your primary care provider in 1-2 days. Is patient prescribed a controlled substance at d/c from ED?: No Referrals: Fiona Fletcher DO [Primary Care Provider] - 1-2 days Time of Disposition: 10:46
[2024-03-04] MEDS: SODIUM CHLORIDE 0.9% 1,000 ML IV STA (06:29)
[2024-03-04] MEDS: ASPIRIN 81 MG PO STA (06:30)
[2024-03-04] MEDS: NITROGLYCERIN SL TABS 0.4 MG TAB SUBLINGUAL STA (06:30)
[2024-03-04 06:39] LABS: Basophils # (A) 0.1 k/uL (0-0.2); Basophils % (A) 1 %; Eosinophils # (A) 0.7 k/uL (0-0.7); Eosinophils % (A) 7 %; HCT 42.6 % (39.0-53.0); HGB 14.2 gm/dL (13.0-17.5); Lymphocytes # (A) 2.1 k/uL (1.0-4.8); Lymphocytes % (A) 19 %; MCH 30.7 pg (25.0-35.0); MCHC 33.3 g/dL (31.0-37.0); Mean Platelet Volume 7.8; Monocytes # (A) 0.7 k/uL (0-1.0); Monocytes % (A) 7 %; Neutrophils # (A) 6.9 k/uL (1.3-7.7); Neutrophils % (A) 65 %; Platelet Count 222 k/uL (150-450); RBC 4.63 m/uL (4.30-5.90); RDW 13.1 % (11.5-15.5); WBC 10.7 k/uL (3.8-10.6)
[2024-03-04 06:51] LABS: Partial Thromboplastin Time 26.6 sec (22.0-30.0); Prothrombin Time 10.6 sec (10.0-12.5)
[2024-03-04 06:59] LABS: ALT 21 U/L (4-49); AST 22 U/L (17-59); African American GFR (CKD) >90 (>60 ml/min/1.73 sqM); Albumin 3.6 g/dL (3.5-5.0); Alkaline Phosphatase 68 U/L (38-126); Amylase 51 U/L (30-110); Anion Gap 5 mmol/L; Blood Urea Nitrogen 18 mg/dL (9-20); Carbon Dioxide 23 mmol/L (22-30); Chloride 111 mmol/L (98-107); Glucose 101 mg/dL (74-99); Lipase 79 U/L (23-300); Non-African American GFR(CKD) >90 (>60 ml/min/1.73 sqM); Potassium 4.1 mmol/L (3.5-5.1); Sodium 139 mmol/L (137-145); Total Bilirubin 0.3 mg/dL (0.2-1.3)
[2024-03-04] MEDS: MAG HYDROX/AL HYDROX/SIMETH 30 ML, HYOSCYAMINE ELIXIR 10 ML, LIDOCAINE VISCOUS 2% 10 ML PO STA (07:01)
--- NOTE | 2024-03-04 07:32 | XR ---
EXAMINATION TYPE: XR chest 2V DATE OF EXAM: 03/04/2024 COMPARISON: None INDICATION: Chest pain TECHNIQUE: Frontal and lateral views of the chest are obtained. FINDINGS: The heart size is normal. The pulmonary vasculature is normal. The lungs are clear. IMPRESSION: 1. No acute pulmonary process.
[2024-03-04] MEDS: KETOROLAC 15 MG/ML 1 ML VIAL IVP STA (08:15)
[2024-03-04] MEDS: ORPHENADRINE 30 MG/ML 2 ML VIAL IVP STA (08:17)
[2024-03-04] MEDS: MORPHINE SULFATE 4 MG/ML SYRINGE IVP STA (08:18)
[2024-03-04] MEDS: ACET/COD 300 MG/30 MG STARTER PACK 6 TAB BTL PO STA (11:09)
[2024-03-04 11:28] VITALS: BP 124/81; PULSE 60; RESP 18; TEMP 97.7
== END 2024-03-04 11:15 | disposition home or self-care (01) ==
LOC: EC 05:41
DX: R07.89 Other chest pain (principal); K21.9 Gastro-esophageal reflux disease without esophagitis; F17.200 Nicotine dependence, unspecified, uncomplicated; Z88.0 Allergy status to penicillin; Z91.041 Radiographic dye allergy status
CPT/HCPCS: 36415; 93005; 80053; 82150; 83690; 83735; 84484; 85025; 85610; 85730; 71046; 99285; 96374; 96375 ×2; 96361; J2270; J2360; J1885

== ENCOUNTER 2024-03-07 18:34 | Emergency (ER) | payer MEDICARE, OTHER ==
[2024-03-07 19:08] VITALS: TEMP 97.8
--- NOTE | 2024-03-07 19:33 | ED ---
General Adult HPI - General Chief complaint: Chest Pain Stated complaint: chest pain Time Seen by Provider: 03/07/24 18:55 Source: patient, EMS, RN notes reviewed, old records reviewed Mode of arrival: EMS Limitations: no limitations - History of Present Illness Initial comments: This is a 68-year-old male who presents to the emergency department stating he was here on Thursday because of chest pain. Patient states on Thursday he started developing a rash from the front of his chest to the back which caused some sharp pains at times and it is extremely painful to the point where he is finding it difficult to sleep. Patient denies any difficulty breathing shortness of breath. Patient denies any nausea vomiting or diaphoretic episodes. Patient denies any risk factors for cardiac disease. Patient went to see his primary medical care doctor today and they told him he had shingles and they gave him medicine to go home with but he states the pain got worse so he came to the emergency department. - Related Data Home Medications Medication Instructions Recorded Confirmed Tamsulosin HCl [Flomax] 0.4 mg PO DAILY 09/02/17 03/04/24 Atorvastatin [Lipitor] 40 mg PO MOWEFR 09/04/20 03/04/24 Baclofen 10 mg PO BID 09/04/20 03/04/24 Famotidine [Pepcid] 40 mg PO BID 09/04/20 03/04/24 Alendronate Sodium [Fosamax] 70 mg PO FR 02/19/22 03/04/24 Amitriptyline HCl [Elavil] 20 mg PO HS 02/19/24 03/04/24 Celecoxib [CeleBREX] 200 mg PO BID 02/19/24 03/04/24 Ergocalciferol (Vitamin D2) 1,250 mcg PO FR 02/19/24 03/04/24 [Drisdol (50,000 Iu)] Previous Rx's Medication Instructions Recorded HYDROcodone/APAP 5-325MG [[place] 1 tab PO Q6HR PRN 3 Days #12 tab 02/22/24 5-325] Ketorolac [Toradol] 10 mg PO Q6HR #15 tab 03/07/24 Allergies Allergy/AdvReac Type Severity Reaction Status Date / Time Penicillins Allergy Unknown Verified 03/07/24 18:46 Childhood Iodinated Contrast Media AdvReac Nausea & Verified 03/07/24 18:46 [Iodinated Contrast- Oral Vomiting and IV Dye] IV DYE AdvReac Nausea & Uncoded 03/07/24 18:46 Vomiting Review of Systems ROS Statement: Those systems with pertinent positive or pertinent negative responses have been documented in the HPI. ROS Other: All systems not noted in ROS Statement are negative. Past Medical History Past Medical History: GERD/Reflux, Osteoarthritis (OA), Prostate Disorder Additional Past Medical History / Comment(s): DIVERTICULITIS. hx ruptured colon November 21, 2015. OA NECK, PINCHED NERVE. History of Any Multi-Drug Resistant Organisms: None Reported Past Surgical History: Bowel Resection, Orthopedic Surgery, Tonsillectomy Additional Past Surgical History / Comment(s): colonoscopy. lt shoulder sx. orif rt elbow. colostomy, THEN REVERSAL. PAIN CLINIC PROCEDURE Past Anesthesia/Blood Transfusion Reactions: No Reported Reaction Past Psychological History: No Psychological Hx Reported Smoking Status: Current some day smoker Past Alcohol Use History: Occasional Past Drug Use History: None Reported - Past Family History Mother Family Medical History: CVA/TIA General Exam - General Exam Comments Initial Comments: GENERAL: Patient is well-developed and well-nourished. Patient is nontoxic and well- hydrated and is in moderate distress. ENT: Neck is soft and supple. No significant lymphadenopathy is noted. Oropharynx is clear. Moist mucous membranes. Neck has full range of motion without eliciting any pain. EYES: The sclera were anicteric and conjunctiva were pink and moist. Extraocular movements were intact and pupils were equal round and reactive to light. Eyelids were unremarkable. PULMONARY: Unlabored respirations. Good breath sounds bilaterally. No audible rales rhonchi or wheezing was noted. CARDIOVASCULAR: There is a regular rate and rhythm without any murmurs gallops or rubs. ABDOMEN: Soft and nontender with normal bowel sounds. SKIN: Patient has a classic shingles rash from the anterior left chest around to his back. NEUROLOGIC: Patient is alert and oriented x3. Cranial nerves II through XII are grossly intact. Motor and sensory are also intact. Normal speech, volume and content. Symmetrical smile. MUSCULOSKELETAL: Normal extremities with adequate strength and full range of motion. No lower extremity swelling or edema. No calf tenderness. LYMPHATICS: No significant lymphadenopathy is noted PSYCHIATRIC: Normal psychiatric evaluation. Limitations: no limitations Course Vital Signs 03/07/24 03/07/24 03/07/24 18:40 19:35 21:18 Temperature 97.8 F Pulse Rate 62 64 56 L Respiratory 22 19 18 Rate Blood Pressure 124/107 145/123 135/93 O2 Sat by Pulse 98 97 Oximetry Medical Decision Making - Medical Decision Making EKG is interpreted by myself but EKG shows a sinus rhythm at 61 bpm parables 162 QRS 108 QT interval 376 QTc is 378. Patient's EKG shows no ST segment ovation or depression. Was pt. sent in by a medical professional or institution (, [facility], [employer], urgent c are, hospital, or shelter...) When possible be specific @ -No Did you speak to anyone other than the patient for history (EMS, parent, family, police, friend...)? What history was obtained from this source @ -No Did you review nursing and triage notes (agree or disagree)? Why? @ -I reviewed and agree with nursing and triage notes Were old charts reviewed (outside hosp., previous admission, EMS record, old EKG, old radiological studies, urgent care reports/EKG's, shelter records)? Report findings @ -No old charts were reviewed Differential Diagnosis (chest pain, altered mental status, abdominal pain women, abdominal pain men, vaginal bleeding, weakness, fever, dyspnea, syncope, h eadache, dizziness, GI bleed, back pain, seizure, CVA, palpatations, mental health, musculoskeletal)? @ -Differential Chest Pain: Stable Angina, Unstable Angina, STEMI, NSTEMI Aortic Dissection, Pneumothorax, Musculoskeletal, Esophageal Spasm GERD, Cholecystitis, Pancreatitis, Zoster, this is not meant to be an all-inclusive list. EKG interpreted by me (3pts min.). @ -As above X-rays interpreted by me (1pt min.). @ -Chest x-ray shows no acute abnormality CT interpreted by me (1pt min.). @ -None done U/S interpreted by me (1pt. min.). @ -None done What testing was considered but not performed or refused? (CT, X-rays, U/S, labs)? Why? @ -None What meds were considered but not given or refused? Why? @ -None Did you discuss the management of the patient with other professionals (professionals i.e. , [facility], [employer], lab, RT, psych nurse, social sciences instructor, director of collections, teacher, unemployment insurance hearing officer, caser)? Give summary @ -No Was smoking cessation discussed for >3mins.? @ -No Was critical care preformed (if so, how long)? @ -No Were there social determinants of health that impacted care today? How? (Homelessness, low income, unemployed, alcoholism, drug addiction, transportation, low edu. Level, literacy, decrease access to med. care, senior living, rehab)? @ -No Was there de-escalation of care discussed even if they declined (Discuss DNR or withdrawal of care, Hospice)? DNR status @ -No What co-morbidities impacted this encounter? (DM, HTN, Smoking, COPD, CAD, Cancer, CVA, ARF, Chemo, Hep., AIDS, mental health diagnosis, sleep apnea, morbid obesity)? @ -None Was patient admitted / discharged? Hospital course, mention meds given and route, prescriptions, significant lab abnormalities, going to OR and other pertinent info. @ -Patient's blood work showed no acute abnormality. Patient's chest x-ray showed no acute normality. Patient was having sharp lancing chest pain consistent with shingles. Patient's been having pain since Thursday rash appeared on Thursday. Patient has already been started on valacyclovir and gabapentin. Patient was given Toradol and Dilaudid in the emergency department was feeling considerably better Undiagnosed new problem with uncertain prognosis? @ -No Drug Therapy requiring intensive monitoring for toxicity (Heparin, Nitro, Insulin, Cardizem)? @ -No Were any procedures done? @ -No Diagnosis/symptom? @ -Default Acute, or Chronic, or Acute on Chronic? @ -Shingles acute Uncomplicated (without systemic symptoms) or Complicated (systemic symptoms)? @ -Complicated Side effects of treatment? @ -No Exacerbation, Progression, or Severe Exacerbation? @ -No Poses a threat to life or bodily function? How? (Chest pain, [place], [place], pneumonia, PE, COPD, DKA, ARF, appy, cholecystitis, CVA, Diverticulitis, Homicidal, Suicidal, threat to staff... and all critical care pts) @ -No - Lab Data Result diagrams: 03/07/24 19:34 03/07/24 19:34 Lab Results 03/07/24 03/07/24 03/07/24 Range/Units 19:34 19:34 19:34 WBC 8.9 (3.8-10.6) k/uL RBC 4.54 (4.30-5.90) m/uL Hgb 13.8 (13.0-17.5) gm/dL Hct 42.0 (39.0-53.0) % MCV 92.3 (80.0-100.0) fL MCH 30.4 (25.0-35.0) pg MCHC 32.9 (31.0-37.0) g/dL RDW 13.2 (11.5-15.5) % Plt Count 255 (150-450) k/uL MPV 8.3 Neutrophils % 74 % Lymphocytes % 12 % Monocytes % 7 % Eosinophils % 4 % Basophils % 1 % Neutrophils # 6.6 (1.3-7.7) k/uL Lymphocytes # 1.1 (1.0-4.8) k/uL Monocytes # 0.6 (0-1.0) k/uL Eosinophils # 0.4 (0-0.7) k/uL Basophils # 0.1 (0-0.2) k/uL PT 10.8 (10.0-12.5) sec INR 1.0 (<1.2) APTT 26.4 (22.0-30.0) sec Sodium 138 (137-145) mmol/L Potassium 4.3 (3.5-5.1) mmol/L Chloride 109 H (98-107) mmol/L Carbon Dioxide 23 (22-30) mmol/L Anion Gap 6 mmol/L BUN 14 (9-20) mg/dL Creatinine 0.77 (0.66-1.25) mg/dL Est GFR (CKD-EPI)AfAm >90 (>60 ml/min/1.73 sqM) Est GFR (CKD-EPI)NonAf >90 (>60 ml/min/1.73 sqM) Glucose 112 H (74-99) mg/dL Calcium 9.1 (8.4-10.2) mg/dL Magnesium 2.2 (1.6-2.3) mg/dL Total Bilirubin 0.5 (0.2-1.3) mg/dL AST 20 (17-59) U/L ALT 18 (4-49) U/L Alkaline Phosphatase 62 (38-126) U/L Troponin I (0.000-0.034) ng/mL Total Protein 6.0 L (6.3-8.2) g/dL Albumin 3.8 (3.5-5.0) g/dL 03/07/24 Range/Units 19:34 WBC (3.8-10.6) k/uL RBC (4.30-5.90) m/uL Hgb (13.0-17.5) gm/dL Hct (39.0-53.0) % MCV (80.0-100.0) fL MCH (25.0-35.0) pg MCHC (31.0-37.0) g/dL RDW (11.5-15.5) % Plt Count (150-450) k/uL MPV Neutrophils % % Lymphocytes % % Monocytes % % Eosinophils % % Basophils % % Neutrophils # (1.3-7.7) k/uL Lymphocytes # (1.0-4.8) k/uL Monocytes # (0-1.0) k/uL Eosinophils # (0-0.7) k/uL Basophils # (0-0.2) k/uL PT (10.0-12.5) sec INR (<1.2) APTT (22.0-30.0) sec Sodium (137-145) mmol/L Potassium (3.5-5.1) mmol/L Chloride (98-107) mmol/L Carbon Dioxide (22-30) mmol/L Anion Gap mmol/L BUN (9-20) mg/dL Creatinine (0.66-1.25) mg/dL Est GFR (CKD-EPI)AfAm (>60 ml/min/1.73 sqM) Est GFR (CKD-EPI)NonAf (>60 ml/min/1.73 sqM) Glucose (74-99) mg/dL Calcium (8.4-10.2) mg/dL Magnesium (1.6-2.3) mg/dL Total Bilirubin (0.2-1.3) mg/dL AST (17-59) U/L ALT (4-49) U/L Alkaline Phosphatase (38-126) U/L Troponin I <0.012 (0.000-0.034) ng/mL Total Protein (6.3-8.2) g/dL Albumin (3.5-5.0) g/dL Disposition Clinical Impression: Shingles Disposition: HOME SELF-CARE Condition: Good Instructions (If sedation given, give patient instructions): Shingles (ED) Additional Instructions: Patient should apply some capsaicin cream onto the area pain Patient should continue taking valacyclovir. Patient should take Toradol as prescribed. Patient should take gabapentin as prescribed. Prescriptions: Ketorolac [Toradol] 10 mg PO Q6HR #15 tab Is patient prescribed a controlled substance at d/c from ED?: No Referrals: Fiona Fletcher DO [Primary Care Provider] - 1-2 days Time of Disposition: 21:03
[2024-03-07] MEDS: KETOROLAC 15 MG/ML 1 ML VIAL IVP STA (19:38)
[2024-03-07] MEDS: HYDROmorphone 0.5 MG/0.5 ML SYRINGE IVP STA (19:42)
[2024-03-07 19:56] LABS: Basophils # (A) 0.1 k/uL (0-0.2); Basophils % (A) 1 %; Eosinophils # (A) 0.4 k/uL (0-0.7); Eosinophils % (A) 4 %; HGB 13.8 gm/dL (13.0-17.5); Lymphocytes # (A) 1.1 k/uL (1.0-4.8); Lymphocytes % (A) 12 %; MCH 30.4 pg (25.0-35.0); MCHC 32.9 g/dL (31.0-37.0); MCV 92.3 fL (80.0-100.0); Mean Platelet Volume 8.3; Monocytes # (A) 0.6 k/uL (0-1.0); Monocytes % (A) 7 %; Neutrophils # (A) 6.6 k/uL (1.3-7.7); Neutrophils % (A) 74 %; Platelet Count 255 k/uL (150-450); RBC 4.54 m/uL (4.30-5.90); RDW 13.2 % (11.5-15.5); WBC 8.9 k/uL (3.8-10.6)
[2024-03-07 20:07] LABS: Partial Thromboplastin Time 26.4 sec (22.0-30.0); Prothrombin Time 10.8 sec (10.0-12.5)
[2024-03-07 20:09] LABS: ALT 18 U/L (4-49); AST 20 U/L (17-59); African American GFR (CKD) >90 (>60 ml/min/1.73 sqM); Albumin 3.8 g/dL (3.5-5.0); Alkaline Phosphatase 62 U/L (38-126); Anion Gap 6 mmol/L; Blood Urea Nitrogen 14 mg/dL (9-20); Calcium 9.1 mg/dL (8.4-10.2); Carbon Dioxide 23 mmol/L (22-30); Chloride 109 mmol/L (98-107); Glucose 112 mg/dL (74-99); Magnesium 2.2 mg/dL (1.6-2.3); Non-African American GFR(CKD) >90 (>60 ml/min/1.73 sqM); Potassium 4.3 mmol/L (3.5-5.1); Sodium 138 mmol/L (137-145); Total Bilirubin 0.5 mg/dL (0.2-1.3)
--- NOTE | 2024-03-07 20:48 | XR ---
EXAMINATION TYPE: XR chest 2V DATE OF EXAM: 03/07/2024 COMPARISON: 03/04/2024 HISTORY: Chest pain TECHNIQUE: Frontal and lateral views of the chest are obtained. FINDINGS: There is mild table diffuse interstitial prominence/reticulation which could reflect chronic intersti tial changes or an acute process such as pulmonary edema or interstitial pneumonia. The heart size is normal. There is no pleural effusion or pneumothorax. There is no airspace consolidation. The osseous structures are intact IMPRESSION: No change in the diffuse mild interstitial process as described above. These represent e ither chronic changes or an acute process as described above. Short-term follow-up is recommended
[2024-03-07] MEDS: ACET/COD 300 MG/30 MG STARTER PACK 6 TAB BTL PO STA (21:19)
[2024-03-07 21:43] VITALS: BP 135/93; PULSE 56; RESP 18
== END 2024-03-07 21:35 | disposition home or self-care (01) ==
LOC: EC 18:34
DX: B02.9 Zoster without complications (principal); F17.200 Nicotine dependence, unspecified, uncomplicated; Z88.0 Allergy status to penicillin; Z91.041 Radiographic dye allergy status
CPT/HCPCS: 36415; 93005; 80053; 83735; 84484; 85025; 85610; 85730; 71046; 99285; 96374; 96375; J1885; J1170

== ENCOUNTER 2024-07-30 07:57 | Emergency (ER) | payer MEDICARE, OTHER ==
[2024-07-30 08:11] VITALS: RESP 18; TEMP 97.9
[2024-07-30] MEDS: LIDOCAINE 2%-EPI 1:100,000 20 ML VIAL SQ STA (08:47)
--- NOTE | 2024-07-30 09:19 | ED ---
General Adult HPI - General Chief complaint: Recheck/Abnormal Lab/Rx Stated complaint: Post op bleeding stitches Time Seen by Provider: 07/30/24 08:35 Source: patient, RN notes reviewed, old records reviewed Mode of arrival: ambulatory Limitations: no limitations - History of Present Illness Initial comments: Patient is a 68-year-old male with past medical history remarkable for GERD, diverticulitis, prior fistula s/p repair in February 2023. Presents emergency department over concern for fistula site bleeding. His PCP, Dr. Fletcher recently opened the fistula site because it looks that there was a open pocket of something there and did not heal completely. Deep as well as superficial sutures placed by Dr. Fletcher patient was discharged home. This was done on Thursday. Patient believes he may have popped the sutures as he began bleeding from the site this morning. Presents for further evaluation. Complains of back pain at the site. Is not on blood thinners. Has no other acute complaints at this time. Presents for further evaluation. - Related Data Home Medications Medication Instructions Recorded Confirmed Tamsulosin HCl [Flomax] 0.4 mg PO DAILY 09/02/17 03/04/24 Atorvastatin [Lipitor] 40 mg PO MOWEFR 09/04/20 03/04/24 Baclofen 10 mg PO BID 09/04/20 03/04/24 Famotidine [Pepcid] 40 mg PO BID 09/04/20 03/04/24 Alendronate Sodium [Fosamax] 70 mg PO FR 02/19/22 03/04/24 Amitriptyline HCl [Elavil] 20 mg PO HS 02/19/24 03/04/24 Celecoxib [CeleBREX] 200 mg PO BID 02/19/24 03/04/24 Ergocalciferol (Vitamin D2) 1,250 mcg PO FR 02/19/24 03/04/24 [Drisdol (50,000 Iu)] Previous Rx's Medication Instructions Recorded HYDROcodone/APAP 5-325MG [[place] 1 tab PO Q6HR PRN 3 Days #12 tab 02/22/24 5-325] Ketorolac [Toradol] 10 mg PO Q6HR #15 tab 03/07/24 Sulfamethox-Tmp 800-160Mg [Bactrim 1 tab PO Q12HR 7 Days #14 tab 07/30/24 DS 800-160 mg] Allergies Allergy/AdvReac Type Severity Reaction Status Date / Time Penicillins Allergy Unknown Verified 07/30/24 08:11 Childhood Iodinated Contrast Media AdvReac Nausea & Verified 07/30/24 08:11 [Iodinated Contrast- Oral Vomiting and IV Dye] IV DYE AdvReac Nausea & Uncoded 07/30/24 08:11 Vomiting Review of Systems ROS Statement: Those systems with pertinent positive or pertinent negative responses have been documented in the HPI. Review of Systems: CONST: Denies fever EYES: Denies blurry vision ENT: Denies nasal congestion C/V: Denies Chest pain RESP: Denies shortness of breath GI: Denies abdominal pain : Denies dysuria SKIN: Endorses bleeding wound on left buttock MSK: Denies joint pain. NEURO: Denies headache ROS Other: All systems not noted in ROS Statement are negative. Past Medical History Past Medical History: GERD/Reflux, Osteoarthritis (OA), Prostate Disorder Additional Past Medical History / Comment(s): DIVERTICULITIS. hx ruptured colon November 21, 2015. OA NECK, PINCHED NERVE. History of Any Multi-Drug Resistant Organisms: None Reported Past Surgical History: Bowel Resection, Orthopedic Surgery, Tonsillectomy Additional Past Surgical History / Comment(s): colonoscopy. lt shoulder sx. orif rt elbow. colostomy, THEN REVERSAL. PAIN CLINIC PROCEDURE Past Anesthesia/Blood Transfusion Reactions: No Reported Reaction Past Psychological History: No Psychological Hx Reported Smoking Status: Current some day smoker Past Alcohol Use History: Occasional Past Drug Use History: None Reported - Past Family History Mother Family Medical History: CVA/TIA General Exam - General Exam Comments Initial Comments: General: Appears in mild discomfort. HEAD: Normal with no signs of head trauma. EYES: EOMI. ENT: Hearing grossly intact. RESPIRATORY: No respiratory distress. C/V: Regular rate and rhythm. ABD: Abdomen is nondistended. EXT: No obvious deformity. SKIN: On rectal exam which was performed in the presence of a staff member, patient has a 3 to 4 cm linear laceration from recent minor surgical procedure performed by his PCP. It is open. Not significantly bleeding at this time. No obvious suture identified. No pus or drainage other than clotted blood. No surrounding erythema. NEURO: Alert and oriented. Limitations: no limitations Course Vital Signs 07/30/24 08:08 Temperature 97.9 F Pulse Rate 66 Respiratory 18 Rate Blood Pressure 129/87 O2 Sat by Pulse 97 Oximetry Procedures - Laceration Laceration #1 Consent Obtained: verbal consent Indication: laceration Site: buttock Size (cm): 3 Description: linear Depth: simple, single layer Anesthetic Used: lidocaine 2%, with epi Anesthesia Technique: local infiltration Amount (mls): 4 Pre-repair: wound explored, irrigated extensively, deep structures intact Type of Sutures: nylon Size of Sutures: 4-0 Number of Sutures: 1 Technique: horizontal mattress Patient Tolerated Procedure: well, no complications Medical Decision Making - Medical Decision Making Was pt. sent in by a medical professional or institution (, HAILY, CORE MAN, urgent care, hospital, or fpc...) When possible be specific @ -No Did you speak to anyone other than the patient for history (EMS, parent, family, police, friend...)? What history was obtained from this source @ -No Did you review nursing and triage notes (agree or disagree)? Why? @ -I reviewed and agree with nursing and triage notes Were old charts reviewed (outside hosp., previous admission, EMS record, old EKG, old radiological studies, urgent care reports/EKG's, fpc records)? Report findings @ -No old charts were reviewed Differential Diagnosis (chest pain, altered mental status, abdominal pain women, abdominal pain men, vaginal bleeding, weakness, fever, dyspnea, syncope, headache, dizziness, GI bleed, back pain, seizure, CVA, palpatations, mental health, musculoskeletal)? @ -Open wound, postop complication, cellulitis. This list is not all inclusive. EKG interpreted by me (3pts min.). @ -None done X-rays interpreted by me (1pt min.). @ -None done CT interpreted by me (1pt min.). @ -None done U/S interpreted by me (1pt. min.). @ -None done What testing was considered but not performed or refused? (CT, X-rays, U/S, labs)? Why? @ -None What meds were considered but not given or refused? Why? @ -None Did you discuss the management of the patient with other professionals (professionals i.e. , HAILY, CORE MAN, lab, RT, psych nurse, family welfare social work professor, dairy science teacher, teacher, information assurance officer, rn case mgr)? Give summary @ -No Was smoking cessation discussed for >3mins.? @ -No Was critical care preformed (if so, how long)? @ -No Were there social determinants of health that impacted care today? How? (Homelessness, low income, unemployed, alcoholism, drug addiction, transportation, low edu. Level, literacy, decrease access to med. care, fpc, rehab)? @ -No Was there de-escalation of care discussed even if they declined (Discuss DNR or withdrawal of care, Hospice)? DNR status @ -No What co-morbidities impacted this encounter? (DM, HTN, Smoking, COPD, CAD, Cancer, CVA, ARF, Chemo, Hep., AIDS, mental health diagnosis, sleep apnea, morbid obesity)? @ -None Was patient admitted / discharged? Hospital course, mention meds given and route, prescriptions, significant lab abnormalities, going to OR and other pertinent info. @ -Patient presents due to popping open a minor surgical procedure wound located on his left buttock. Patient had an old fistula site at that area and his PCP cut it open and we stitched it on Thursday. It appears patient has lost his superficial stitches as it is open and gaping with no evidence of his sutures. Dissolvable sutures were used. No significant bleeding. No evidence of infection. Vitals within acceptable limits. I discussed with the patient and I did close the wound with a single horizontal mattress suture. Bleeding is controlled. Patient will be empirically given Bactrim. Instructed to follow-up with his PCP. Discussed suture needs to be removed in 10 days or so, and he has an appointment with Dr. Fletcher in exactly 10 days. He was in agreement this plan. Strict return precautions discussed. Patient given starter pack of Tylenol threes for home. I will provide the patient with a prescription for Bactrim. I instructed the patient to follow up with their PCP in the next 1-3 days.. I explained that the patient should return to the emergency department if they experience any worsening symptoms. Strict return precautions were discussed with the patient. The patient expressed understanding of these instructions. I answered all questions that the patient had. The patient was discharged home in good condition with their prescriptions and follow up information. Undiagnosed new problem with uncertain prognosis? @ -No Drug Therapy requiring intensive monitoring for toxicity (Heparin, Nitro, Insulin, Cardizem)? @ -No Were any procedures done? @ -Laceration repair Diagnosis/symptom? @ -Bleeding from wound, sutured skin wound Acute, or Chronic, or Acute on Chronic? @ -Acute Uncomplicated (without systemic symptoms) or Complicated (systemic symptoms)? @ -Uncomplicated Side effects of treatment? @ -No Exacerbation, Progression, or Severe Exacerbation? @ -No Poses a threat to life or bodily function? How? (Chest pain, [place], [place], pneumonia, PE, COPD, DKA, ARF, appy, cholecystitis, CVA, Diverticulitis, Homicidal, Suicidal, threat to staff... and all critical care pts) @ -No Disposition Clinical Impression: Bleeding from wound, Sutured skin wound Disposition: HOME SELF-CARE Condition: Good Instructions (If sedation given, give patient instructions): Care For Your Stitches (ED) Additional Instructions: Follow-up with Dr. Fletcher in 10 days to have your nonabsorbable suture removed. 1 single horizontal mattress suture placed in the emergency department. Return if worsening bleeding, symptoms, concern for infection. Prescriptions: Sulfamethox-Tmp 800-160Mg [Bactrim DS 800-160 mg] 1 tab PO Q12HR 7 Days #14 tab Is patient prescribed a controlled substance at d/c from ED?: No Referrals: Fiona Fletcher DO [Primary Care Provider] - 1-2 days Time of Disposition: 09:19
[2024-07-30] MEDS: SULFAMETHOX-TMP 800-160MG 1 EACH TAB PO STA (09:27)
[2024-07-30] MEDS: ACET/COD 300 MG/30 MG STARTER PACK 6 TAB BTL PO STA (09:28)
[2024-07-30 09:30] VITALS: BP 137/80; PULSE 60
== END 2024-07-30 09:33 | disposition home or self-care (01) ==
LOC: EC 07:57
CPT/HCPCS: 99283

== ENCOUNTER → 2024-09-22 | Outpatient (CLI) | payer MEDICARE, OTHER ==
--- NOTE | 2024-09-23 23:23 | CTL ---
EXAMINATION TYPE: CT Low Dose Lung DATE OF EXAM ORDERED: 09/22/2024 HISTORY: Tobacco use 1.75 PACS x40 years. Lung cancer screening CT DLP: 77.30 mGycm Automated exposure control for dose reduction was used. SCREENING VISIT: Subsequent COMPARISON: 08/06/2023 TECHNIQUE: Low dose computed tomography scan was performed through the chest at 1 mm thick sections a nd reconstructed images in the coronal plane at [address] DIAGNOSTIC QUALITY: Satisfactory FINDINGS: LUNG NODULES: Present, detailed below: 1 there is a 0.7 cm nodule peripheral right upper lobe. Series 4 image 43. Present previously LUNGS: COPD: Severity: None Fibrosis: Severity: None Lymph nodes: None Other findings: None RIGHT PLEURAL SPACE: Effusion: None Calcification: None Thickening: None Pneumothorax: None LEFT PLEURAL SPACE: Effusion: None Calcification: None Thickening: None Pneumothorax: None HEART: Other: Ascending thoracic aorta at the level the main pulmonary artery measures 3.7 cm. The main pul monary artery at the bifurcation measures 2.9 cm. Heart Size: Normal Coronary calcification: Mild Pericardial effusion: None OTHER FINDINGS: Upper abdomen: Normal Bony thorax: Normal Supraclavicular region: Normal IMPRESSION: 1. No suspicious changes for primary or metastatic disease. FOLLOW UP CT CHEST RECOMMENDATION: Follow-up low dose CT chest one year CT LUNG RAD: Lung-Rad 2 Benign Appearance or Behavior [facility], , 09/23/2024 11:21 PM
== END | disposition home or self-care (01) ==
LOC: RADCTMAIN 08:05
PROVIDERS: ATTEND Family Medicine
DX: Z12.2 Encounter for screening for malignant neoplasm of respiratory organs (principal); Z87.891 Personal history of nicotine dependence
CPT/HCPCS: 71271

== ENCOUNTER 2024-09-30 20:02 | Emergency (ER) | payer MEDICARE, OTHER ==
--- NOTE | 2024-09-30 21:26 | ED ---
Recheck HPI - General Chief Complaint: Skin/Abscess/Foreign Body Stated Complaint: Post op pain Time Seen by Provider: 09/30/24 21:04 Source: patient, RN notes reviewed, old records reviewed Limitations: no limitations - History of Present Illness Initial Comments: This is a 69-year-old male to the ER for evaluation today. This patient presents today for evaluation regards to what he believes is recurrent rectal pain rectal fistula and abscess. Patient is without fever some nausea no vomiting not feeling well and he did have coronavirus last week with fever MD Complaint: wound re-check -: days(s) Returns Today for: persistent/worsening pain related to initial visit Symptoms Since Prior Visit: no new symptoms Associated Symptoms: none Treatments Prior to Arrival: other - Related Data Home Medications Medication Instructions Recorded Confirmed Tamsulosin HCl [Flomax] 0.4 mg PO DAILY 09/02/17 03/04/24 Atorvastatin [Lipitor] 40 mg PO MOWEFR 09/04/20 03/04/24 Baclofen 10 mg PO BID 09/04/20 03/04/24 Famotidine [Pepcid] 40 mg PO BID 09/04/20 03/04/24 Alendronate Sodium [Fosamax] 70 mg PO FR 02/19/22 03/04/24 Amitriptyline HCl [Elavil] 20 mg PO HS 02/19/24 03/04/24 Celecoxib [CeleBREX] 200 mg PO BID 02/19/24 03/04/24 Ergocalciferol (Vitamin D2) 1,250 mcg PO FR 02/19/24 03/04/24 [Drisdol (50,000 Iu)] Previous Rx's Medication Instructions Recorded HYDROcodone/APAP 5-325MG [[place] 1 tab PO Q6HR PRN 3 Days #12 tab 02/22/24 5-325] Ketorolac [Toradol] 10 mg PO Q6HR #15 tab 03/07/24 Sulfamethox-Tmp 800-160Mg [Bactrim 1 tab PO Q12HR 7 Days #14 tab 07/30/24 DS 800-160 mg] Allergies Allergy/AdvReac Type Severity Reaction Status Date / Time Penicillins Allergy Unknown Verified 09/30/24 20:24 Childhood Iodinated Contrast Media AdvReac Nausea & Verified 09/30/24 20:24 [Iodinated Contrast- Oral Vomiting and IV Dye] IV DYE AdvReac Nausea & Uncoded 09/30/24 20:24 Vomiting Review of Systems ROS Statement: Those systems with pertinent positive or pertinent negative responses have been documented in the HPI. ROS Other: All systems not noted in ROS Statement are negative. Past Medical History Past Medical History: GERD/Reflux, Osteoarthritis (OA), Prostate Disorder Additional Past Medical History / Comment(s): DIVERTICULITIS. hx ruptured colon November 21, 2015. OA NECK, PINCHED NERVE. History of Any Multi-Drug Resistant Organisms: None Reported Past Surgical History: Bowel Resection, Orthopedic Surgery, Tonsillectomy Additional Past Surgical History / Comment(s): colonoscopy. lt shoulder sx. orif rt elbow. colostomy, THEN REVERSAL. PAIN CLINIC PROCEDURE Past Anesthesia/Blood Transfusion Reactions: No Reported Reaction Past Psychological History: No Psychological Hx Reported Smoking Status: Current some day smoker Past Alcohol Use History: Occasional Past Drug Use History: None Reported - Past Family History Mother Family Medical History: CVA/TIA General Exam Limitations: no limitations General appearance: alert, in no apparent distress Head exam: Present: atraumatic, normocephalic, normal inspection Eye exam: Present: normal appearance, PERRL, EOMI. Absent: scleral icterus, conjunctival injection, periorbital swelling ENT exam: Present: normal exam, mucous membranes moist Neck exam: Present: normal inspection. Absent: tenderness, meningismus, lymphadenopathy Respiratory exam: Present: normal lung sounds bilaterally. Absent: respiratory distress, wheezes, rales, rhonchi, stridor Cardiovascular Exam: Present: regular rate, normal rhythm, normal heart sounds. Absent: systolic murmur, diastolic murmur, rubs, gallop, clicks GI/Abdominal exam: Present: soft, normal bowel sounds. Absent: distended, tenderness, guarding, rebound, rigid Extremities exam: Present: normal inspection, full ROM, normal capillary refill. Absent: tenderness, pedal edema, joint swelling, calf tenderness Back exam: Present: normal inspection Neurological exam: Present: alert, oriented X3, CN II-XII intact Psychiatric exam: Present: normal affect, normal mood Skin exam: Present: warm, dry, intact, normal color. Absent: rash Course Vital Signs 09/30/24 09/30/24 20:19 23:07 Temperature 98.2 F Pulse Rate 66 61 Respiratory 18 18 Rate Blood Pressure 131/76 140/78 O2 Sat by Pulse 98 100 Oximetry - Reevaluation(s) Reevaluation #1: 09/30/24 22:06 Medical records reviewed Reevaluation #2: 09/30/24 22:06 Patient symptoms relatively unchanged no significant pain Reevaluation #3: 09/30/24 23:49 Patient informed of results and questions answered Reevaluation #4: Was pt. sent in by a medical professional or institution (, HAILY, CERTIFIED CODING SPECIALIST, urgent care, hospital, or usp...) When possible be specific @ -no Did you speak to anyone other than the patient for history (EMS, parent, family, police, friend...)? What history was obtained from this source @ -no Did you review nursing and triage notes (agree or disagree)? Why? @ -agree Are old charts reviewed (outside hosp., previous admission, EMS record, old EKG, old radiological studies, urgent care reports/EKG's, usp records)? R eport findings @ -yes Differential Diagnosis (chest pain, altered mental status, abdominal pain women, abdominal pain men, vaginal bleeding, weakness, fever, dyspnea, syncope, headache, dizziness, GI bleed, back pain, seizure, CVA, palpatations, mental health, musculoskeletal)? @ -prior EKG interpreted by me (3pts min.). @ -yes X-rays interpreted by me (1pt min.). @ -yes negative for acute disease CT interpreted by me (1pt min.). @ -no U/S interpreted by me (1pt. min.). @ -no What testing was considered but not performed or refused? (CT, X-rays, U/S, labs)? Why? @ -none What meds were considered but not given or refused? Why? @ -none Did you discuss the management of the patient with other professionals (professionals i.e. , HAILY, CERTIFIED CODING SPECIALIST, lab, RT, psych nurse, renal social worker, production mechanic tin cans, teacher, second officer, rehabilitation caseworker)? Give summary @ -no Was smoking cessation discussed for >3mins.? @ -no Was critical care preformed (if so, how long)? @ -no Were there social determinants of health that impacted care today? How? (Homelessness, low income, unemployed, alcoholism, drug addiction, transportation, low edu. Level, literacy, decrease access to med. care, [facility], rehab)? @ -none Was there de-escalation of care discussed even if they declined (Discuss DNR or withdrawal of care, Hospice)? DNR status @ -no What co-morbidities impacted this encounter? (DM, HTN, Smoking, COPD, CAD, Cancer, CVA, ARF, Chemo, Hep., AIDS, mental health diagnosis, sleep apnea, morbid obesity)? @ -none Was patient admitted / discharged? Hospital course, mention meds given and route, prescriptions, significant lab abnormalities, going to OR and other pertinent info. @ - Undiagnosed new problem with uncertain prognosis? @ -no Drug Therapy requiring intensive monitoring for toxicity (Heparin, Nitro, Insulin, Cardizem)? @ -no Were any procedures done? @ -no Diagnosis/symptom? @ - Acute, or Chronic, or Acute on Chronic? @ -Acute Uncomplicated (without systemic symptoms) or Complicated (systemic symptoms)? @ -Complicated Side effects of treatment? @ -no Exacerbation, Progression, or Severe Exacerbation? @ -exacerbation Poses a threat to life or bodily function? How? (Chest pain, [place], [place], pneumonia, PE, COPD, DKA, ARF, appy, cholecystitis, CVA, Diverticulitis, Homicidal, Suicidal, threat to staff... and all critical care pts) @ -yes Reevaluation #5: Differential Abdominal Pain Men: Appendicitis, cholecystitis, diverticulosis, ischemic bowel, pancreatitis, hepatitis, UTI, gastroenteritis, AAA, incarcerated hernia, bowel obstruction, constipation, inflammatory bowel, hepatitis, peptic ulcer disease, splenic infarction, perforated viscus, testicular torsion, this is not meant to be an all-inclusive list Medical Decision Making - Lab Data Result diagrams: 09/30/24 22:03 09/30/24 22:03 Lab Results 09/30/24 09/30/24 Range/Units 22:03 22:03 WBC 5.8 (3.8-10.6) k/uL RBC 4.63 (4.30-5.90) m/uL Hgb 14.3 (13.0-17.5) gm/dL Hct 42.5 (39.0-53.0) % MCV 91.9 (80.0-100.0) fL MCH 31.0 (25.0-35.0) pg MCHC 33.7 (31.0-37.0) g/dL RDW 13.9 (11.5-15.5) % Plt Count 163 (150-450) k/uL MPV 8.4 Neutrophils % 39 % Lymphocytes % 40 % Monocytes % 8 % Eosinophils % 9 % Basophils % 1 % Neutrophils # 2.3 (1.3-7.7) k/uL Lymphocytes # 2.3 (1.0-4.8) k/uL Monocytes # 0.5 (0-1.0) k/uL Eosinophils # 0.5 (0-0.7) k/uL Basophils # 0.1 (0-0.2) k/uL Sodium 138 (137-145) mmol/L Potassium 4.1 (3.5-5.1) mmol/L Chloride 106 (98-107) mmol/L Carbon Dioxide 28 (22-30) mmol/L Anion Gap 4 mmol/L BUN 22 H (9-20) mg/dL Creatinine 0.89 (0.66-1.25) mg/dL Est GFR (CKD-EPI)AfAm >90 (>60 ml/min/1.73 sqM) Est GFR (CKD-EPI)NonAf 88 (>60 ml/min/1.73 sqM) Glucose 100 H (74-99) mg/dL Calcium 9.4 (8.4-10.2) mg/dL Phosphorus 5.2 H (2.5-4.5) mg/dL Magnesium 2.2 (1.6-2.3) mg/dL Total Bilirubin 0.3 (0.2-1.3) mg/dL AST 26 (17-59) U/L ALT 24 (4-49) U/L Alkaline Phosphatase 67 (38-126) U/L Total Protein 6.2 L (6.3-8.2) g/dL Albumin 3.8 (3.5-5.0) g/dL Disposition Clinical Impression: Hemorrhoids Disposition: HOME SELF-CARE Condition: Good Instructions (If sedation given, give patient instructions): Hemorrhoids (ED) Is patient prescribed a controlled substance at d/c from ED?: No Referrals: Fiona Fletcher DO [Primary Care Provider] - 1-2 days Time of Disposition: 01:30
[2024-09-30 22:17] LABS: Basophils # (A) 0.1 k/uL (0-0.2); Basophils % (A) 1 %; Eosinophils # (A) 0.5 k/uL (0-0.7); Eosinophils % (A) 9 %; HCT 42.5 % (39.0-53.0); HGB 14.3 gm/dL (13.0-17.5); Lymphocytes # (A) 2.3 k/uL (1.0-4.8); Lymphocytes % (A) 40 %; MCHC 33.7 g/dL (31.0-37.0); MCV 91.9 fL (80.0-100.0); Mean Platelet Volume 8.4; Monocytes # (A) 0.5 k/uL (0-1.0); Monocytes % (A) 8 %; Neutrophils # (A) 2.3 k/uL (1.3-7.7); Neutrophils % (A) 39 %; Platelet Count 163 k/uL (150-450); RBC 4.63 m/uL (4.30-5.90); RDW 13.9 % (11.5-15.5); WBC 5.8 k/uL (3.8-10.6)
[2024-09-30] MEDS: SODIUM CHLORIDE 0.9% 1,000 ML IV STA (22:20)
[2024-09-30 22:32] LABS: ALT 24 U/L (4-49); AST 26 U/L (17-59); African American GFR (CKD) >90 (>60 ml/min/1.73 sqM); Albumin 3.8 g/dL (3.5-5.0); Alkaline Phosphatase 67 U/L (38-126); Anion Gap 4 mmol/L; Blood Urea Nitrogen 22 mg/dL (9-20); Calcium 9.4 mg/dL (8.4-10.2); Carbon Dioxide 28 mmol/L (22-30); Chloride 106 mmol/L (98-107); Glucose 100 mg/dL (74-99); Magnesium 2.2 mg/dL (1.6-2.3); Non-African American GFR(CKD) 88 (>60 ml/min/1.73 sqM); Phosphorus 5.2 mg/dL (2.5-4.5); Potassium 4.1 mmol/L (3.5-5.1); Sodium 138 mmol/L (137-145); Total Bilirubin 0.3 mg/dL (0.2-1.3); Total Protein 6.2 g/dL (6.3-8.2)
[2024-09-30] MEDS: FAMOTIDINE 20 MG/2 ML VIAL IV STA (22:56)
[2024-09-30] MEDS: methylPREDNISolone SOD SUCCI 125 MG/2 ML VIAL IV STA (22:56)
[2024-09-30] MEDS: diphenhydrAMINE 50 MG/ML 1 ML VIAL IVP STA (22:56)
--- NOTE | 2024-10-01 01:29 | CT ---
EXAM: CT Pelvis With Intravenous Contrast CLINICAL HISTORY: ITS.REASON CT Reason: postoperative Rectal Sz TECHNIQUE: Axial computed tomography images of the pelvis with intravenous contrast. CTDI is 17.3 mGy and DLP is 669.8 mGy-cm. This CT exam was performed using one or more of the following dose reduction techniques: automated exposure control, adjustment of the mA and/or kV according to patient size, and/or use of iterative reconstruction technique. COMPARISON: No relevant prior studies available. FINDINGS: Bowel: Unremarkable. No obstruction. No mucosal thickening. Appendix: Normal-appearing appendix in the right hemipelvis. Intraperitoneal space: Unremarkable. No free air. No significant fluid collection. Bladder: Distended urinary bladder. Reproductive: Unremarkable as visualized. Bones/joints: No acute fracture. No dislocation. Soft tissues: Unremarkable. Vasculature: Unremarkable. No lower abdominal aortic aneurysm. Lymph nodes: Unremarkable. No enlarged lymph nodes. IMPRESSION: Moderate distention of the urinary bladder
[2024-10-01 01:59] VITALS: BP 115/78; PULSE 60; RESP 17; TEMP 97.9
== END 2024-10-01 01:56 | disposition home or self-care (01) ==
LOC: EC 20:02
DX: K64.9 Unspecified hemorrhoids (principal); F17.200 Nicotine dependence, unspecified, uncomplicated; Z88.0 Allergy status to penicillin; Z91.041 Radiographic dye allergy status; Z91.048 Other nonmedicinal substance allergy status; Z90.89 Acquired absence of other organs
CPT/HCPCS: 36415; 72193; 80053; 83735; 84100; 85025; 96360; 99284

== ENCOUNTER 2024-10-27 08:59 | Day surgery (SDC) | payer MEDICARE, OTHER ==
[2024-10-25 13:35] VITALS: BMI 25.7
[2024-10-27] MEDS: IV FLUID CONTINUATION 1,000 ML IV ONE ×2 (10:25→11:03)
[2024-10-27] MEDS: LACTATED RINGERS 1,000 ML IV SCH (10:28)
[2024-10-27 10:32] VITALS: TEMP 97
[2024-10-27] MEDS ORDERED: LIDOCAINE 1% INJ 10MG/ML (20 ML MDV) ONE (11:04)
[2024-10-27] MEDS ORDERED: PROPOFOL 10 MG/ML 20 ML VIAL IV ONE (11:04)
--- NOTE | 2024-10-27 11:06 | P.GSHP ---
History of Present Illness H&P Date: 10/27/24 Chief Complaint: Screening colonoscopy This a 69-year-old male presents today for screening colonoscopy. Patient denies any significant GI complaints. Past Medical History Past Medical History: GERD/Reflux, Hyperlipidemia, Osteoarthritis (OA), Prostate Disorder Additional Past Medical History / Comment(s): DIVERTICULITIS. hx ruptured colon November 21, 2015. OA NECK, PINCHED NERVE. History of Any Multi-Drug Resistant Organisms: None Reported Past Surgical History: Bowel Resection, Orthopedic Surgery, Tonsillectomy Additional Past Surgical History / Comment(s): colonoscopy. lt shoulder sx. orif rt elbow. colostomy, THEN REVERSAL. PAIN CLINIC PROCEDURE Past Anesthesia/Blood Transfusion Reactions: No Reported Reaction Additional Past Anesthesia/Blood Transfusion Reaction / Comment(s): no blood transfusion Smoking Status: Current some day smoker - Past Family History Mother Family Medical History: CVA/TIA Medications and Allergies Home Medications Medication Instructions Recorded Confirmed Type Tamsulosin HCl [Flomax] 0.4 mg PO HS 09/02/17 10/27/24 History Atorvastatin [Lipitor] 40 mg PO MOWEFR 09/04/20 10/27/24 History Baclofen 10 mg PO BID 09/04/20 10/25/24 History Famotidine [Pepcid] 40 mg PO BID 09/04/20 10/27/24 History Alendronate Sodium [Fosamax] 70 mg PO FR 02/19/22 10/27/24 History Amitriptyline HCl [Elavil] 20 mg PO HS 02/19/24 10/27/24 History Celecoxib [CeleBREX] 200 mg PO BID 02/19/24 10/25/24 History Ergocalciferol (Vitamin D2) 1,250 mcg PO FR 02/19/24 10/25/24 History [Drisdol (50,000 Iu)] Gabapentin 300 mg PO DAILY 10/25/24 10/27/24 History Allergies Allergy/AdvReac Type Severity Reaction Status Date / Time Penicillins Allergy Unknown Verified 10/27/24 10:17 Childhood Iodinated Contrast Media AdvReac Nausea & Verified 10/27/24 10:17 [Iodinated Contrast- Oral Vomiting and IV Dye] IV DYE AdvReac Nausea & Uncoded 10/27/24 10:17 Vomiting Surgical - Exam Vital Signs Temp Pulse Resp BP Pulse Ox 97.0 F L 60 18 120/75 95 10/27/24 10:25 10/27/24 10:25 10/27/24 10:25 10/27/24 10:25 10/27/24 10:25 - General well developed, well nourished, no distress - Eyes PERRL - ENT normal pinna, normal nares - Neck no masses - Respiratory normal expansion - Cardiovascular Rhythm: regular - Abdomen Abdomen: soft, non tender Assessment and Plan Assessment: Will perform screening colonoscopy
--- NOTE | 2024-10-27 11:15 | P.OP ---
Date of Procedure: 10/27/24 Preoperative Diagnosis: Screening colonoscopy Postoperative Diagnosis: Normal colon to left colon. Poor colon prep Procedure(s) Performed: Colonoscopy Anesthesia: MAC Surgeon: Anthony Quintana Pathology: none sent Condition: stable Disposition: PACU Description of Procedure: Patient is placed on the endoscopy table in the lateral position. He received IV sedation. Digital rectal exams performed. There were external hemorrhoids noted. The flexible colonoscope was then placed patient anus and passed with the colon. Scope be passed beyond the left colon secondary to poor bowel prep. There was a large amount of solid stool in the left colon. At this point the scope was withdrawn. The visualized left colon and sigmoid colon appeared normal. The rectum appeared normal. Scope was brought the patient. Patient will need to be reprepped for colonoscopy.
[2024-10-27 11:54] VITALS: BP 115/75; PULSE 78; RESP 18
== END 2024-10-27 12:16 | disposition home or self-care (01) ==
LOC: ORWHC2ENDO 08:59
PROVIDERS: ATTEND Surgery
DX: Z12.11 Encounter for screening for malignant neoplasm of colon (principal); K21.9 Gastro-esophageal reflux disease without esophagitis; E78.5 Hyperlipidemia, unspecified; M19.90 Unspecified osteoarthritis, unspecified site; F17.200 Nicotine dependence, unspecified, uncomplicated; Z88.0 Allergy status to penicillin; Z90.89 Acquired absence of other organs; Z91.041 Radiographic dye allergy status; Z98.890 Other specified postprocedural states
CPT/HCPCS: J2003; J2704; G0121; 45378

== ENCOUNTER 2024-11-21 09:08 | Emergency (ER) | payer MEDICARE, OTHER ==
--- NOTE | 2024-11-21 09:17 | ED ---
General Adult HPI - General Source: patient, RN notes reviewed, old records reviewed Mode of arrival: ambulatory Limitations: no limitations <Harmony Gaytan - Last Filed: 11/21/24 15:05> <Balwinder Nguyen - Last Filed: 11/21/24 15:29> - General Stated complaint: Skin Infection Time Seen by Provider: 11/21/24 09:16 - History of Present Illness Initial comments: 69-year-old male presented to the ER for evaluation of left buttock abscess. 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 He states he believes this may be returning as yesterday it was the size of a peanut and today is the size of his finger. He denies any bleeding or drainage from area. No fevers. He does admit to chills yesterday. No change in bowel habits. (Harmony Gaytan) - Related Data Home Medications Medication Instructions Recorded Confirmed Tamsulosin HCl [Flomax] 0.4 mg PO HS 09/02/17 10/27/24 Atorvastatin [Lipitor] 40 mg PO MOWEFR 09/04/20 10/27/24 Baclofen 10 mg PO BID 09/04/20 10/25/24 Famotidine [Pepcid] 40 mg PO BID 09/04/20 10/27/24 Alendronate Sodium [Fosamax] 70 mg PO FR 02/19/22 10/27/24 Amitriptyline HCl [Elavil] 20 mg PO HS 02/19/24 10/27/24 Celecoxib [CeleBREX] 200 mg PO BID 02/19/24 10/25/24 Ergocalciferol (Vitamin D2) 1,250 mcg PO FR 02/19/24 10/25/24 [Drisdol (50,000 Iu)] Gabapentin 300 mg PO DAILY 10/25/24 10/27/24 Previous Rx's Medication Instructions Recorded Ciprofloxacin HCl [Cipro] 500 mg PO Q12HR #20 tablet 11/21/24 metroNIDAZOLE [Flagyl] 500 mg PO TID #30 tab 11/21/24 Allergies Allergy/AdvReac Type Severity Reaction Status Date / Time Penicillins Allergy Unknown Verified 11/21/24 10:03 Childhood Iodinated Contrast Media AdvReac Nausea & Verified 11/21/24 10:03 [Iodinated Contrast- Oral Vomiting and IV Dye] IV DYE AdvReac Nausea & Uncoded 11/21/24 10:03 Vomiting Review of Systems ROS Other: All systems not noted in ROS Statement are negative. <Harmony Gaytan - Last Filed: 11/21/24 15:05> ROS Other: All systems not noted in ROS Statement are negative. <Balwinder Nguyen - Last Filed: 11/21/24 15:29> ROS Statement: Those systems with pertinent positive or pertinent negative responses have been documented in the HPI. Past Medical History Past Medical History: GERD/Reflux, Hyperlipidemia, Osteoarthritis (OA), Prostate Disorder Additional Past Medical History / Comment(s): DIVERTICULITIS. hx ruptured colon November 21, 2015. OA NECK, PINCHED NERVE. History of Any Multi-Drug Resistant Organisms: None Reported Past Surgical History: Bowel Resection, Orthopedic Surgery, Tonsillectomy Additional Past Surgical History / Comment(s): colonoscopy. lt shoulder sx. orif rt elbow. colostomy, THEN REVERSAL. PAIN CLINIC PROCEDURE Past Anesthesia/Blood Transfusion Reactions: No Reported Reaction Additional Past Anesthesia/Blood Transfusion Reaction / Comment(s): no blood transfusion Smoking Status: Current some day smoker - Past Family History Mother Family Medical History: CVA/TIA <Harmony Gaytan - Last Filed: 11/21/24 15:05> General Exam General appearance: alert, in no apparent distress Respiratory exam: Present: normal lung sounds bilaterally. Absent: respiratory distress, wheezes, rales, rhonchi, stridor Cardiovascular Exam: Present: regular rate, normal rhythm, normal heart sounds. Absent: systolic murmur, diastolic murmur, rubs, gallop, clicks GI/Abdominal exam: Present: soft, normal bowel sounds. Absent: distended, tenderness, guarding, rebound, rigid Rectal exam: Present: other (Area of fluctuance to left buttock with overlying erythema. No purulent drainage noted.) <Harmony Gaytan - Last Filed: 11/21/24 15:05> - General Exam Comments Initial Comments: Visual Physical Exam Vital signs reviewed General: Well-appearing, nontoxic, no acute distress. Head: Normocephalic, atraumatic Eyes: PERRLA, EOMI ENT: Airway patent Chest: Nonlabored breathing Skin: No visual rash, normal skin tone Neuro: Alert and oriented 3 Musculoskeletal: No gross abnormalities (Harmony Gaytan) Course <Harmony Gaytan - Last Filed: 11/21/24 15:05> Vital Signs 11/21/24 09:59 Temperature 97.9 F Pulse Rate 62 Respiratory 22 Rate Blood Pressure 136/80 O2 Sat by Pulse 98 Oximetry - Reevaluation(s) Reevaluation #1: 11/21/24 14:[address] Bella. He advised on I&D and patient started on oral antibiotics. (Harmony Gaytan) Procedures - Incision & Drainage Consent Obtained: verbal consent Indication: periAnal abscess Site: buttock Size (cm): 3 Anesthetic Used: lidocaine 1% Amount (mLs): 3 I&D Cleaning Method: Chloroprep Sterile Field Used?: Yes Scalpel Used: #11 Ultrasound used: No Needle Aspiration Performed?: No Irrigation Performed?: No I&D Drainage Obtained: Pus Loculation Noted: probing needed to break Packing: Iodoform Culture Obtained?: No Patient Tolerated Procedure: well <Balwinder Nguyen - Last Filed: 11/21/24 15:29> Medical Decision Making - Lab Data Result diagrams: 11/21/24 10:43 11/21/24 10:43 - Radiology Data Radiology results: report reviewed, image reviewed <Harmony Gaytan - Last Filed: 11/21/24 15:05> - Lab Data Result diagrams: 11/21/24 10:43 11/21/24 10:43 <Balwinder Nguyen - Last Filed: 11/21/24 15:29> - Medical Decision Making I performed the quick note portion of this chart. Electronically signed by Harmony Gaytan PA-C Was pt. sent in by a medical professional or institution ([facility]anes, WEB MACHINE TENDER, urgent care, hospital, or correction...) When possible be specific @ -No Did you speak to anyone other than the patient for history (EMS, parent, family, police, friend...)? What history was obtained from this source @ -No Did you review nursing and triage notes (agree or disagree)? Why? @ -I reviewed and agree with nursing and triage notes Were old charts reviewed (outside hosp., previous admission, EMS record, old EKG, old radiological studies, urgent care reports/EKG's, correction records)? Report findings @ -No old charts were reviewed Differential Diagnosis (chest pain, altered mental status, abdominal pain women, abdominal pain men, vaginal bleeding, weakness, fever, dyspnea, syncope, headache, dizziness, GI bleed, back pain, seizure, CVA, palpatations, mental he alth, musculoskeletal)? @ -Fistula, abscess, cyst, pilonidal cyst... this list is not meant to be all inclusive EKG interpreted by me (3pts min.). @ -None done X-rays interpreted by me (1pt min.). @ -None done CT interpreted by me (1pt min.). @ -Pelvis CT showing a left perianal abscess measuring up to 3.9 cm with underlying fistula not excluded. U/S interpreted by me (1pt. min.). @ -None done What testing was considered but not performed or refused? (CT, X-rays, U/S, labs)? Why? @ -None What meds were considered but not given or refused? Why? @ -None Did you discuss the management of the patient with other professionals (professionals i.e. , PA, WEB MACHINE TENDER, lab, RT, psych nurse, social worker school, wheelage clerk, teacher, strategic intelligence officer, case liner)? Give summary @ -Yes, case was discussed with Dr. Bella. He advised on I &D along with oral antibiotics with outpatient follow-up. Was smoking cessation discussed for >3mins.? @ -No Was critical care preformed (if so, how long)? @ -No Were there social determinants of health that impacted care today? How? (Homelessness, low income, unemployed, alcoholism, drug addiction, transportation, low edu. Level, literacy, decrease access to med. care, skilled nursing, rehab)? @ -No Was there de-escalation of care discussed even if they declined (Discuss DNR or withdrawal of care, Hospice)? DNR status @ -No What co-morbidities impacted this encounter? (DM, HTN, Smoking, COPD, CAD, Cancer, CVA, ARF, Chemo, Hep., AIDS, mental health diagnosis, sleep apnea, morbid obesity)? @ -None Was patient admitted / discharged? Hospital course, mention meds given and route, prescriptions, significant lab abnormalities, going to OR and other pertinent info. @ -Discharge. 69-year-old male presented to the ER for evaluation of left buttock pain. Patient has a history of perianal abscess with drainage by Dr. Reza in February 2024. For the past 24 hours he has had increase in pain. History and physical exam completed. Vitals within normal limits. Laboratory studies obtained showing leukocytosis of 13.2 with a left shift. Lactic normal at 0.[address]. [address] pelvis showing a left perianal abscess measuring up to 3.9 cm with underlying fistula not excluded. Due to the CT findings Case was discussed with Dr. Bella, who stated to I&D abscess and initiate oral antibiotics. He states patient can be discharged home with close follow-up outpatient. I&D performed, see note above. Ciprofloxacin and Flagyl prescribed. Strict return parameters discussed. Patient discharged in stable condition with follow-up to PCP. Patient verbally expressed understanding and agreement with care plan. Case discussed with ED attending, Dr. Nguyen. Undiagnosed new problem with uncertain prognosis? @ -No Drug Therapy requiring intensive monitoring for toxicity (Heparin, Nitro, Insulin, Cardizem)? @ -No Were any procedures done? @ -Yes, I&D Diagnosis/symptom? @ -Perianal abscess Acute, or Chronic, or Acute on Chronic? @ -Acute Uncomplicated (without systemic symptoms) or Complicated (systemic symptoms)? @ -Uncomplicated Side effects of treatment? @ -No Exacerbation, Progression, or Severe Exacerbation? @ -No Poses a threat to life or bodily function? How? (Chest pain, [place], [place], pneumonia, PE, COPD, DKA, ARF, appy, cholecystitis, CVA, Diverticulitis, Homicidal, Suicidal, threat to staff... and all critical care pts) @ -Yes can lead to sepsis (Harmony Gaytan) - Lab Data Lab Results 11/21/24 11/21/24 11/21/24 Range/Units 10:43 10:43 10:43 WBC 13.2 H (3.8-10.6) k/uL RBC 4.53 (4.30-5.90) m/uL Hgb 14.2 (13.0-17.5) gm/dL Hct 42.5 (39.0-53.0) % MCV 93.7 (80.0-100.0) fL MCH 31.4 (25.0-35.0) pg MCHC 33.5 (31.0-37.0) g/dL RDW 13.3 (11.5-15.5) % Plt Count 233 (150-450) k/uL MPV 7.4 Neutrophils % 67 % Lymphocytes % 17 % Monocytes % 8 % Eosinophils % 5 % Basophils % 1 % Neutrophils # 8.9 H (1.3-7.7) k/uL Lymphocytes # 2.2 (1.0-4.8) k/uL Monocytes # 1.1 H (0-1.0) k/uL Eosinophils # 0.6 (0-0.7) k/uL Basophils # 0.1 (0-0.2) k/uL Sodium 139 (137-145) mmol/L Potassium 4.9 (3.5-5.1) mmol/L Chloride 106 (98-107) mmol/L Carbon Dioxide 23 (22-30) mmol/L Anion Gap 10 mmol/L BUN 22 H (9-20) mg/dL Creatinine 0.81 (0.66-1.25) mg/dL Est GFR (CKD-EPI)AfAm >90 (>60 ml/min/1.73 sqM) Est GFR (CKD-EPI)NonAf >90 (>60 ml/min/1.73 sqM) Glucose 66 L (74-99) mg/dL Plasma Lactic Acid Prashanth 0.7 (0.7-2.0) mmol/L Calcium 9.9 (8.4-10.2) mg/dL Total Bilirubin 0.4 (0.2-1.3) mg/dL AST 20 (17-59) U/L ALT 19 (4-49) U/L Alkaline Phosphatase 76 (38-126) U/L Total Protein 6.8 (6.3-8.2) g/dL Albumin 4.3 (3.5-5.0) g/dL Disposition Is patient prescribed a controlled substance at d/c from ED?: No Time of Disposition: 14:49 <Harmony Gaytan - Last Filed: 11/21/24 15:05> <Balwinder Nguyen - Last Filed: 11/21/24 15:29> Clinical Impression: Perianal abscess Disposition: HOME SELF-CARE Condition: Stable Instructions (If sedation given, give patient instructions): Abscess Incision and Drainage (ED), Rectal Abscess (ED) Additional Instructions: Please follow-up closely with Dr. Reza in office by the end of the week. Take ciprofloxacin and Flagyl as prescribed. Return to the ER for any new or worsening concerns. Prescriptions: Ciprofloxacin HCl [Cipro] 500 mg PO Q12HR #20 tablet metroNIDAZOLE [Flagyl] 500 mg PO TID #30 tab Referrals: Eldon Fletcher MD [Primary Care Provider] - 1-2 days Dominick Reza DO [Doctor of Osteopathic Medicine] - 1-2 days
[2024-11-21 11:28] LABS: Basophils # (A) 0.1 k/uL (0-0.2); Basophils % (A) 1 %; Eosinophils # (A) 0.6 k/uL (0-0.7); Eosinophils % (A) 5 %; HCT 42.5 % (39.0-53.0); HGB 14.2 gm/dL (13.0-17.5); Lymphocytes # (A) 2.2 k/uL (1.0-4.8); Lymphocytes % (A) 17 %; MCH 31.4 pg (25.0-35.0); MCHC 33.5 g/dL (31.0-37.0); MCV 93.7 fL (80.0-100.0); Mean Platelet Volume 7.4; Monocytes # (A) 1.1 k/uL (0-1.0); Monocytes % (A) 8 %; Neutrophils # (A) 8.9 k/uL (1.3-7.7); Neutrophils % (A) 67 %; Platelet Count 233 k/uL (150-450); RBC 4.53 m/uL (4.30-5.90); RDW 13.3 % (11.5-15.5); WBC 13.2 k/uL (3.8-10.6)
[2024-11-21 11:30] LABS: ALT 19 U/L (4-49); AST 20 U/L (17-59); African American GFR (CKD) >90 (>60 ml/min/1.73 sqM); Albumin 4.3 g/dL (3.5-5.0); Alkaline Phosphatase 76 U/L (38-126); Anion Gap 10 mmol/L; Blood Urea Nitrogen 22 mg/dL (9-20); Calcium 9.9 mg/dL (8.4-10.2); Carbon Dioxide 23 mmol/L (22-30); Chloride 106 mmol/L (98-107); Glucose 66 mg/dL (74-99); Non-African American GFR(CKD) >90 (>60 ml/min/1.73 sqM); Potassium 4.9 mmol/L (3.5-5.1); Sodium 139 mmol/L (137-145); Total Bilirubin 0.4 mg/dL (0.2-1.3); Total Protein 6.8 g/dL (6.3-8.2)
[2024-11-21] MEDS: diphenhydrAMINE 50 MG/ML 1 ML VIAL IVP STA (12:43)
[2024-11-21] MEDS: FAMOTIDINE 20 MG/2 ML VIAL IV STA (12:44)
[2024-11-21] MEDS: ONDANSETRON 4 MG/2 ML VIAL IVP STA (12:45)
[2024-11-21] MEDS: methylPREDNISolone SOD SUCCI 125 MG/2 ML VIAL IV STA (12:46)
--- NOTE | 2024-11-21 13:47 | CT ---
EXAMINATION TYPE: CT pelvis w con CT DLP: 675.7 mGycm, Automated exposure control for dose reduction was used. DATE OF EXAM: 11/21/2024 1:37 PM COMPARISON: CT pelvis 02/19/2024\ CLINICAL INDICATION:Male, 69 years old with history of rectal abscess; rectal abscess TECHNIQUE: Standard CT of the pelvis following the administration of 100 cc of Isovue [address] material. Coronal and sagittal reformats were performed. FINDINGS: LIVER: The visualized inferior right hepatic lobe is unremarkable. KIDNEYS AND URETERS: No renal calculi within the visualized portions of both kidneys. No overt hydron ephrosis is identified. The kidneys enhance symmetrically. Contrast is demonstrated within both urete rs on the delayed phase. BLADDER: Unremarkable REPRODUCTIVE: Prostate is enlarged in size measuring 5.5 cm in transverse dimension. BOWEL: Anastomosis involving the sigmoid colon redemonstrated with moderate amount of stool at the an astomotic site. No focal bowel wall thickening. The appendix is within normal limits. No evidence of bowel obstruction. PERITONEUM: No evidence of pneumoperitoneum or free fluid. PERINEUM: Left perianal abscess with extension in the left gluteal crease with a fluid collection prosper suring approximately 3.9 x 1.5 cm (series 404, image 92). There is surrounding inflammatory changes. These abuts the left inferior aspect of the anus. VASCULATURE: No evidence of aortic aneurysm. MUSCULOSKELETAL: No acute osseous abnormalities. Mild retrolisthesis of L3 on L4. Moderate multilevel degenerative disc disease and facet arthropathy. LYMPH NODES: No gross evidence for lymphadenopathy. SOFT TISSUE/ABDOMINAL WALL: Unremarkable IMPRESSION: Left perianal abscess measuring up to 3.9 cm with underlying fistula not excluded. [facility], , 11/21/2024 1:45 PM
[2024-11-21] MEDS: LIDOCAINE 1% INJ 10MG/ML (20 ML MDV) SQ ONE (15:14)
[2024-11-21] MEDS: KETOROLAC 15 MG/ML 1 ML VIAL IVP STA (15:43)
[2024-11-21 15:47] VITALS: BP 124/78; PULSE 78; RESP 16; TEMP 98.7
== END 2024-11-21 15:48 | disposition home or self-care (01) ==
LOC: EC 09:08
DX: K61.0 Anal abscess (principal); F17.200 Nicotine dependence, unspecified, uncomplicated; Z88.0 Allergy status to penicillin; Z91.041 Radiographic dye allergy status
CPT/HCPCS: 36415; 80053; 83605; 85025; 72193; 46045; 99283; 96374; 96375 ×4; J1200; J2405; J2003; J3490; J1885; Q9967; J2919